=== PATIENT | male | born 1945 | race Caucasian/White ===

== ENCOUNTER 2020-06-04 01:16 | Emergency (ER) | payer MEDICARE, MEDICAID, SELFPAY ==
--- NOTE | ~2020-06-04 | CT_ITS ---
EXAMINATION: CT ABDOMEN AND PELVIS WITHOUT CONTRAST CLINICAL INFORMATION: Left flank pain, lower back pain COMPARISON: None TECHNIQUE: Multidetector volumetric imaging was performed from the superior aspect of the liver through the pubic symphysis. Sagittal and coronal reformatted images were obtained on the technologist's workstation. This CT examination was performed using dose optimization techniques as appropriate, variously including the following: *Automated exposure control *Adjustment of mA and/or kV according to patient size (this includes techniques or standardized protocols for targeted exams where dose is matched to indication/reason for exam; i.e. extremities or head) *Use of iterative reconstruction technique DLP: 514 mGy-cm FINDINGS: LUNG BASES: Mild dependent atelectasis bilaterally. Coronary artery calcifications are present. LIVER, GALLBLADDER, AND BILIARY TREE: The liver is normal in size, shape, and attenuation. No focal hepatic lesion or biliary ductal dilatation is identified. The gallbladder is unremarkable with no evidence of radiopaque gallstones, gallbladder wall thickening, or obvious pericholecystic inflammatory changes. PANCREAS: Unremarkable. SPLEEN: Unremarkable. ADRENAL GLANDS: Unremarkable. KIDNEYS AND URETERS: The kidneys are normal in size, shape, and attenuation. No hydronephrosis, hydroureter, or calculi seen. No perinephric stranding. BLADDER: Partially distended with mildly thick-walled appearance. Right-sided bladder diverticulum is noted. GASTROINTESTINAL TRACT: No evidence of bowel obstruction. No significant bowel wall thickening seen. Large amount of stool is present. No free fluid or free air is seen. ABDOMINAL WALL: No significant hernia is appreciated. LYMPH NODES: Normal. VASCULAR: There is atherosclerotic calcification along the aorta. PELVIC VISCERA: Unremarkable. OSSEOUS STRUCTURES: Degenerative changes are noted in the spine. CT/CT abdomen pelvis wo con IMPRESSION: 1. No hydronephrosis or calculus identified. 2. Mildly thick-walled appearance of the urinary bladder, which could reflect cystitis or sequelae of chronic outlet obstruction. 3. Large volume of stool.
[2020-06-04 01:28] VITALS: BP 160/81; PULSE 89; RESP 18; TEMP 36.9; O2SAT 100; BMI 21.9
--- NOTE | 2020-06-04 02:10 | ED.GENADULT ---
HPI - General Adult General Chief complaint: Back Pain/Injury Stated complaint: Back pain Time Seen by Provider: 06/04/20 02:02 Source: patient Limitations: no limitations History of Present Illness HPI narrative: 75-year-old male who presents emergency department for evaluation of lower back pain. The patient states that the pain came on gradually 3-5 days ago. He points to his lower back and left flank area when asked to localize the pain. He states the pain is a constant, pressure-like pain that does radiate to his left lower abdomen. He states that the pain is a pressure-like pain which is moderate to severe in intensity. States that currently the pain is 10/10. The pain does not radiate to his legs. He denies any numbness or weakness in his lower extremities. He believes that he may have had a fever at home but did not take his temperature. He denied nausea, vomiting, chest pain, shortness of breath or cough. The patient denied frequency, urgency or dysuria and has not noted any hematuria. The patient states that his gave him some medications for the pain that did not help but he does not know of medications he took. Related Data Previous Rx's Medication Instructions Recorded nitrofurantoin monohyd/m-cryst 100 mg PO Q12H 7 Days #14 cap 06/04/20 [Macrobid] Allergies Allergy/AdvReac Type Severity Reaction Status Date / Time ciprofloxacin [Ciprofloxacin] Allergy Severe RASH AND Verified 06/04/20 01:27 ITCHING ALL OVER Review of Systems Review of Systems: Yes all other systems are reviewed and are negative Neurologic: Denies Abnormal speech present [facility] Past Medical History [facility] Narrative: The patient lives at home with his . Denies tobacco, alcohol and drug use. Medical History Asthma Depression Diabetes High cholesterol HTN (hypertension) Social History Social History Household Members: None Housing: Apartment Are you a primary caretaker to a significant other at home: No Do you presently have visiting nurse or other home services: No Alcohol intake: never Smoking Status: Never smoker Smoked in Last 30 Days: No Use of substances other than those prescribed or required for medical reasons: No Have you been hit, kicked, punched, or otherwise hurt by someone within the past year? If so, by whom?: No Do you feel safe in your current relationship?: No Current Relationship Is there a partner from a previous relationship who is making you feel unsafe now?: No Are you made to feel afraid or neglected: No Advance Directives: No Physical Exam Vital Signs: Vital Signs: Last Vital Signs Temp 98.4 F 06/04/20 01:28 Pulse 89 06/04/20 01:28 Resp 18 06/04/20 01:28 BP 160/81 H 06/04/20 01:28 Pulse Ox 100 06/04/20 01:28 Body Mass Index 21.9 Const: General: cooperative and in distress moderate (Secondary to back pain) Orientation/consciousness: oriented to person and oriented to place Limitations: no limitations HENMT: Head: Yes normal to inspection, Yes normocephalic and Yes atraumatic Ears: external ears normal General nose exam: Normal external nose present Face and sinus: Yes normal facial exam Mouth: Normal oral and palatal mucosa present Throat: Yes posterior oropharynx normal Eyes: Periorbital: periorbital findings normal Eyelids: Yes eyelids normal Conjunctivae: conjunctivae normal Sclerae: sclerae normal Corneas: corneas normal Pupils: Equal, round and reactive pupils present Direct Ophthalmoscopy: normal light reflex Neck: Neck: Yes full ROM, Yes no lymphadenopathy, Yes no meningeal signs, Yes trachea midline and Yes supple Chest: Chest palpation & inspection: normal inspection of the chest and normal palpation of entire chest wall Resp: Effort & Inspection: normal respiratory effort and able to speak in complete sentences Auscultation: clear to auscultation bilaterally Cardio: Rate: regular rate Rhythm: regular rhythm Heart sounds: S1 normal heart sound present, S2 normal heart sound present and no murmurs GI: Inspection: Yes normal to inspection Palpation (GI): Soft to palpation, Tenderness to palpation present (GI) in the LLQ (Moderate), no guarding, not rigid and No hepatosplenomegaly present Back/Spine/Pelvis: Back: CVA tenderness (Left sided) Cervical Spine: normal cervical lordosis Thoracic/Lumbar Spine: thoracic and lumbar spine normal to inspection, paraspinal muscle tenderness on the left in the mid lumbar and in the lower lumbar and lumbar spinal tenderness at L3, at L4 and at L5 Skin: Lesions: no lesions Rashes: no rashes Wounds: no wounds Neuro: General: oriented to person, oriented to place and no meningeal signs Cranial nerves: Yes CN's II-XII intact bilaterally and Yes Equal, round and reactive pupils present Cognition (Neuro): normal cognition Speech: No Abnormal speech present Motor exam (neuro): 5/5 motor strength present throughout Extrem: General: Yes normal to inspection and Yes full ROM Psych: Appearance: well kempt Mental Status: mental status grossly normal Speech and movement: Normal speech and movement present Affect: normal affect Attitude: cooperative Thought process: Normal thought process present Thought content: Normal thought content present Course Course Course Narrative: 75-year-old male who presents emergency department for evaluation of left sided back and flank tenderness times 3-4 days which is gotten progressively worse. The patient's examination did reveal tenderness with palpation of the left lumbar paraspinal muscles, lumbar vertebrae, left lower quadrant and left CVA tenderness. The patient's differential includes but is not limited to musculoskeletal injury and possible renal stone. I did order laboratory evaluation and a CT scan of the patient's abdomen pelvis without IV contrast. The patient's pain will be treated with Toradol 30 mg IV. 0350: The patient feels significantly better after receiving the Toradol IV. His laboratory evaluation is consistent with a urinary tract infection. CT scan of the abdomen and pelvis without contrast did reveal bladder wall thickening which could be consistent with acute cystitis, he has arthritic changes of his spine and there were no other significant abnormalities noted to explain his back pain. The patient was given a dose of Macrobid 100 mg orally and will be started on Macrobid 100 mg twice a day for 7 days. He was advised to take ibuprofen Tylenol for his pain. He was given verbal and printed instructions and discharged home. Medical Decision Making Lab Data Result diagrams: 06/04/20 02:54 06/04/20 02:54 Labs: Lab Results 06/04/20 06/04/20 06/04/20 Range/Units 02:54 02:54 02:54 WBC 7.5 (4.8-10.8) X10*3/uL RBC 3.92 L (4.60-5.80) X10*6/uL Hgb 12.7 L (14.0-18.0) g/dl Hct 38.7 L (42-52) % MCV 98.7 H (80-98) fL MCH 32.4 (27.0-33.0) pg MCHC 32.8 (31.0-36.0) g/dl RDW 12.2 (11.0-16.0) % Plt Count 143 L (160-400) X10*3/uL MPV 10.3 (9.4-12.4) fL Immature Gran % (Auto) 0.3 (0.0-0.4) % Neut % (Auto) 54.2 (45-73) % Lymph % (Auto) 34.9 (20-40) % Garrett % (Auto) 9.0 (2-11) % Eos % (Auto) 1.3 (0-4) % Baso % (Auto) 0.3 (0-2) % Lymph # (Auto) 2.6 (1.2-4.9) X10*3/uL Garrett # (Auto) 0.7 (0.1-1.2) X10*3/uL Eos # (Auto) 0.1 (0.0-0.4) X10*3/uL Baso # (Auto) 0.0 (0.0-0.2) X10*3/uL Abs Immat Gran (auto) 0.02 (0.00-0.03) X10*3/uL Absolute Neuts (auto) 4.0 (2.0-8.3) X10*3/uL Absolute Nucleated RBC 0.000 (0.0-0.012) X10*3/uL Nucleated RBC % (auto) 0.0 (0.0-0.2) /100WBC Sodium 141 (135-145) mmol/L Potassium 4.0 (3.3-5.1) mmol/L Chloride 106 (96-108) mmol/L Carbon Dioxide 24 (22-29) mmol/L Anion Gap 15 (12-20) BUN 20 H (9-16) mg/dL Creatinine 1.15 (0.5-1.4) mg/dL Estim Creat Clear Calc 45.4 Estimated GFR > 60 Random Glucose 158 H (60-115) mg/dL Calcium 8.6 (8.4-10.2) mg/dL Total Bilirubin 0.3 (0.0-1.0) mg/dL AST 16 (5-37) U/L ALT 12 (0-40) U/L Alkaline Phosphatase 40 (39-117) U/L Total Protein 6.6 (6.5-8.0) g/dL Albumin 3.8 (3.5-5.0) g/dL Lipase 14 (8-78) U/L Urine Color Urine Appearance Urine pH (5.0-8.0) Ur Specific [place] (1.005-1.025) Urine Protein (NEG-TRACE) MG/DL Urine Glucose (UA) (NEG) MG/DL Urine Ketones (NEG) MG/DL Urine Blood (NEG) Urine Nitrite (NEG) Ur Leukocyte Esterase (NEG) Urine RBC (0) /HPF Urine WBC (0-4) /HPF Ur Squamous Epith Cells /LPF Urine Bacteria /LPF 06/04/20 Range/Units 03:22 WBC (4.8-10.8) X10*3/uL RBC (4.60-5.80) X10*6/uL Hgb (14.0-18.0) g/dl Hct (42-52) % MCV (80-98) fL MCH (27.0-33.0) pg MCHC (31.0-36.0) g/dl RDW (11.0-16.0) % Plt Count (160-400) X10*3/uL MPV (9.4-12.4) fL Immature Gran % (Auto) (0.0-0.4) % Neut % (Auto) (45-73) % Lymph % (Auto) (20-40) % Garrett % (Auto) (2-11) % Eos % (Auto) (0-4) % Baso % (Auto) (0-2) % Lymph # (Auto) (1.2-4.9) X10*3/uL Garrett # (Auto) (0.1-1.2) X10*3/uL Eos # (Auto) (0.0-0.4) X10*3/uL Baso # (Auto) (0.0-0.2) X10*3/uL Abs Immat Gran (auto) (0.00-0.03) X10*3/uL Absolute Neuts (auto) (2.0-8.3) X10*3/uL Absolute Nucleated RBC (0.0-0.012) X10*3/uL Nucleated RBC % (auto) (0.0-0.2) /100WBC Sodium (135-145) mmol/L Potassium (3.3-5.1) mmol/L Chloride (96-108) mmol/L Carbon Dioxide (22-29) mmol/L Anion Gap (12-20) BUN (9-16) mg/dL Creatinine (0.5-1.4) mg/dL Estim Creat Clear Calc Estimated GFR Random Glucose (60-115) mg/dL Calcium (8.4-10.2) mg/dL Total Bilirubin (0.0-1.0) mg/dL AST (5-37) U/L ALT (0-40) U/L Alkaline Phosphatase (39-117) U/L Total Protein (6.5-8.0) g/dL Albumin (3.5-5.0) g/dL Lipase (8-78) U/L Urine Color YELLOW Urine Appearance CLEAR Urine pH 6.5 (5.0-8.0) Ur Specific [place] 1.015 (1.005-1.025) Urine Protein NEG (NEG-TRACE) MG/DL Urine Glucose (UA) NEG (NEG) MG/DL Urine Ketones NEG (NEG) MG/DL Urine Blood TRACE (NEG) Urine Nitrite NEG (NEG) Ur Leukocyte Esterase 1+ H (NEG) Urine RBC 5-9 H (0) /HPF Urine WBC 15-29 H (0-4) /HPF Ur Squamous Epith Cells 1+ /LPF Urine Bacteria 1+ /LPF Discharge Plan Discharge Clinical Impression: Acute UTI Strain of lumbar region Qualifiers: Encounter type: initial encounter Qualified Code(s): S39.012A - Strain of muscle, fascia and tendon of lower back, initial encounter Patient Disposition: Home, Self-Care Instructions: Urinary Tract Infection in Men (ED), Low Back Strain (ED) Additional Instructions: Your blood work was unremarkable. The CT scan of your abdomen and pelvis without IV contrast revealed arthritis of your lower back, bladder infection but no kidney stones. Your urinalysis is consistent with a urinary tract infection. You received Toradol 30 mg IV, this is a strong anti-inflammatory medication and this seemed to help you pain. Take ibuprofen 200 mg pills, 2 pills every 6 hours as needed for pain. Take Tylenol (acetaminophen) 500 mg pills, 2 pills every 4 to 6 hours as needed for pain. For your urine infection take Macrobid 100 mg, 1 pill twice a day for 7 days. Follow-up with your doctor in 2 days. Please return to the emergency department if your symptoms get worse or if you develop any symptoms that are concerning to you. Prescriptions: New nitrofurantoin monohyd/m-cryst [Macrobid] 100 mg capsule 100 mg PO Q12H 7 Days Qty: 14 RF: 0
[2020-06-04] MEDS: Ketorolac Tromethamine 30 MG/ML VIAL IVPUSH (02:27)
[2020-06-04] MEDS: 0.9 % Sodium Chloride 1,000 ML 999 ML IV (02:28)
[2020-06-04 02:58] LABS: MANUAL DIFF FLAG NO
[2020-06-04 03:02] LABS: Basophils Percent Auto 0.3 % (0-2); Eosinophils Absolute Auto 0.1 X10*3/uL (0.0-0.4); Eosinophils Percent Auto 1.3 % (0-4); Hematocrit 38.7 % (42-52); Hemoglobin 12.7 g/dl (14.0-18.0); Imm Gran Abs Auto 0.02 X10*3/uL (0.00-0.03); Imm Gran Pct Auto 0.3 % (0.0-0.4); Lymphocytes Absolute Auto 2.6 X10*3/uL (1.2-4.9); Lymphocytes Percent Auto 34.9 % (20-40); Mean Corpuscular HGB Conc 32.8 g/dl (31.0-36.0); Mean Corpuscular Hemoglobin 32.4 pg (27.0-33.0); Mean Corpuscular Volume 98.7 fL (80-98); Mean Platelet Volume 10.3 fL (9.4-12.4); Monocytes Absolute Auto 0.7 X10*3/uL (0.1-1.2); Neutrophils Percent Auto 54.2 % (45-73); Platelet Count 143 X10*3/uL (160-400); Red Blood Count 3.92 X10*6/uL (4.60-5.80); Red Cell Distribution Width 12.2 % (11.0-16.0); White Blood Count 7.5 X10*3/uL (4.8-10.8)
[2020-06-04 03:29] LABS: Glucose Urine UA NEG (NEG); Leukocyte Esterase Urine 1+ (NEG); Nitrite Urine NEG (NEG); PH 6.5 (5.0-8.0); Specific Gravity - Urine 1.015 (1.005-1.025); UACC Culture Trigger YES; Urine Blood TRACE (NEG); Urine Ketones NEG (NEG); Urine Protein NEG (NEG-TRACE)
[2020-06-04 03:30] LABS: Appearance Urine CLEAR; Color Urine YELLOW
[2020-06-04 03:30] LABS: Lipase 14 U/L (8-78)
[2020-06-04 03:31] LABS: Alanine Aminotransferase 12 U/L (0-40); Albumin Level 3.8 g/dL (3.5-5.0); Alkaline Phosphatase 40 U/L (39-117); Anion Gap 15 (12-20); Aspartate Amino Transferase 16 U/L (5-37); Bilirubin Total 0.3 mg/dL (0.0-1.0); Blood Urea Nitrogen 20 mg/dL (9-16); Calcium 8.6 mg/dL (8.4-10.2); Carbon Dioxide 24 mmol/L (22-29); Chloride 106 mmol/L (96-108); Creatinine Clr Calc Pharmacy 45.4; Estimated Glomerular Filt Rate > 60; Glucose Random 158 mg/dL (60-115); Sodium 141 mmol/L (135-145); Total Protein 6.6 g/dL (6.5-8.0)
[2020-06-04 03:42] LABS: Bacteria Urine 1+ /LPF; Squamous Epithelial Cell Urine 1+ /LPF
[2020-06-04] MEDS: Nitrofurantoin Monohyd/M-Cryst 100 MG CAPSULE PO (03:52)
== END 2020-06-04 04:06 | disposition home or self-care (01) ==
PROVIDERS: Emergency Provider Emergency Medicine Emergency Medical Services
DX: S39.012A Strain of muscle, fascia and tendon of lower back, initial encounter (principal); X58.XXXA Exposure to other specified factors, initial encounter; I10 Essential (primary) hypertension; E11.9 Type 2 diabetes mellitus without complications; E78.5 Hyperlipidemia, unspecified; Y93.9 Activity, unspecified; Y92.9 Unspecified place or not applicable; Y99.9 Unspecified external cause status
CPT/HCPCS: 36415; 74176; 80053; 81001; 81003; 83690; 85025; 87086; 87088; 87186; 96361; 96374; 99284; J1885

== ENCOUNTER 2020-12-20 09:10 | Outpatient (REF) | payer MEDICARE, MEDICAID, SELFPAY ==
[2020-12-20 11:30] LABS: PSA,Total (Free>4and<10) 0.28 ng/mL (0.00-4.00)
== END 2020-12-20 09:11 | disposition home or self-care (01) ==
LOC: HO.LAB 09:10
PROVIDERS: PCP Family Medicine; Visit Provider Urology
DX: N40.0 Benign prostatic hyperplasia without lower urinary tract symptoms (principal)
CPT/HCPCS: 36415; 84153

== ENCOUNTER 2020-12-21 14:00 | Outpatient (REF) | payer MEDICARE, MEDICAID, SELFPAY ==
[2020-12-21 17:14] LABS: Urine Cytology See Pathology rpt
== END 2020-12-21 14:01 | disposition home or self-care (01) ==
LOC: HO.LAB 14:00
PROVIDERS: Visit Provider Urology
DX: N40.0 Benign prostatic hyperplasia without lower urinary tract symptoms (principal); C67.9 Malignant neoplasm of bladder, unspecified; Z85.51 Personal history of malignant neoplasm of bladder
CPT/HCPCS: 52000; 88112; 99212

== ENCOUNTER 2021-07-28 12:31 | Emergency (ER) | payer MEDICARE, MEDICAID, SELFPAY ==
[2021-07-28 13:19] VITALS: BP 152/80; PULSE 82; RESP 16; TEMP 36.9; O2SAT 97; BMI 22.6
[2021-07-28] MEDS: Tetracaine HCl/PF 0.5% Oph Sol 4 ML DROPS 3 DROP EYE-LEFT (14:33)
[2021-07-28] MEDS: Fluorescein Sodium STRIP 1 STRIP EYE-LEFT (14:33)
--- NOTE | 2021-07-28 14:59 | ED.EYEPROB ---
HPI - Eye Problem General Chief complaint: Eye Problems Stated complaint: l eye issue Time Seen by Provider: 07/28/21 14:11 Source: patient Mode of arrival: ambulatory Limitations: no limitations History of Present Illness HPI Narrative: 76-year-old male with bilateral cataracts surgery presents for painted left eye. Patient was cleaning his room, had a broom on the ceiling, and something fell into his left eye this morning. His left eye is painful. He wears glasses but no contacts. States he has no double vision or blurry vision just extreme pain in left eye. Related Data Previous Rx's Medication Instructions Recorded nitrofurantoin 100 mg PO Q12H 7 Days #14 cap 06/04/20 monohydrate/macrocrystals 100 mg capsule (Macrobid) sulfacetamide sodium 10 % eye 1 drp OPHTHALMIC-LEFT Q2H #15 ml 07/28/21 drops (Bleph-10) tobramycin 0.3 % eye drops 1 drp OPHTHALMIC-LEFT Q2H #30 ml 07/28/21 Allergies Allergy/AdvReac Type Severity Reaction Status Date / Time ciprofloxacin [Ciprofloxacin] Allergy Severe RASH AND Verified 06/04/20 01:27 ITCHING ALL OVER Review of Systems Constitutional: Constitutional: Denies body ache(s), Denies chills, Denies fatigue, Denies fever(s), Denies headache(s), Denies malaise and Denies weakness Eyes: Eyes: Reports change in vision, Denies diplopia, Reports irritation, Reports eye pain and Reports requires corrective lenses ENT: Denies vertigo, Denies dizziness, Denies otalgia, Denies headache(s), Denies mouth pain, Denies post nasal drip, Denies sinus pain, Denies sinus pressure, Denies sore throat and Denies throat swelling Cardiovascular: Cardiovascular: Denies chest pain, Denies syncope, Denies leg edema, Denies lightheadedness, Denies Loss of Consciousness, Denies palpitations and Denies dyspnea Respiratory: Respiratory: Denies chest congestion, Denies cough and Denies dyspnea Gastrointestinal: Gastrointestinal: Denies abdominal pain, Denies hematochezia, Denies constipation, Denies diarrhea and Denies vomiting Musculoskeletal: Musculoskeletal: Reports no additional musculoskeletal complaints Neurologic: Denies confusion, Denies vertigo, Denies dizziness, Denies syncope, Denies headache(s) and Denies weakness Psychiatric: Psychiatric: Denies anxiety, Denies confusion and Denies depression Endocrine: Endocrine: Denies fatigue and Denies palpitations Allergic/Immunologic: Allergic/Immunologic: Denies throat swelling PMFSH Past Medical History Medical History Asthma Depression Diabetes H/O primary malignant neoplasm of urinary bladder High cholesterol HTN (hypertension) Social History Social History Household Members: None Housing: Apartment Are you a primary transitional care nurse to a significant other at home: No Do you presently have visiting nurse or other home services: No Alcohol intake: never Advance Directives: No Advance Directives Information Provided: No Physical Exam Vital Signs: Vital Signs: Last Vital Signs Temp 98.4 F 07/28/21 13:19 Pulse 82 07/28/21 13:19 Resp 16 07/28/21 13:19 BP 152/80 H 07/28/21 13:19 Pulse Ox 97 07/28/21 13:19 BMI result Body Mass Index 22.6 Const: General: No confusion Nutritional Appearance: well nourished Orientation/consciousness: No confusion Limitations: no limitations HEENT: Head: Yes normal to inspection, Yes normocephalic and Yes atraumatic Ears: hearing grossly normal bilaterally, external ears normal, TM's normal bilaterally and EAC's normal General nose exam: Normal external nose present Face and sinus: Yes normal facial exam and Yes sinuses nontender Mouth: Normal oral and palatal mucosa present Throat: Yes posterior oropharynx normal Eyes: Alignment and Position: alignment normal Periorbital: periorbital findings normal Eyelids: Yes eyelids normal Conjunctivae: conjunctival abnormal left conjunctival chemosis, conjunctival injection and discharge Corneas: corneas abnormal on the left fluorescein used, diffuse opacification and ulceration within the central cornea and fluorescein used Pupils: Equal, round and reactive pupils present EOM: EOMs intact bilaterally (Pain with eye movement) Direct Ophthalmoscopy: normal light reflex and No no photophobia Neck: Neck: Yes full ROM, Yes no lymphadenopathy and Yes supple Resp: Effort & Inspection: normal respiratory effort and able to speak in complete sentences Auscultation: clear to auscultation bilaterally, no crackles, no rales, no rhonchi and no wheezes Cardio: Rate: regular rate Rhythm: regular rhythm Heart sounds: S1 normal heart sound present and S2 normal heart sound present Skin: General skin exam: no rashes or lesions noted Neuro: General: No confusion Cranial nerves: Yes Equal, round and reactive pupils present Extrem: General: Yes normal to inspection and Yes full ROM Psych: Appearance: grossly normal Affect: normal affect Attitude: cooperative Thought process: Normal thought process present Course Reevaluation(s) Reevaluation #1: On fluorescein stain patient has large corneal ulcer left eye. Ulcer is over more than half of cornea in the superior portion. Lenses steamy. Patient has pain with EOMs. Call Dr. Howard office, he has a family emergency, cannot see patient today, could see patient tomorrow morning at 07:30. Patient has 20/20 vision is in his right eye, has no vision in his left eye. Concern for acute angle glaucoma in Presence of corneal ulcer Called in [facility] in [place], to see if they can get patient in to be seen, after waiting on hold, manufacturing engineer paint states he is unable to see patient today Called [facility], 2 of their providers are out sick, they have no availability to see the patient, and no availability to see him tomorrow. Dr Armenta helped me with tonopen, left eye pressures are 9, 11, 10, 10. Will prescribe ofloxacin drops, patient has an appointment with Dr. Howard tomorrow at 07:30. Explained everything to patient, all questions answered Discharge Plan Discharge Clinical Impression: Corneal ulcer of left eye Patient Disposition: Home, Self-Care Additional Instructions: You have an appointment with Dr. Howard tomorrow at 07:30. This is their address [address] [place] [address] It is imperative for your vision that you keep this appointment. In the meantime, use the drops are prescribed, place 1 drop in your left eye every 2 hours until you see them. Tiene meghan naa con el Dr. Lee yoo?samy a las 07:30. esta es [facility] [employer] [address] [place] [address] Es imperativo para peacock visi?n que asista a esta naa. Mientras tanto, use las gotas que le recetan, coloque 1 gota en peacock sree fernando cada 2 horas hasta que las deana. Prescriptions: New sulfacetamide sodium [Bleph-10] 10 % drops 1 drp ophthalmic-Left Q2H Qty: 15 0RF Rx Instructions: Place 1 drop in left eye for 2 hours until you see the eye doctor tobramycin 0.3 % drops 1 drp ophthalmic-Left Q2H Qty: 30 0RF Rx Instructions: Instill 1 drop in left eye every 2 hours until you see eye doctor No Action nitrofurantoin monohyd/m-cryst [Macrobid] 100 mg capsule 100 mg PO Q12H 7 Days Qty: 14 0RF Rx Instructions: must administer with a meal/food Referrals: Guille Howard [Physician] -
== END 2021-07-28 16:45 | disposition home or self-care (01) ==
PROVIDERS: Emergency Provider Emergency Medicine; PCP Family Medicine
DX: H16.002 Unspecified corneal ulcer, left eye (principal); E11.9 Type 2 diabetes mellitus without complications; I10 Essential (primary) hypertension; J45.909 Unspecified asthma, uncomplicated
CPT/HCPCS: 99283; 99284

== ENCOUNTER 2021-10-16 13:57 | Emergency (ER) | payer MEDICARE, MEDICAID, SELFPAY ==
--- NOTE | ~2021-10-16 | XR_ITS ---
EXAMINATION: XR CHEST CLINICAL INFORMATION: Shortness of breath COMPARISON: None TECHNIQUE: Frontal view of the chest was obtained. FINDINGS: No significant abnormality is noted involving the heart, lungs, mediastinum, bony thorax or soft tissues. There are mild degenerative changes of the spine. XR/XR chest 1V IMPRESSION: Unremarkable examination.
--- NOTE | ~2021-10-16 | CT_ITS ---
EXAMINATION: CT HEAD WITHOUT CONTRAST CLINICAL INFORMATION: Syncope COMPARISON: None TECHNIQUE: Imaging was performed from the skull base to vertex without intravenous administration of contrast. This CT examination was performed using dose optimization techniques as appropriate, variously including the following: *Automated exposure control *Adjustment of mA and/or kV according to patient size (this includes techniques or standardized protocols for targeted exams where dose is matched to indication/reason for exam; i.e. extremities or head) *Use of iterative reconstruction technique Total exam dose length product: 768 mGy-cm FINDINGS: No intra or extra-axial fluid collection, hemorrhage, or mass. No ventriculomegaly. No midline shift or herniation. Basal cisterns are patent. Luna-white matter differentiation is maintained. No territorial encephalomalacia. No significant volume loss. Patchy periventricular and deep white matter hypoattenuation is consistent with mild small vessel ischemic changes. No calvarial fracture or soft tissue abnormality. The mastoid air cells and visualized portions of the paranasal sinuses are well aerated. Status post lateral lens extraction. CT/CT head/brain wo con IMPRESSION: 1. No acute intracranial pathology.
[2021-10-16 14:04] VITALS: BP 161/90; PULSE 99; RESP 33; TEMP 37.3; O2SAT 98; BMI 24.0
--- NOTE | 2021-10-16 14:09 | ECG_ITS ---
Test Reason : overdose? Blood Pressure : / mmHG Vent. Rate : 111 BPM Atrial Rate : 111 BPM P-R Int : 122 ms QRS Dur : 074 ms QT Int : 326 ms P-R-T Axes : 080 060 051 degrees QTc Int : 443 ms Sinus tachycardia Possible Left atrial enlargement Borderline ECG When compared to the previous EKG of No significant changes seen Referred By: Danish Wong Electronically Signed By:Fredi Matt
--- NOTE | 2021-10-16 14:11 | ED.GENADULT ---
HPI - General Adult General Chief complaint: Dyspnea Stated complaint: SOB Time Seen by Provider: 10/16/21 14:08 Source: patient and aircraft electrician Mode of arrival: ambulatory Limitations: no limitations History of Present Illness HPI narrative: 76-year-old male came in to the emergency department for evaluation of shortness of breath and chest pain. Patient was running from home to the ER for evaluation of SOB/chest pain concern if he have heart attack, patient earlier did a long time walking in the street in the hot weather when patient got home he started to have CP/SOB. Patient decided to run to the hospital for further evaluation on arrival while he was triaged patient fell on the ground with no witnessed head injury or seizure activity. In the emergency room patient another brief period unconsciousness with no seizure activity, patient regain his consciousness in less than 10 seconds, patient became emotional and crying. Patient declined using any street drugs, patient feels depressed because his daughter moved to floor the 3 months ago but no SI or HI or hallucination. Patient stated that his breathing and chest pain is better now. Related Data Previous Rx's Medication Instructions Recorded nitrofurantoin 100 mg PO Q12H 7 days #14 caps 06/04/20 monohydrate/macrocrystals 100 mg capsule (Macrobid) sulfacetamide sodium 10 % eye 1 drp ophthalmic-Left Q2H #15 mL 07/28/21 drops (Bleph-10) tobramycin 0.3 % eye drops 1 drp ophthalmic-Left Q2H #30 mL 07/28/21 Allergies Allergy/AdvReac Type Severity Reaction Status Date / Time ciprofloxacin [Ciprofloxacin] Allergy Severe RASH AND Verified 06/04/20 01:27 ITCHING ALL OVER Review of Systems Review of Systems: All other systems are reviewed and are negative Constitutional: Reports as per HPI and Reports no additional constitutional complaints Eyes: Reports as per HPI and Reports no additional eye complaints Reports system reviewed and no additional complaints, except as documented Cardiovascular: Reports as per HPI and Reports no additional cardiovascular complaints Respiratory: Reports as per HPI and Reports no additional respiratory complaints Gastrointestinal: Reports as per HPI and Reports no additional gastrointestinal complaints Genitourinary: Reports no additional female genitourinary complaints Musculoskeletal: Reports no additional musculoskeletal complaints Skin/Breast: Reports system reviewed and no additional complaints, except as docu Psychiatric: Reports no additional psychiatric complaints Endocrine: Reports no additional endocrine complaints Hematologic/Lymphatic: Reports no additional hematologic/lymphatic complaints Allergic/Immunologic: Reports no additional allergic/immunologic complaints Reports system reviewed and no additional complaints, except as documented and Reports Abnormal speech present [facility] Past Medical History Medical History Asthma Depression Diabetes H/O primary malignant neoplasm of urinary bladder High cholesterol HTN (hypertension) Social History Social History Household Members: None Housing: Apartment Are you a primary customer care professional to a significant other at home: No Do you presently have visiting nurse or other home services: No Alcohol intake: never Patient Tobacco Use Status: Current everyday Tobacco user Smoked in Last 30 Days: Yes Use of substances other than those prescribed or required for medical reasons: No Advance Directives: No Advance Directives Information Provided: No Physical Exam ED Vital Signs: Vital Signs - 24 hr 10/16/21 14:04 Temperature 99.2 F Pulse Rate 99 Respiratory Rate 33 H Blood Pressure 161/90 H Pulse Oximetry 98 Oxygen Delivery Method Nasal Cannula BMI result Body Mass Index 24.0 Vital signs have been reviewed as appeared to be correct. Blood pressure normal. Heart rate normal. Respiration rate normal. Temperature normal. Oxygen saturation normal. Appearance: Alert. Oriented X3. No acute distress. Head: Normal external exam. Normocephalic. Atraumatic. No Mayer signs noted. No raccoon eyes noted Eyes: PERRLA. EOMI. Conjunctiva and sclera normal. Eyelids normal. ENT: TM's Normal. Pharynx normal. Uvula midline. Moist mucous membranes. No trismus noted. No drooling noted. No muffled voice noted. Neck: Normal inspection. Neck supple. FROM. No adenopathy. Thyroid Normal. No meningeal signs. No neck mass noted. CVS: Normal heart rate and rhythm. Heart sound normal. No murmurs noted. Pulses normal throughout. Respiratory: No respiratory distress. Painless inspiration. Breath sounds normal. No wheezes/rales/rhonchi noted. Chest nontender. No accessory muscle usage noted or decreased air movement noted. Abdomen: Soft and nontender. Bowel sounds normal in all 4 quadrants. No distention noted. No organomegaly noted. No visible injury noted. Back: No CVA tenderness. Full range of motion noted. Skin: Skin warm and dry. Normal skin color. Normal skin turgor. No rashes/lesions/lacerations noted. Extremities: No lower extremity edema. Extremities exhibit normal range of motion. Extremities nontender. Neuro: Oriented X 3. Cranial nerve exam: II-XII are grossly intact No motor deficit. No sensory deficit. Reflexes normal. Course Reevaluation(s) Reevaluation #1: 76-year-old male came in for evaluation of CP/SOB after after walking and running a long distance in the hot weather, patient remain in the ED monitored for about 3 hours had unremarkable labs and chest x-ray. Will discharge patient after negative 2nd troponin. Elevated lactic acid no suspicion of infection lactic acidosis is likely secondary to chronic asthma/COPD. Time: 15:55 Medical Decision Making Lab Data Lab results reviewed: Yes I reviewed the patient's lab results. Result diagrams: 10/16/21 14:14 10/16/21 14:14 Labs: Lab Results 10/16/21 10/16/21 10/16/21 Range/Units 14:13 14:14 14:14 WBC 6.5 (4.8-10.8) X10*3/uL RBC 4.22 L (4.60-5.80) X10*6/uL Hgb 13.8 L (14.0-18.0) g/dl Hct 40.4 L (42.0-52.0) % MCV 95.7 (80.0-98.0) fL MCH 32.7 (27.0-33.0) pg MCHC 34.2 (31.0-36.0) g/dl RDW 12.3 (11.0-16.0) % Plt Count 158 L (160-400) X10*3/uL MPV 10.8 (9.4-12.4) fL Immature Gran % (Auto) 0.2 (0.0-0.4) % Neut % (Auto) 42.4 L (45-73) % Lymph % (Auto) 48.3 H (20-40) % [place] % (Auto) 7.1 (2-11) % Eos % (Auto) 1.7 (0-4) % Baso % (Auto) 0.3 (0-2) % Lymph # (Auto) 3.1 (1.2-4.9) X10*3/uL [place] # (Auto) 0.5 (0.1-1.2) X10*3/uL Eos # (Auto) 0.1 (0.0-0.4) X10*3/uL Baso # (Auto) 0.0 (0.0-0.2) X10*3/uL Abs Immat Gran (auto) 0.01 (0.00-0.03) X10*3/uL Absolute Neuts (auto) 2.8 (2.0-8.3) x10*3/uL Absolute Nucleated RBC 0.000 (0.0-0.012) X10*3/uL Nucleated RBC % (auto) 0.0 (0.0-0.2) /100WBC Sodium 139 (135-145) mmol/L Potassium 4.2 (3.3-5.1) mmol/L Chloride 109 H (96-108) mmol/L Carbon Dioxide 17 L (22-29) mmol/L Anion Gap 17 (12-20) BUN 22 H (9-16) mg/dL Creatinine 1.28 (0.5-1.4) mg/dL Estim Creat Clear Calc 41.1 Estimated GFR 55 Random Glucose 103 (60-115) mg/dL Lactic Acid (0.5-2.0) mmol/L Calcium 9.2 D (8.4-10.2) mg/dL Total Bilirubin 0.5 (0.0-1.0) mg/dL Direct Bilirubin 0.2 (0.0-0.5) mg/dL AST 27 D (5-37) U/L ALT 19 (0-40) U/L Alkaline Phosphatase 41 (39-117) U/L Troponin I High Sens 4.7 (<3.5-35.0) ng/L B-Natriuretic Peptide 44 (<100) pg/mL Total Protein 7.3 (6.5-8.0) g/dL Albumin 4.3 (3.5-5.0) g/dL Lipase 8 (8-78) U/L Influenza Type A (PCR) (Negative) Influenza Type B (PCR) (Negative) RSV RNA Qual (PCR) (Negative) SARS-CoV-2 RNA (RT-PCR) (Negative) 07/17/22 07/17/22 Range/Units 14:14 14:20 WBC (4.8-10.8) X10*3/uL RBC (4.60-5.80) X10*6/uL Hgb (14.0-18.0) g/dl Hct (42.0-52.0) % MCV (80.0-98.0) fL MCH (27.0-33.0) pg MCHC (31.0-36.0) g/dl RDW (11.0-16.0) % Plt Count (160-400) X10*3/uL MPV (9.4-12.4) fL Immature Gran % (Auto) (0.0-0.4) % Neut % (Auto) (45-73) % Lymph % (Auto) (20-40) % [place] % (Auto) (2-11) % Eos % (Auto) (0-4) % Baso % (Auto) (0-2) % Lymph # (Auto) (1.2-4.9) X10*3/uL [place] # (Auto) (0.1-1.2) X10*3/uL Eos # (Auto) (0.0-0.4) X10*3/uL Baso # (Auto) (0.0-0.2) X10*3/uL Abs Immat Gran (auto) (0.00-0.03) X10*3/uL Absolute Neuts (auto) (2.0-8.3) x10*3/uL Absolute Nucleated RBC (0.0-0.012) X10*3/uL Nucleated RBC % (auto) (0.0-0.2) /100WBC Sodium (135-145) mmol/L Potassium (3.3-5.1) mmol/L Chloride (96-108) mmol/L Carbon Dioxide (22-29) mmol/L Anion Gap (12-20) BUN (9-16) mg/dL Creatinine (0.5-1.4) mg/dL Estim Creat Clear Calc Estimated GFR Random Glucose (60-115) mg/dL Lactic Acid 2.3 H* (0.5-2.0) mmol/L Calcium (8.4-10.2) mg/dL Total Bilirubin (0.0-1.0) mg/dL Direct Bilirubin (0.0-0.5) mg/dL AST (5-37) U/L ALT (0-40) U/L Alkaline Phosphatase (39-117) U/L Troponin I High Sens (<3.5-35.0) ng/L B-Natriuretic Peptide (<100) pg/mL Total Protein (6.5-8.0) g/dL Albumin (3.5-5.0) g/dL Lipase (8-78) U/L Influenza Type A (PCR) NEGATIVE (Negative) Influenza Type B (PCR) NEGATIVE (Negative) RSV RNA Qual (PCR) NEGATIVE (Negative) SARS-CoV-2 RNA (RT-PCR) NEGATIVE (Negative) Imaging Data Chest x-ray: Attestation: I personally reviewed and interpreted this imaging study as follows: Radiologist's impression: Unremarkable examination. Head CT: Attestation: I personally reviewed and interpreted this imaging study as follows: Radiologist's impression: No acute intracranial pathology. Discharge Plan Discharge Clinical Impression: Non-cardiac chest pain, Acute dyspnea Patient Disposition: Home, Self-Care Instructions: Noncardiac Chest Pain (ED) Prescriptions: No Action nitrofurantoin monohyd/m-cryst [Macrobid] 100 mg capsule 100 mg PO Q12H 7 Days Qty: 14 0RF Rx Instructions: must administer with a meal/food sulfacetamide sodium [Bleph-10] 10 % drops 1 drp ophthalmic-Left Q2H Qty: 15 0RF Rx Instructions: Place 1 drop in left eye for 2 hours until you see the eye doctor tobramycin 0.3 % drops 1 drp ophthalmic-Left Q2H Qty: 30 0RF Rx Instructions: Instill 1 drop in left eye every 2 hours until you see eye doctor Referrals: Genia Jarquin MD [Primary Care Provider] -
[2021-10-16 14:20] LABS: MANUAL DIFF FLAG NO
[2021-10-16 14:26] LABS: Basophils Percent Auto 0.3 % (0-2); Eosinophils Absolute Auto 0.1 X10*3/uL (0.0-0.4); Eosinophils Percent Auto 1.7 % (0-4); Hematocrit 40.4 % (42.0-52.0); Hemoglobin 13.8 g/dl (14.0-18.0); Imm Gran Abs Auto 0.01 X10*3/uL (0.00-0.03); Imm Gran Pct Auto 0.2 % (0.0-0.4); Lymphocytes Absolute Auto 3.1 X10*3/uL (1.2-4.9); Lymphocytes Percent Auto 48.3 % (20-40); Mean Corpuscular HGB Conc 34.2 g/dl (31.0-36.0); Mean Corpuscular Hemoglobin 32.7 pg (27.0-33.0); Mean Corpuscular Volume 95.7 fL (80.0-98.0); Mean Platelet Volume 10.8 fL (9.4-12.4); Monocytes Absolute Auto 0.5 X10*3/uL (0.1-1.2); Monocytes Percent Auto 7.1 % (2-11); Neutrophils Absolute Auto 2.8 x10*3/uL (2.0-8.3); Neutrophils Percent Auto 42.4 % (45-73); Platelet Count 158 X10*3/uL (160-400); Red Blood Count 4.22 X10*6/uL (4.60-5.80); Red Cell Distribution Width 12.3 % (11.0-16.0); White Blood Count 6.5 X10*3/uL (4.8-10.8)
[2021-10-16 14:40] LABS: Alanine Aminotransferase 19 U/L (0-40); Albumin Level 4.3 g/dL (3.5-5.0); Alkaline Phosphatase 41 U/L (39-117); Anion Gap 17 (12-20); Aspartate Amino Transferase 27 U/L (5-37); Bilirubin Direct 0.2 mg/dL (0.0-0.5); Bilirubin Total 0.5 mg/dL (0.0-1.0); Blood Urea Nitrogen 22 mg/dL (9-16); Calcium 9.2 mg/dL (8.4-10.2); Carbon Dioxide 17 mmol/L (22-29); Chloride 109 mmol/L (96-108); Creatinine Clr Calc Pharmacy 41.1; Estimated Glomerular Filt Rate 55; Glucose Random 103 mg/dL (60-115); Lipase 8 U/L (8-78); Potassium 4.2 mmol/L (3.3-5.1); Sodium 139 mmol/L (135-145); Total Protein 7.3 g/dL (6.5-8.0)
[2021-10-16 14:43] LABS: B Type Natriuretic Peptide 44 pg/mL (<100); Troponin-I High Sensitivity 4.7 ng/L (<3.5-35.0)
[2021-10-16 14:52] LABS: Lactic Acid 2.3 mmol/L (0.5-2.0)
[2021-10-16 14:58] LABS: Influenza A PCR NEGATIVE (Negative); Influenza B PCR NEGATIVE (Negative); Resp Syncy Virus RNA Qual PCR NEGATIVE (Negative); SARS COV2 PCR INHOUSE NEGATIVE (Negative)
[2021-10-16 16:25] LABS: Reflex Lactate? Lactic Acid Added
[2021-10-16 17:08] VITALS: BP 152/70; PULSE 47; RESP 14; O2SAT 100
[2021-10-16 17:32] LABS: ~Lactic Acid-LAB USE ONLY 0.6 mmol/L (0.5-2.0)
[2021-10-16 17:42] LABS: Troponin-I High Sensitivity 5.4 ng/L (<3.5-35.0)
== END 2021-10-16 18:01 | disposition home or self-care (01) ==
PROVIDERS: Emergency Provider Emergency Medicine; PCP Family Medicine
DX: R55 Syncope and collapse (principal); R06.02 Shortness of breath; R07.89 Other chest pain; F17.200 Nicotine dependence, unspecified, uncomplicated; Z71.6 Tobacco abuse counseling; Z20.822 Contact with and (suspected) exposure to COVID-19; Z79.899 Other long term (current) drug therapy
CPT/HCPCS: 0241U; 36415; 70450; 71045; 80048; 80076; 83605; 83690; 83880; 84484; 85025; 87040; 93005; 99284

== ENCOUNTER 2021-12-22 09:01 | Outpatient (REF) | payer MEDICARE, MEDICAID, SELFPAY ==
[2021-12-22 16:35] LABS: Urine Cytology See Pathology rpt
== END 2021-12-22 09:02 | disposition home or self-care (01) ==
LOC: HO.LAB 09:01
PROVIDERS: Visit Provider Urology
DX: C67.9 Malignant neoplasm of bladder, unspecified (principal)
CPT/HCPCS: 52000; 88112; 99212

== ENCOUNTER 2022-03-30 12:09 | Emergency (ER) | payer MEDICARE, MEDICAID, SELFPAY ==
--- NOTE | 2022-03-30 12:32 | ED.EAR ---
HPI - Ear Problem General Chief complaint: Ear Problems Stated complaint: fb in ear Time Seen by Provider: 03/30/22 12:39 Source: patient and filer and sander Mode of arrival: ambulatory Limitations: language barrier History of Present Illness HPI Narrative: 77 yo male w/ past medical history of HTN, HLD, bladder cancer here with decreased hearing right ear and pain after using a Q tip to the right ear. Patient reports he spent about 10 minutes cleaning his right ear with multiple Q tips. After this he felt pain and decreased hearing right ear. No drainage. No fevers, chills. Related Data Home Medications Medication Instructions Recorded Confirmed lisinopril 20 mg tablet 20 mg PO DAILY 12/21/21 lorazepam 1 mg tablet 1 mg PO DAILY PRN 12/21/21 mirtazapine 45 mg tablet 45 mg PO BEDTIME 12/21/21 rosuvastatin 20 mg tablet 20 mg PO BEDTIME 12/21/21 Previous Rx's Medication Instructions Recorded sulfacetamide sodium 10 % eye 1 drp ophthalmic-Left Q2H #15 mL 07/28/21 drops (Bleph-10) tobramycin 0.3 % eye drops 1 drp ophthalmic-Left Q2H #30 mL 07/28/21 nitrofurantoin 100 mg PO Q12H 1 day #2 caps 12/22/21 monohydrate/macrocrystals 100 mg capsule (Macrobid) amoxicillin 500 mg capsule 500 mg PO BID #20 caps 03/30/22 Allergies Allergy/AdvReac Type Severity Reaction Status Date / Time ciprofloxacin [Ciprofloxacin] Allergy Severe RASH AND Verified 12/21/21 15:09 ITCHING ALL OVER Review of Systems Review of Systems: Yes all other systems are reviewed and are negative Constitutional: Constitutional: Reports no additional constitutional complaints, Denies body ache(s), Denies chills, Denies fever(s), Denies headache(s) and Denies weakness Eyes: Eyes: Reports no additional eye complaints and Denies change in vision ENT: Reports system reviewed and no additional complaints, except as documented, Denies dizziness, Reports otalgia, Denies headache(s), Reports hearing loss, Denies nasal congestion, Denies nasal discharge and Denies neck pain Cardiovascular: Cardiovascular: Reports no additional cardiovascular complaints, Denies chest pain, Denies leg edema and Denies dyspnea Respiratory: Respiratory: Reports no additional respiratory complaints, Denies cough and Denies dyspnea Gastrointestinal: Gastrointestinal: Reports no additional gastrointestinal complaints, Denies abdominal pain, Denies diarrhea, Denies nausea and Denies vomiting Genitourinary: Genitourinary: Denies urinary incontinence Musculoskeletal: Musculoskeletal: Reports no additional musculoskeletal complaints, Denies back pain, Denies arthralgias, Denies joint swelling, Denies neck pain, Denies numbness and Denies tingling Integumentary/Breasts: Skin/Breast: Reports system reviewed and no additional complaints, except as docu and Denies rash Neurologic: Reports system reviewed and no additional complaints, except as documented, Denies Abnormal speech present, Denies dizziness, Denies headache(s), Denies numbness, Denies tingling and Denies weakness [facility] Past Medical History Attestation statement: The following information was validated with the patient. Source: old records reviewed and nursing notes reviewed Medical History Asthma Depression Diabetes H/O primary malignant neoplasm of urinary bladder High cholesterol HTN (hypertension) Social History Social History Household Members: None Housing: Apartment Are you a primary technical healthcare consultant to a significant other at home: No Do you presently have visiting nurse or other home services: No Alcohol intake: never Patient Tobacco Use Status: Current everyday Tobacco user Advance Directives: No Advance Directives Information Provided: Yes Physical Exam Vital Signs: Vital Signs: Last Vital Signs Temp 97.4 F 03/30/22 12:34 Pulse 88 03/30/22 12:34 Resp 18 03/30/22 12:34 BP 177/82 H 03/30/22 12:34 Pulse Ox 96 03/30/22 12:34 O2 Del Method 03/30/22 12:34 BMI result Body Mass Index 25.3 Const: General: cooperative, healthy appearing, comfortable and no acute distress Orientation/consciousness: patient oriented x3 Limitations: no limitations HEENT: Head: Yes normal to inspection Ears: hearing grossly normal bilaterally, TM normal on the left, Abnormal EAC present (R canal with erythema/swelling ) and TM abnormal (R TM with bulging/erythema. No obvious perforation but limited view ) General nose exam: Normal external nose present Face and sinus: Yes normal facial exam Mouth: Normal oral and palatal mucosa present Throat: Yes posterior oropharynx normal Eyes: General: appearance normal, both eyes and all related structures Pupils: Equal, round and reactive pupils present Neck: Neck: Yes normal visual inspection Chest: Chest palpation & inspection: normal inspection of the chest Resp: Effort & Inspection: normal respiratory effort Auscultation: clear to auscultation bilaterally Cardio: Rate: regular rate Rhythm: regular rhythm Peripheral pulses: Peripheral pulses 2+ throughout GI: Inspection: Yes normal to inspection Palpation (GI): Soft to palpation and nontender Auscultation: normal bowel sounds Back/Spine/Pelvis: Thoracic/Lumbar Spine: thoracic and lumbar spine normal to inspection Skin: General skin exam: no rashes or lesions noted Neuro: General: patient oriented x3, no focal motor deficits and normal sensation to monofilament Cranial nerves: Yes Equal, round and reactive pupils present Cognition (Neuro): normal cognition Speech: No Abnormal speech present Gait exam (Neuro): Normal gait present Motor exam (neuro): 5/5 motor strength present throughout Extrem: General: Yes normal to inspection Medical Decision Making Medical Decision Making MDM Narrative: This 77-year-old male who presents with right ear pain and decreased hearing after cleaning his ear quite extensively with several Q-tips this morning. Patient is concern for foreign body. No foreign body on exam. The TM is quite erythematic and bulging and I am unable to completely visualize it. I do not see any obvious perforation. Patient ear canals quite swollen and irritated as well. Patient will be started on oral antibiotics. Recommend the patient follow-up with ENT for repeat evaluation to rule out any perforation. Patient is aware he may need additional testing outpatient. 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 Prescriptions: New amoxicillin 500 mg capsule 500 mg PO BID Qty: 20 0RF No Action sulfacetamide sodium [Bleph-10] 10 % drops 1 drp ophthalmic-Left Q2H Qty: 15 0RF Rx Instructions: Place 1 drop in left eye for 2 hours until you see the eye doctor tobramycin 0.3 % drops 1 drp ophthalmic-Left Q2H Qty: 30 0RF Rx Instructions: Instill 1 drop in left eye every 2 hours until you see eye doctor rosuvastatin 20 mg tablet 20 mg PO BEDTIME mirtazapine 45 mg tablet 45 mg PO BEDTIME lorazepam 1 mg tablet 1 mg PO DAILY PRN lisinopril 20 mg tablet 20 mg PO DAILY nitrofurantoin monohyd/m-cryst [Macrobid] 100 mg capsule 100 mg PO Q12H 1 Days Qty: 2 0RF Rx Instructions: must administer with a meal/food Referrals: Nitin Jin [Physician] - 2 weeks Interventions: ED Discharge Assessment Last Done: 03/30/22 12:56 Discharge Date/Time: 03/30/22 12:57 Print Language: Kittitian
[2022-03-30 12:34] VITALS: BP 177/82; PULSE 88; RESP 18; TEMP 36.3; O2SAT 96; BMI 25.3
== END 2022-03-30 12:57 | disposition home or self-care (01) ==
PROVIDERS: Emergency Provider Student in an Organized Health Care Education/Training Program; PCP Family Medicine
DX: H66.91 Otitis media, unspecified, right ear (principal); H92.01 Otalgia, right ear; S09.8XXA Other specified injuries of head, initial encounter; Z79.02 Long term (current) use of antithrombotics/antiplatelets; Z79.899 Other long term (current) drug therapy; X58.XXXA Exposure to other specified factors, initial encounter; Y93.E8 Activity, other personal hygiene; Y92.031 Bathroom in apartment as the place of occurrence of the external cause; Y99.9 Unspecified external cause status
CPT/HCPCS: 99282; 99283

== ENCOUNTER 2022-09-03 14:01 | Inpatient (IN) | payer MEDICARE, MEDICAID, SELFPAY ==
[2022-09-03 14:10] VITALS: PULSE 91; PULSE 92; RESP 18; TEMP 36.6; O2SAT 97; O2SAT 98; BMI 20.9
--- NOTE | 2022-09-03 14:27 | ECG_ITS ---
Test Reason : AGE/ HIGH BP Blood Pressure : / mmHG Vent. Rate : 068 BPM Atrial Rate : 068 BPM P-R Int : 120 ms QRS Dur : 088 ms QT Int : 382 ms P-R-T Axes : 059 025 038 degrees QTc Int : 406 ms Normal sinus rhythm Normal ECG When compared with ECG of 16-OCT-2021 13:53, Vent. rate has decreased BY 43 BPM Referred By: Gerard Herrera Electronically Signed By:Fredi Matt
[2022-09-03 14:34] VITALS: BP 170/99; PULSE 92; RESP 18; TEMP 36.6
[2022-09-03 14:51] LABS: MANUAL DIFF FLAG NO
[2022-09-03 14:53] LABS: Basophils Percent Auto 0.4 % (0-2); Eosinophils Absolute Auto 0.1 X10*3/uL (0.0-0.4); Eosinophils Percent Auto 1.3 % (0-4); Hematocrit 44.3 % (42.0-52.0); Hemoglobin 14.6 g/dl (14.0-18.0); Imm Gran Abs Auto 0.01 X10*3/uL (0.00-0.03); Imm Gran Pct Auto 0.2 % (0.0-0.4); Lymphocytes Absolute Auto 2.2 X10*3/uL (1.2-4.9); Mean Corpuscular Hemoglobin 32.2 pg (27.0-33.0); Mean Corpuscular Volume 97.8 fL (80.0-98.0); Mean Platelet Volume 10.2 fL (9.4-12.4); Monocytes Absolute Auto 0.4 X10*3/uL (0.1-1.2); Monocytes Percent Auto 7.3 % (2-11); Neutrophils Absolute Auto 2.8 x10*3/uL (2.0-8.3); Neutrophils Percent Auto 50.8 % (45-73); Platelet Count 155 X10*3/uL (160-400); Red Blood Count 4.53 X10*6/uL (4.60-5.80); Red Cell Distribution Width 12.3 % (11.0-16.0); White Blood Count 5.5 X10*3/uL (4.8-10.8)
[2022-09-03 14:56] LABS: Appearance Urine Hazy; Color Urine Yellow; Glucose Urine UA Negative (Negative); Leukocyte Esterase Urine Large (3+) (Negative); Nitrite Urine Negative (Negative); PH 5.5 (5.0-9.0); Specific Gravity - Urine <= 1.005 (1.005-1.025); UMIC TRIGGER UACC YES; Urine Blood Negative (Negative); Urine Ketones Negative (Negative); Urine Protein Negative (Neg-Trace)
[2022-09-03 14:59] LABS: Bacteria Urine None Seen (None Seen); RBC Urine 0-2 /HPF (0-2); Squamous Epithelial Cell Urine 0-2 /HPF (0-2); UACC Culture Trigger YES; WBC Urine 21-50 /HPF (0-5)
[2022-09-03 15:02] LABS: Amphetamine Screen Urine Not Detected (Not Detect); Barbiturates, Urine Not Detected (Not Detect); Benzodiazepines Screen Urine Not Detected (Not Detect); Cannabinoid Screen Urine Not Detected (Not Detect); Cocaine Screen Urine Not Detected (Not Detect); Fentanyl, urine Not Detected (Not Detect); Opiate Screen Urine Not Detected (Not Detect); Phencyclidine Screen Urine Not Detected (Not Detect)
[2022-09-03 15:08] LABS: COVID-19 Test Negative (Negative); IDNOW Serial# BCCEAD1C
--- NOTE | 2022-09-03 15:23 | ED_ITS ---
HPI - General Adult General Chief complaint: Psychiatric Symptoms Stated complaint: CRISIS,SI, RESTRAINED,RESEARCH PROJECT MANAGER PER EMS Time Seen by Provider: 09/03/22 14:28 Source: patient, EMS and RN notes reviewed Mode of arrival: EMS Limitations: no limitations History of Present Illness HPI narrative: Patient is a 77-year-old male with history of bladder cancer presenting to the emergency department via EMS on a Section 12 after writing a note expressing suicidal ideation and attempting to ingest a large quantity of pills. Patient endorses SI, denies any homicidal ideation, auditory or visual hallucinations. He reports increased stress recently. Denies any physical complaints. MD complaint: suicidal ideation Onset (ago): minute(s) Treatments prior to arrival: none Related Data Home Medications Medication Instructions Recorded Confirmed lisinopril 20 mg tablet 20 mg PO DAILY 12/21/21 09/03/22 lorazepam 1 mg tablet 1 mg PO DAILY PRN Anxiety 12/21/21 09/03/22 mirtazapine 45 mg tablet 45 mg PO BEDTIME 12/21/21 09/03/22 amlodipine 5 mg tablet 5 mg PO DAILY 09/03/22 09/03/22 Allergies Allergy/AdvReac Type Severity Reaction Status Date / Time ciprofloxacin [Ciprofloxacin] Allergy Severe RASH AND Verified 09/03/22 15:47 ITCHING ALL OVER Review of Systems Review of Systems: As per HPI. Yes all other systems are reviewed and are negative Constitutional: Constitutional: Reports as per HPI PMF Past Medical History Medical History Asthma Depression Diabetes H/O primary malignant neoplasm of urinary bladder High cholesterol HTN (hypertension) Social History Social History Household Members: None Housing: Apartment Are you a primary child care centre manager to a significant other at home: No Do you presently have visiting nurse or other home services: No Alcohol intake: never Patient Tobacco Use Status: Current everyday Tobacco user Smoked in Last 30 Days: Yes Use of substances other than those prescribed or required for medical reasons: No Substance Use Type: Tranquilizers Substance Use Frequency: Chronic Longstanding Last Used Substance: Unknown Any prior treatment program specific to substance use: No Advance Directives: No Advance Directives Information Provided: No Healthcare Proxy: No Guardian: No Physical Exam ED Vital Signs: Vital Signs - 24 hr 09/03/22 14:10 09/03/22 14:34 09/03/22 15:40 Temperature 97.8 F 97.8 F Pulse Rate 92 92 76 Respiratory Rate 18 18 20 Blood Pressure 170/99 H 183/97 H Pulse Oximetry 97 Oxygen Delivery Method Room Air Room Air 09/03/22 18:29 09/03/22 20:41 Temperature 99.4 F Pulse Rate 77 70 Respiratory Rate 18 Blood Pressure 188/95 H 129/71 Pulse Oximetry 97 97 Oxygen Delivery Method Room Air Room Air BMI result Body Mass Index 20.9 Vital signs have been reviewed and appear to be correct. Blood pressure elevated. Heart rate normal. Respiratory rate normal. Temperature normal. Oxygen saturation normal. Const General: cooperative, healthy appearing and no acute distress Orientation/consciousness: oriented to person, oriented to place, oriented to time and patient oriented x3 Limitations: no limitations HENMT Head: Yes normocephalic and Yes atraumatic Ears: external ears normal General nose exam: Normal external nose present Face and sinus: Yes face symmetric Mouth: oropharynx normal and moist mucous membranes Throat: Yes uvula midline Eyes Pupils: Equal, round and reactive pupils present Neck Neck: Yes normal visual inspection and Yes supple Resp Effort & Inspection: normal respiratory effort and able to speak in complete se ntences Auscultation: clear to auscultation bilaterally Cardio Rate: regular rate Rhythm: regular rhythm Heart sounds: S1 normal heart sound present and S2 normal heart sound present GI Palpation (GI): Soft to palpation and nontender Auscultation: normoactive bowel sounds General: Yes no CVA tenderness Back/Spine/Pelvis Back: no CVA tenderness Skin General skin exam: elasticity normal and turgor normal Neuro General: oriented to person, oriented to place, oriented to time, patient oriented x3, moves all extremities, no focal motor deficits and CN's II-XI intact bilaterally Cranial nerves: Yes Equal, round and reactive pupils present Cognition (Neuro): normal cognition Extrem General: Yes full ROM, Yes no pedal edema and Yes no calf tenderness Psych Mental Status: mental status grossly normal Speech and movement: Normal speech and movement present Affect: normal affect Attitude: cooperative Thought process: Normal thought process present Thought content: Suicidality present, no homicidality, no delusions, No delusions, no hallucinations and Depressive thoughts present Course Course Course Narrative: 15:48 Labs unremarkable, no evidence of STEMI on EKG, patient medically cleared for Care team eval. Will place on physician obs. Reevaluation(s) Reevaluation #1: Patient seen by care team will be a bed search for inpatient psychiatric care Time: 21:22 Medications Administered Discontinued Medications Generic Name Dose Route Start Last Admin Trade Name Adeola PRN Reason Stop Dose Admin Tramadol HCl 50 mg 09/03/22 18:38 09/03/22 19:08 Tramadol Hcl 50 Mg Tablet PO 09/03/22 18:39 50 mg ONCE ONE Administration Medical Decision Making Medical Decision Making MDM Narrative: Patient is a 77-year-old male with history of bladder cancer presenting to the emergency department via EMS on a Section 12 after writing a note expressing suicidal ideation and attempting to ingest a large quantity of pills. On exam patient is pleasant and cooperative, awake, A+Ox3, LS CTA throughout, abd SNT. Labs, EKG, UA, utox, ETOH ordered. Care team eval and safety checks ordered. -18:30, I was informed by the patient's nurse that the patient was ?unresponsive?. When I went to evaluate the patient, patient is awake, alert and oriented, states that he has leg pain. Patient given 50 mg of tramadol. Differential Diagnosis Differential Diagnoses: The differential diagnosis associated with the presentation includes suicidal ideation, depression, acute anxiety Admission/Observation Consideration of admission/observation: Escalation of care including admission/observation considered Lab Data MDM Lab Attestation statement: I reviewed the patient's lab results. 09/03/22 14:44 09/03/22 14:44 Labs: Lab Results 09/03/22 09/03/22 09/03/22 Range/Units 14:44 14:44 14:44 WBC 5.5 (4.8-10.8) X10*3/uL RBC 4.53 L (4.60-5.80) X10*6/uL Hgb 14.6 (14.0-18.0) g/dl Hct 44.3 (42.0-52.0) % MCV 97.8 (80.0-98.0) fL MCH 32.2 (27.0-33.0) pg MCHC 33.0 (31.0-36.0) g/dl RDW 12.3 (11.0-16.0) % Plt Count 155 L (160-400) X10*3/uL MPV 10.2 (9.4-12.4) fL Immature Gran % (Auto) 0.2 (0.0-0.4) % Neut % (Auto) 50.8 (45-73) % Lymph % (Auto) 40.0 (20-40) % [place] % (Auto) 7.3 (2-11) % Eos % (Auto) 1.3 (0-4) % Baso % (Auto) 0.4 (0-2) % Lymph # (Auto) 2.2 (1.2-4.9) X10*3/uL [place] # (Auto) 0.4 (0.1-1.2) X10*3/uL Eos # (Auto) 0.1 (0.0-0.4) X10*3/uL Baso # (Auto) 0.0 (0.0-0.2) X10*3/uL Abs Immat Gran (auto) 0.01 (0.00-0.03) X10*3/uL Absolute Neuts (auto) 2.8 (2.0-8.3) x10*3/uL Absolute Nucleated RBC 0.000 (0.0-0.012) X10*3/uL Nucleated RBC % (auto) 0.0 (0.0-0.2) /100WBC Sodium 142 (135-145) mmol/L Potassium 4.5 (3.3-5.1) mmol/L Chloride 107 (96-108) mmol/L Carbon Dioxide 24 (22-29) mmol/L Anion Gap 16 (12-20) BUN 15 (9-16) mg/dL Creatinine 1.25 (0.5-1.4) mg/dL Estim Creat Clear Calc 31.7 Estimated GFR 56 Random Glucose 175 H (60-115) mg/dL Calcium 9.4 (8.4-10.2) mg/dL Total Bilirubin 0.8 (0.0-1.0) mg/dL AST 39 H (5-37) U/L ALT 21 (0-40) U/L Alkaline Phosphatase 44 (39-117) U/L Total Protein 7.5 (6.5-8.0) g/dL Albumin 4.2 (3.5-5.0) g/dL Urine Color Urine Appearance Urine pH (5.0-9.0) Ur Specific [place] (1.005-1.025) Urine Protein (Neg-Trace) mg/dL Urine Glucose (UA) (Negative) mg/dL Urine Ketones (Negative) mg/dL Urine Blood (Negative) Urine Nitrite (Negative) Ur Leukocyte Esterase (Negative) Urine RBC (0-2) /HPF Urine WBC (0-5) /HPF Ur Squamous Epith Cells (0-2) /HPF Urine Bacteria (None Seen) Hyaline Casts (0-2) /LPF Urine Opiates Screen (Not Detect) Urine Fentanyl Screen (Not Detect) Ur Barbiturates Screen (Not Detect) Ur Phencyclidine Scrn (Not Detect) Ur Amphetamines Screen (Not Detect) U Benzodiazepines Scrn (Not Detect) Urine Cocaine Screen (Not Detect) U Marijuana (THC) Screen (Not Detect) Ethyl Alcohol < 10 mg/dL COVID-19 (ZACHERY) Negative (Negative) COVID-19 Clin Com See Note 09/03/22 09/03/22 Range/Units 14:44 14:44 WBC (4.8-10.8) X10*3/uL RBC (4.60-5.80) X10*6/uL Hgb (14.0-18.0) g/dl Hct (42.0-52.0) % MCV (80.0-98.0) fL MCH (27.0-33.0) pg MCHC (31.0-36.0) g/dl RDW (11.0-16.0) % Plt Count (160-400) X10*3/uL MPV (9.4-12.4) fL Immature Gran % (Auto) (0.0-0.4) % Neut % (Auto) (45-73) % Lymph % (Auto) (20-40) % [place] % (Auto) (2-11) % Eos % (Auto) (0-4) % Baso % (Auto) (0-2) % Lymph # (Auto) (1.2-4.9) X10*3/uL [place] # (Auto) (0.1-1.2) X10*3/uL Eos # (Auto) (0.0-0.4) X10*3/uL Baso # (Auto) (0.0-0.2) X10*3/uL Abs Immat Gran (auto) (0.00-0.03) X10*3/uL Absolute Neuts (auto) (2.0-8.3) x10*3/uL Absolute Nucleated RBC (0.0-0.012) X10*3/uL Nucleated RBC % (auto) (0.0-0.2) /100WBC Sodium (135-145) mmol/L Potassium (3.3-5.1) mmol/L Chloride (96-108) mmol/L Carbon Dioxide (22-29) mmol/L Anion Gap (12-20) BUN (9-16) mg/dL Creatinine (0.5-1.4) mg/dL Estim Creat Clear Calc Estimated GFR Random Glucose (60-115) mg/dL Calcium (8.4-10.2) mg/dL Total Bilirubin (0.0-1.0) mg/dL AST (5-37) U/L ALT (0-40) U/L Alkaline Phosphatase (39-117) U/L Total Protein (6.5-8.0) g/dL Albumin (3.5-5.0) g/dL Urine Color Yellow Urine Appearance Hazy Urine pH 5.5 (5.0-9.0) Ur Specific [place] <= 1.005 (1.005-1.025) Urine Protein Negative (Neg-Trace) mg/dL Urine Glucose (UA) Negative (Negative) mg/dL Urine Ketones Negative (Negative) mg/dL Urine Blood Negative (Negative) Urine Nitrite Negative (Negative) Ur Leukocyte Esterase Large (3+) H (Negative) Urine RBC 0-2 (0-2) /HPF Urine WBC 21-50 H (0-5) /HPF Ur Squamous Epith Cells 0-2 (0-2) /HPF Urine Bacteria None Seen (None Seen) Hyaline Casts 3-5 (0-2) /LPF Urine Opiates Screen Not Detected (Not Detect) Urine Fentanyl Screen Not Detected (Not Detect) Ur Barbiturates Screen Not Detected (Not Detect) Ur Phencyclidine Scrn Not Detected (Not Detect) Ur Amphetamines Screen Not Detected (Not Detect) U Benzodiazepines Scrn Not Detected (Not Detect) Urine Cocaine Screen Not Detected (Not Detect) U Marijuana (THC) Screen Not Detected (Not Detect) Ethyl Alcohol mg/dL COVID-19 (ZACHERY) (Negative) COVID-19 Clin Com External Record Review External record reviewed: Inpatient record, Office record and Outpatient record Discharge Plan Discharge Clinical Impression: Suicidal ideation Patient Disposition: Still a Patient Prescriptions: No Action amlodipine 5 mg Tablet 5 mg PO DAILY Rx Instructions: confirmed with [facility] last filled 08/17/22 mirtazapine 45 mg tablet 45 mg PO BEDTIME lorazepam 1 mg tablet 1 mg PO DAILY PRN (Reason: Anxiety) Rx Instructions: last filled 08/26/22 lisinopril 20 mg tablet 20 mg PO DAILY Rx Instructions: last filled 08/26/22 Interventions: Wolfe-Suicide Risk Severity Scale Last Done: 09/03/22 15:58
[2022-09-03 15:27] LABS: Alanine Aminotransferase 21 U/L (0-40); Albumin Level 4.2 g/dL (3.5-5.0); Alkaline Phosphatase 44 U/L (39-117); Anion Gap 16 (12-20); Aspartate Amino Transferase 39 U/L (5-37); Bilirubin Total 0.8 mg/dL (0.0-1.0); Blood Urea Nitrogen 15 mg/dL (9-16); Calcium 9.4 mg/dL (8.4-10.2); Carbon Dioxide 24 mmol/L (22-29); Chloride 107 mmol/L (96-108); Creatinine Clr Calc Pharmacy 31.7; Estimated Glomerular Filt Rate 56; Ethanol < 10 mg/dL; Glucose Random 175 mg/dL (60-115); Potassium 4.5 mmol/L (3.3-5.1); Sodium 142 mmol/L (135-145); Total Protein 7.5 g/dL (6.5-8.0)
[2022-09-03 15:40] VITALS: BP 183/97; PULSE 76; RESP 20
[2022-09-03 18:29] VITALS: BP 188/95; PULSE 77; O2SAT 97
--- NOTE | 2022-09-03 18:30 | PC.NURSE ---
Pt with increased BP. C/O BLL pain. Seeming to stare blankly for several minutes. Possible catatonia. MD notified. Pt back to bed. Extra pillows for legs an elevated head. Warm blankets donned. MD in to evaluate.
[2022-09-03] MEDS: traMADoL HCL 50 MG TABLET PO (19:08)
--- NOTE | 2022-09-03 19:12 | PC.NURSE ---
Report received from JACQUI Lopez Pt is resting comfortably on bed, no apparent distress. Pt medicated per MAR. Pt offers no complaints at this time. Respirations even and unlabored, skin pwd
[2022-09-03 20:41] VITALS: BP 129/71; PULSE 70; RESP 18; TEMP 37.4; O2SAT 97
--- NOTE | 2022-09-04 03:29 | PC.NURSE ---
pt has been sleeping throughout night thus far, respirations even and unlabored, skin pwd, no apparent distress continue plan of care for inpatient admission bed search
--- NOTE | 2022-09-04 05:27 | PC.NURSE ---
pt woke up, requesting hot pack for hand (reports that heat helps with his trigger finger). Pt walking with Mariya, MHT to bathroom at this time. Pt calm and cooperative
[2022-09-04 05:32] VITALS: BP 135/80; PULSE 68; RESP 16; TEMP 36.4; O2SAT 98
--- NOTE | 2022-09-04 07:16 | PC.NURSE ---
patient appears to remain asleep at present respirations are even and unlabored patient appears in no distress
--- NOTE | 2022-09-04 14:20 | PC.NURSE ---
Nurse to Nurse given to S1 RN
[2022-09-04 16:28] VITALS: BP 136/80; PULSE 68; RESP 18; TEMP 36.4; O2SAT 98
--- NOTE | 2022-09-04 18:08 | PC.ADMIT ---
Hesham arrived on unit at 4:15pm and placed on 5minute checks, pt with diagnosis of major depressive disorder with suicide attempt by intentionally overdosing on medications, pt wrote a suicide note saying goodbye to his family.. Pt has history of 4 prior suicide attempts. Pt pleasant and cooperative during admission process, signed a CV, oriented to unit, presenting baseline in functioning, Pt denies any physical complaints at this time. 5 minute safety checks initiated.
[2022-09-04] MEDS: Mirtazapine 15 MG TABLET 45 MG PO (20:53)
[2022-09-04] MEDS: traZODone HCL 50 MG TABLET PO (20:54)
[2022-09-04 22:27] VITALS: BMI 24.4
[2022-09-04 22:28] VITALS: BP 169/79; PULSE 68; RESP 18; TEMP 36.6; O2SAT 96
[2022-09-05 08:00] VITALS: BP 148/72; PULSE 60; RESP 16; TEMP 36.6; O2SAT 96
[2022-09-05] MEDS: lisinopriL 20 MG TABLET PO (08:03)
[2022-09-05] MEDS: amLODIPine Besylate 5 MG TABLET PO (08:03)
[2022-09-05 08:35] LABS: Alanine Aminotransferase 18 U/L (0-40); Albumin Level 4.3 g/dL (3.5-5.0); Alkaline Phosphatase 45 U/L (39-117); Anion Gap 13 (12-20); Aspartate Amino Transferase 28 U/L (5-37); Bilirubin Total 0.8 mg/dL (0.0-1.0); Blood Urea Nitrogen 18 mg/dL (9-16); Calcium 9.8 mg/dL (8.4-10.2); Carbon Dioxide 26 mmol/L (22-29); Chloride 106 mmol/L (96-108); Cholesterol 208 mg/dL; Creatinine Clr Calc Pharmacy 33.1; Estimated Glomerular Filt Rate 59; Glucose Fasting 145 mg/dL (60-99); HDL Cholesterol 50 mg/dL; LDL Cholesterol Calculated 132 mg/dl; Potassium 4.7 mmol/L (3.3-5.1); Sodium 140 mmol/L (135-145); Total Protein 7.7 g/dL (6.5-8.0); Triglycerides 133 mg/dL
--- NOTE | 2022-09-05 08:37 | P.HPPS_ITS ---
HPI Date of Service: 09/05/22 Chief Complaint: suicide attempt Sources of Information: patient interviewed, chart reviewed and crisis/core team assessment reviewed HPI Subjective Notes: Gordon Warning (given and shows understanding) and Conditional Voluntary Narrative: Mr. Delong is a 77 year-old male with hx of MDD. He was brought via EMS to [facility] ED after son found pt with handful of melatonin, suicide note and photo of his family. Pt has hx of 4 prior suicide attempts and prior inpatient admission. In the ED- utox is negative. On the unit, pt presents as calm. He reports I would never do anything like that again. He denies having thoughts of wanting to hurt himself or others. He does report some conflict with but minimizes events leading to this admission. Pt denies increase in symptoms of depression. He reports sleeping and eating well. He reports taking his medications as prescribed and reports they have been very helpful. He denies hx of visual or auditory hallucinations. He asks for a short stay as he states I have to pay bills, and be with my and grandchildren. Pt does not seem to acknowledge that it was son who found him and not that he asked for help. He adamantly denies any plan or intent to harm himself or others. Per crisis, son reported last suicide attempt was last year when he tried to h ang himself. Son reports at the time they did not seek professional help. Pt has had 3 prior psychiatric admission from 1998 to 2001 for suicidal ideation. Past Psychiatric History: Inpatient: [facility] 01/1999; 11/1999; 01/2001 OP: [facility]. Prescriber Jaye Sauceda Past medication trials: remeron HX of suicide attempts: pt reports 4 prior suicide attempts. He did not elaborate on dates or circumstances, but it appears last one was last year when son found him trying to hang himself. Medical Evaluation Reviewed: Yes 09/03- CBC unremarkable. CMP BUN 18, Cr 1,20, est. creatinine clearance 33.1 [facility] Medical History Asthma Depression Diabetes H/O primary malignant neoplasm of urinary bladder High cholesterol HTN (hypertension) Family History: denies Social History: Pt originally from [place]. He has been in [facility] for more than 30 years. He currently lives with and his son. Substance History: None Trauma History: not disclosed Diagnostics Vital Signs (24Hr): Vital Signs - 24 hr 09/04/22 16:28 09/04/22 22:28 Temperature 97.5 F 98 F Pulse Rate 68 68 Respiratory Rate 18 18 Blood Pressure 136/80 169/79 H Pulse Oximetry 98 96 Oxygen Delivery Method Room Air Room Air BMI result Body Mass Index 24.4 Labs 09/03/22 14:44 09/05/22 07:53 Labs: Laboratory Results - last 48 hr 09/03/22 09/03/22 09/03/22 14:44 14:44 14:44 WBC 5.5 RBC 4.53 L Hgb 14.6 Hct 44.3 MCV 97.8 MCH 32.2 MCHC 33.0 RDW 12.3 Plt Count 155 L MPV 10.2 Immature Gran % (Auto) 0.2 Neut % (Auto) 50.8 Lymph % (Auto) 40.0 [place] % (Auto) 7.3 Eos % (Auto) 1.3 Baso % (Auto) 0.4 Lymph # (Auto) 2.2 [place] # (Auto) 0.4 Eos # (Auto) 0.1 Baso # (Auto) 0.0 Abs Immat Gran (auto) 0.01 Absolute Neuts (auto) 2.8 Absolute Nucleated RBC 0.000 Nucleated RBC % (auto) 0.0 Sodium 142 Potassium 4.5 Chloride 107 Carbon Dioxide 24 Anion Gap 16 BUN 15 Creatinine 1.25 Estim Creat Clear Calc 31.7 Estimated GFR 56 Random Glucose 175 H Fasting Glucose Calcium 9.4 Total Bilirubin 0.8 AST 39 H ALT 21 Alkaline Phosphatase 44 Total Protein 7.5 Albumin 4.2 Triglycerides Cholesterol LDL Cholesterol, Calc HDL Cholesterol Urine Color Urine Appearance Urine pH Ur Specific [place] Urine Protein Urine Glucose (UA) Urine Ketones Urine Blood Urine Nitrite Ur Leukocyte Esterase Urine RBC Urine WBC Ur Squamous Epith Cells Urine Bacteria Hyaline Casts Urine Opiates Screen Urine Fentanyl Screen Ur Barbiturates Screen Ur Phencyclidine Scrn Ur Amphetamines Screen U Benzodiazepines Scrn Urine Cocaine Screen U Marijuana (THC) Screen Ethyl Alcohol < 10 COVID-19 (ZACHERY) Negative COVID-19 Clin Com See Note 09/03/22 09/03/22 09/05/22 14:44 14:44 07:53 WBC RBC Hgb Hct MCV MCH MCHC RDW Plt Count MPV Immature Gran % (Auto) Neut % (Auto) Lymph % (Auto) [place] % (Auto) Eos % (Auto) Baso % (Auto) Lymph # (Auto) [place] # (Auto) Eos # (Auto) Baso # (Auto) Abs Immat Gran (auto) Absolute Neuts (auto) Absolute Nucleated RBC Nucleated RBC % (auto) Sodium 140 Potassium 4.7 Chloride 106 Carbon Dioxide 26 Anion Gap 13 BUN 18 H Creatinine 1.20 Estim Creat Clear Calc 33.1 Estimated GFR 59 Random Glucose Fasting Glucose 145 H Calcium 9.8 Total Bilirubin 0.8 AST 28 ALT 18 Alkaline Phosphatase 45 Total Protein 7.7 Albumin 4.3 Triglycerides 133 Cholesterol 208 LDL Cholesterol, Calc 132 HDL Cholesterol 50 Urine Color Yellow Urine Appearance Hazy Urine pH 5.5 Ur Specific [place] <= 1.005 Urine Protein Negative Urine Glucose (UA) Negative Urine Ketones Negative Urine Blood Negative Urine Nitrite Negative Ur Leukocyte Esterase Large (3+) H Urine RBC 0-2 Urine WBC 21-50 H Ur Squamous Epith Cells 0-2 Urine Bacteria None Seen Hyaline Casts 3-5 Urine Opiates Screen Not Detected Urine Fentanyl Screen Not Detected Ur Barbiturates Screen Not Detected Ur Phencyclidine Scrn Not Detected Ur Amphetamines Screen Not Detected U Benzodiazepines Scrn Not Detected Urine Cocaine Screen Not Detected U Marijuana (THC) Screen Not Detected Ethyl Alcohol COVID-19 (ZACHERY) COVID-19 Clin Com Meds/Allergies Meds Home Medications Medication Instructions Recorded Confirmed Type lisinopril 20 mg tablet 20 mg PO DAILY 12/21/21 09/03/22 History lorazepam 1 mg tablet 1 mg PO DAILY PRN Anxiety 12/21/21 09/03/22 History mirtazapine 45 mg tablet 45 mg PO BEDTIME 12/21/21 09/03/22 History amlodipine 5 mg tablet 5 mg PO DAILY 09/03/22 09/03/22 History aspirin 81 mg tablet,delayed 81 mg PO QAM 09/04/22 09/04/22 History release Allergies Allergies Allergy/AdvReac Type Severity Reaction Status Date / Time ciprofloxacin [Ciprofloxacin] Allergy Severe RASH AND Verified 09/03/22 15:47 ITCHING ALL OVER Mental Status Exam Mental Status Exam Narrative: Appearance: thin, casually clothing, fair hygiene, in NAD Behavior: superficially cooperative Psychomotor: no agitation or retardation noted Speech: clear, normal rate/rhythm/volume, spontaneous TP: goal oriented- looking to return home soon TC: denies suicidal ideation or plan or intent, wanting to go home, no signs of psychosis or delusions Mood: good Affect: congruent SI: denies HI: denies VH/AH: none Delusions: none Insight/judgment: poor x 2. Memory/cog: alert, oriented x 3. not formally tested. Assessment & Plan Assessment & Plan (1) MDD (major depressive disorder), recurrent episode, moderate: Status: Acute Code(s): F33.1 - Major depressive disorder, recurrent, moderate Plan Mr. Delong is a 77 year-old male with hx of MDD, question of cluster B traits, who was brought via EMS after son found with pt with handful of melatonin, peacock icide note and a family picture. Pt has hx of multiple suicide attempts, most that have been interrupted by his family. On the unit, pt minimizes events leading to this admission. He also requested to be discharged soon as he reports he has things to do at home such as paying bills and being with his . He minimizes concern of son given multiple attempts, stating I won't do anything like this again. We discussed risks, benefits and alternative treatment options. Pt agrees to continue remeron. He declines further adjustment to medications stating that he has been doing well. PLAN 1. Admit to S1, CV, 15 minutes checks for safety 2. continue current medications 3. obtain collateral information 4. Aftercare planning. Patient educated on: diagnosis Reason for continued inpatient stay Substantial Risk for: harm to self Statement Statement: I have reviewed the history and physical and performed a pertinent examination on my patient. No changes have occurred unless specified. If the History and Physical was not performed prior to admission, the Hospitalist's service will be consulted for completing the admission physical. Time Spent With Patient Time: Total time managing care of this patient today ____ minutes.
[2022-09-05 09:32] LABS: Folate 14.8 ng/mL (> or = 4.0); Vitamin B12 339 pg/mL (200-900)
[2022-09-05 18:00] VITALS: BP 113/59; PULSE 68; RESP 17; TEMP 36.1; O2SAT 96
[2022-09-05] MEDS: Mirtazapine 15 MG TABLET 45 MG PO (20:42)
[2022-09-06 06:00] VITALS: BP 145/89; PULSE 75; RESP 18; TEMP 36.1; O2SAT 97
[2022-09-06] MEDS: amLODIPine Besylate 5 MG TABLET PO (08:28)
[2022-09-06] MEDS: lisinopriL 20 MG TABLET PO (08:28)
[2022-09-06] MEDS: Aspirin Enteric Coated 81 MG TABLET.DR PO (08:45)
--- NOTE | 2022-09-06 16:59 | HO.PSYCHPN ---
Subjective Subjective Date of Service: 09/06/22 Reason For Visit: suicide attempt Subjective Notes: Conditional Voluntary Interim History: Pt continues to denied suicidal or homicidal ideation. He continues to report that he wants to go home. He reports he misses his and has to pay bills. Per nursing, pt slept through the night. No behavioral concerns. Pt minimizes and minimal insight into events leading to this admission. Medication Compliance: Yes Side effects from medications: No Attending Groups: Intermittent Review of Systems Review of Systems Pt denies chest pain, SOB. No loose stool or constipation. No abdominal pain. Yes all other systems are reviewed and are negative Constitutional: Reports as per HPI Mental Status Exam Mental Status Exam Narrative: Appearance: thin, casually clothing, fair hygiene, in NAD Behavior: superficially cooperative Psychomotor: no agitation or retardation noted Speech: clear, normal rate/rhythm/volume, spontaneous TP: goal oriented- looking to return home soon TC: denies suicidal ideation or plan or intent, wanting to go home, no signs of psychosis or delusions Mood: good Affect: congruent SI: denies HI: denies VH/AH: none Delusions: none Insight/judgment: poor x 2. Memory/cog: alert, oriented x 3. not formally tested. Diagnostics Vital Signs (24Hr): Vital Signs - 24 hr 09/05/22 18:00 09/06/22 06:00 Temperature 97.0 F 96.9 F Pulse Rate 68 75 Respiratory Rate 17 18 Blood Pressure 113/59 L 145/89 H Pulse Oximetry 96 97 Oxygen Delivery Method Room Air Room Air BMI result Body Mass Index 24.4 Labs 09/03/22 14:44 09/05/22 07:53 Labs: Laboratory Results - last 48 hr 09/05/22 07:53 Sodium 140 Potassium 4.7 Chloride 106 Carbon Dioxide 26 Anion Gap 13 BUN 18 H Creatinine 1.20 Estim Creat Clear Calc 33.1 Estimated GFR 59 Fasting Glucose 145 H Calcium 9.8 Total Bilirubin 0.8 AST 28 ALT 18 Alkaline Phosphatase 45 Total Protein 7.7 Albumin 4.3 Triglycerides 133 Cholesterol 208 LDL Cholesterol, Calc 132 HDL Cholesterol 50 Vitamin B12 339 Folate 14.8 Medications Medications Current Medications Acetaminophen (Acetaminophen 325 Mg Tablet) 650 mg PO Q6H PRN PRN Reason: Headache/Pain Mild Scale (1-3) Al Hydroxide/Mg Hydroxide (Magnesium Hydrox/Alum Hydrox 30 Ml Oral.Susp) 30 ml PO Q6H PRN PRN Reason: Heartburn/Nausea Amlodipine Besylate (Amlodipine Besylate 5 Mg Tablet) 5 mg PO DAILY PRISCILLA; Protocol Last Admin: 09/06/22 08:28 Dose: 5 mg Aspirin (Aspirin Enteric Coated 81 Mg Tablet.Dr) 81 mg PO DAILY PRISCILLA Last Admin: 09/06/22 08:45 Dose: 81 mg Hydroxyzine HCl (Hydroxyzine Hcl 25 Mg Tablet) 25 mg PO Q6H PRN PRN Reason: Anxiety Lisinopril (Lisinopril 20 Mg Tablet) 20 mg PO DAILY PRISCILLA; Protocol Last Admin: 09/06/22 08:28 Dose: 20 mg Lorazepam (Lorazepam 1 Mg Tablet) 1 mg PO DAILY PRN PRN Reason: Anxiety Magnesium Hydroxide (Milk Of Magnesia 30 Ml Oral.Susp) 30 ml PO DAILY PRN PRN Reason: Constipation Mirtazapine (Mirtazapine 15 Mg Tablet) 45 mg PO BEDTIME PRISCILLA Last Admin: 09/05/22 20:42 Dose: 45 mg Trazodone HCl (Trazodone Hcl 50 Mg Tablet) 50 mg PO BEDTIME MRX1 PRN PRN Reason: Insomnia Last Admin: 09/04/22 20:54 Dose: 50 mg Allergies Allergies Allergy/AdvReac Type Severity Reaction Status Date / Time ciprofloxacin [Ciprofloxacin] Allergy Severe RASH AND Verified 09/03/22 15:47 ITCHING ALL OVER Assessment & Plan Assessment & Plan (1) MDD (major depressive disorder), recurrent episode, moderate: Status: Acute Code(s): F33.1 - Major depressive disorder, recurrent, moderate Plan Mr. Delong is a 77 year-old male with hx of MDD, question of cluster B traits, who was brought via EMS after son found with pt with handful of melatonin, suicide note and a family picture. Pt has hx of multiple suicide attempts, most that have been interrupted by his family. On the unit, pt minimizes events leading to this admission. He also requested to be discharged soon as he reports he has things to do at home such as paying bills and being with his . He minimizes concern of son given multiple attempts, stating I won't do anything like this again. We discussed risks, benefits and alternative treatment options. Pt agrees to continue remeron. He declines further adjustment to medications stating that he has been doing well. PLAN 09/06 continue tx. Reason for continued inpatient stay Substantial Risk for: harm to self Time Spent With Patient Time: Total time managing care of this patient today ____ minutes.
[2022-09-06 19:40] VITALS: BP 131/61; PULSE 71; RESP 18; TEMP 37.2; O2SAT 98
[2022-09-06] MEDS: Mirtazapine 15 MG TABLET 45 MG PO (20:01)
[2022-09-07 08:00] VITALS: BP 136/66; PULSE 71; RESP 18; TEMP 36.7; O2SAT 98
[2022-09-07] MEDS: lisinopriL 20 MG TABLET PO (08:22)
[2022-09-07] MEDS: amLODIPine Besylate 5 MG TABLET PO (08:24)
[2022-09-07] MEDS: Aspirin Enteric Coated 81 MG TABLET.DR PO (08:24)
--- NOTE | 2022-09-07 11:14 | HO.PSYCHPN ---
Subjective Subjective Date of Service: 09/07/22 Reason For Visit: suicide attempt Subjective Notes: Conditional Voluntary Interim History: Pt continues to denied any plan or intent to harm himself. Pt reports feeling sad about being here on the unit as he misses his family and his great granddaughter birthday is coming up. Pt sleeping and eating well. No behavioral concerns. No psychosis. Collateral from son who denies any safety concerns at this time and agrees with dc tomorrow. Medication Compliance: Yes Side effects from medications: No Review of Systems Review of Systems Pt denies chest pain, SOB. No loose stool or constipation. No abdominal pain. Yes all other systems are reviewed and are negative Constitutional: Reports as per [facility] Mental Status Exam Mental Status Exam Narrative: Appearance: thin, casually clothing, fair hygiene, in NAD Behavior: superficially cooperative Psychomotor: no agitation or retardation noted Speech: clear, normal rate/rhythm/volume, spontaneous TP: goal oriented- looking to return home soon TC: denies suicidal ideation or plan or intent, wanting to go home, no signs of psychosis or delusions Mood: good Affect: congruent SI: denies HI: denies VH/AH: none Delusions: none Insight/judgment: poor x 2. Memory/cog: alert, oriented x 3. not formally tested. Diagnostics Vital Signs (24Hr): Vital Signs - 24 hr 09/06/22 19:40 09/07/22 08:00 Temperature 98.9 F 98.0 F Pulse Rate 71 71 Respiratory Rate 18 18 Blood Pressure 131/61 136/66 Pulse Oximetry 98 98 Oxygen Delivery Method Room Air Room Air BMI result Body Mass Index 24.4 Labs 09/03/22 14:44 09/05/22 07:53 Medications Medications Current Medications Acetaminophen (Acetaminophen 325 Mg Tablet) 650 mg PO Q6H PRN PRN Reason: Headache/Pain Mild Scale (1-3) Al Hydroxide/Mg Hydroxide (Magnesium Hydrox/Alum Hydrox 30 Ml Oral.Susp) 30 ml PO Q6H PRN PRN Reason: Heartburn/Nausea Amlodipine Besylate (Amlodipine Besylate 5 Mg Tablet) 5 mg PO DAILY PRISCILLA; Protocol Last Admin: 09/07/22 08:24 Dose: 5 mg Aspirin (Aspirin Enteric Coated 81 Mg Tablet.) 81 mg PO DAILY [facility] Last Admin: 09/07/22 08:24 Dose: 81 mg Hydroxyzine HCl (Hydroxyzine Hcl 25 Mg Tablet) 25 mg PO Q6H PRN PRN Reason: Anxiety Lisinopril (Lisinopril 20 Mg Tablet) 20 mg PO DAILY PRISCILLA; Protocol Last Admin: 09/07/22 08:22 Dose: 20 mg Lorazepam (Lorazepam 1 Mg Tablet) 1 mg PO DAILY PRN PRN Reason: Anxiety Magnesium Hydroxide (Milk Of Magnesia 30 Ml Oral.Susp) 30 ml PO DAILY PRN PRN Reason: Constipation Mirtazapine (Mirtazapine 15 Mg Tablet) 45 mg PO BEDTIME PRISCILLA Last Admin: 09/06/22 20:01 Dose: 45 mg Trazodone HCl (Trazodone Hcl 50 Mg Tablet) 50 mg PO BEDTIME MRX1 PRN PRN Reason: Insomnia Last Admin: 09/04/22 20:54 Dose: 50 mg Allergies Allergies Allergy/AdvReac Type Severity Reaction Status Date / Time ciprofloxacin [Ciprofloxacin] Allergy Severe RASH AND Verified 09/03/22 15:47 ITCHING ALL OVER Assessment & Plan Assessment & Plan (1) MDD (major depressive disorder), recurrent episode, moderate: Status: Acute Code(s): F33.1 - Major depressive disorder, recurrent, moderate Plan Mr. Delong is a 77 year-old male with hx of MDD, question of cluster B traits, who was brought via EMS after son found with pt with handful of melatonin, suicide note and a family picture. Pt has hx of multiple suicide attempts, most that have been interrupted by his family. On the unit, pt minimizes events leading to this admission. He also requested to be discharged soon as he reports he has things to do at home such as paying bills and being with his . He minimizes concern of son given multiple attempts, stating I won't do anything like this again. We discussed risks, benefits and alternative treatment options. Pt agrees to continue remeron. He declines further adjustment to medications stating that he has been doing well. PLAN 09/06 continue tx. 09/07 continue tx. Patient educated on: diagnosis Reason for continued inpatient stay Substantial Risk for: stable for discharge Time Spent With Patient Time: Total time managing care of this patient today ____ minutes.
[2022-09-07 18:00] VITALS: BP 127/60; PULSE 68; RESP 18; TEMP 36.4; O2SAT 95
[2022-09-07] MEDS: Mirtazapine 15 MG TABLET 45 MG PO (20:34)
[2022-09-08] MEDS: traZODone HCL 50 MG TABLET PO (00:13)
[2022-09-08] MEDS: Acetaminophen 325 MG TABLET 650 MG PO (00:13)
[2022-09-08] MEDS: hydrOXYzine HCL 25 MG TABLET PO (00:15)
[2022-09-08 08:16] VITALS: BP 133/65; PULSE 60; RESP 18; TEMP 36.4; O2SAT 97
[2022-09-08] MEDS: Aspirin Enteric Coated 81 MG TABLET.DR PO (09:19)
[2022-09-08] MEDS: lisinopriL 20 MG TABLET PO (09:19)
[2022-09-08] MEDS: amLODIPine Besylate 5 MG TABLET PO (09:19)
--- NOTE | 2022-09-08 09:33 | PM.PSYDC ---
DS: Providers Provider Date of Service: 09/08/22 Date of admission: 09/04/22 15:30 Primary care physician: Unknown Physician DS: Diagnosis Discharge Diagnosis (1) MDD (major depressive disorder), recurrent episode, moderate: Status: Acute DS: Medications Discharge Medications Home Medications: Home Medications Medication Instructions Recorded Confirmed lorazepam 1 mg tablet 1 mg PO DAILY PRN Anxiety 12/21/21 09/03/22 Previous Rx's Medication Instructions Recorded amlodipine 5 mg tablet 5 mg PO DAILY #30 tabs 09/08/22 aspirin 81 mg tablet,delayed 81 mg PO DAILY #30 tabs 09/08/22 release lisinopril 20 mg tablet 20 mg PO DAILY #30 tabs 09/08/22 mirtazapine 45 mg tablet 45 mg PO BEDTIME #30 tabs 09/08/22 Mental Status Exam Mental Status Exam Narrative: Appearance: thin, casually clothing, fair hygiene, in NAD Behavior: superficially cooperative Psychomotor: no agitation or retardation noted Speech: clear, normal rate/rhythm/volume, spontaneous TP: goal oriented- looking to return home soon TC: denies suicidal ideation or plan or intent, wanting to go home, no signs of psychosis or delusions Mood: good Affect: congruent SI: denies HI: denies VH/AH: none Delusions: none Insight/judgment: poor x 2. Memory/cog: alert, oriented x 3. not formally tested. Data Data Completed and Pending Completed studies during hospitalization [Text1]: 09/03/22 09/03/22 09/03/22 14:44 14:44 14:44 WBC 5.5 RBC 4.53 L Hgb 14.6 Hct 44.3 MCV 97.8 MCH 32.2 MCHC 33.0 RDW 12.3 Plt Count 155 L MPV 10.2 Immature Gran % (Auto) 0.2 Neut % (Auto) 50.8 Lymph % (Auto) 40.0 [place] % (Auto) 7.3 Eos % (Auto) 1.3 Baso % (Auto) 0.4 Lymph # (Auto) 2.2 [place] # (Auto) 0.4 Eos # (Auto) 0.1 Baso # (Auto) 0.0 Abs Immat Gran (auto) 0.01 Absolute Neuts (auto) 2.8 Absolute Nucleated RBC 0.000 Nucleated RBC % (auto) 0.0 Sodium 142 Potassium 4.5 Chloride 107 Carbon Dioxide 24 Anion Gap 16 BUN 15 Creatinine 1.25 Estim Creat Clear Calc 31.7 Estimated GFR 56 Random Glucose 175 H Fasting Glucose Calcium 9.4 Total Bilirubin 0.8 AST 39 H ALT 21 Alkaline Phosphatase 44 Total Protein 7.5 Albumin 4.2 Triglycerides Cholesterol LDL Cholesterol, Calc HDL Cholesterol Vitamin B12 Folate Urine Color Urine Appearance Urine pH Ur Specific [place] Urine Protein Urine Glucose (UA) Urine Ketones Urine Blood Urine Nitrite Ur Leukocyte Esterase Urine RBC Urine WBC Ur Squamous Epith Cells Urine Bacteria Hyaline Casts Urine Opiates Screen Urine Fentanyl Screen Ur Barbiturates Screen Ur Phencyclidine Scrn Ur Amphetamines Screen U Benzodiazepines Scrn Urine Cocaine Screen U Marijuana (THC) Screen Ethyl Alcohol < 10 COVID-19 (ZACHERY) Negative COVID-19 Clin Com See Note 09/03/22 09/03/22 09/05/22 14:44 14:44 07:53 WBC RBC Hgb Hct MCV MCH MCHC RDW Plt Count MPV Immature Gran % (Auto) Neut % (Auto) Lymph % (Auto) [place] % (Auto) Eos % (Auto) Baso % (Auto) Lymph # (Auto) [place] # (Auto) Eos # (Auto) Baso # (Auto) Abs Immat Gran (auto) Absolute Neuts (auto) Absolute Nucleated RBC Nucleated RBC % (auto) Sodium 140 Potassium 4.7 Chloride 106 Carbon Dioxide 26 Anion Gap 13 BUN 18 H Creatinine 1.20 Estim Creat Clear Calc 33.1 Estimated GFR 59 Random Glucose Fasting Glucose 145 H Calcium 9.8 Total Bilirubin 0.8 AST 28 ALT 18 Alkaline Phosphatase 45 Total Protein 7.7 Albumin 4.3 Triglycerides 133 Cholesterol 208 LDL Cholesterol, Calc 132 HDL Cholesterol 50 Vitamin B12 339 Folate 14.8 Urine Color Yellow Urine Appearance Hazy Urine pH 5.5 Ur Specific [place] <= 1.005 Urine Protein Negative Urine Glucose (UA) Negative Urine Ketones Negative Urine Blood Negative Urine Nitrite Negative Ur Leukocyte Esterase Large (3+) H Urine RBC 0-2 Urine WBC 21-50 H Ur Squamous Epith Cells 0-2 Urine Bacteria None Seen Hyaline Casts 3-5 Urine Opiates Screen Not Detected Urine Fentanyl Screen Not Detected Ur Barbiturates Screen Not Detected Ur Phencyclidine Scrn Not Detected Ur Amphetamines Screen Not Detected U Benzodiazepines Scrn Not Detected Urine Cocaine Screen Not Detected U Marijuana (THC) Screen Not Detected Ethyl Alcohol COVID-19 (ZACHERY) COVID-19 Clin Com 09/03/22 Unknown Urine clean catch - Urine suárez top Urine Culture - Final Staphylococcus haemolyticus Viridans streptococcus group DS: Summary Hospital Course Hospital Course: Subjective Notes: Gordon Warning (given and shows understanding) and Conditional Voluntary Narrative: Mr. Delong is a 77 year-old male with hx of MDD. He was brought via EMS to [facility] after son found pt with handful of melatonin, suicide note and photo of his family. Pt has hx of 4 prior suicide attempts and prior inpatient admission. In the ED- utox is negative. On the unit, pt presents as calm. He reports I would never do anything like that again. He denies having thoughts of wanting to hurt himself or others. He does report some conflict with but minimizes events leading to this admission. Pt denies increase in symptoms of depression. He reports sleeping and eating well. He reports taking his medications as prescribed and reports they have been very helpful. He denies hx of visual or auditory hallucinations. He asks for a short stay as he states I have to pay bills, and be with my and grandchildren. Pt does not seem to acknowledge that it was son who found him and not that he asked for help. He adamantly denies any plan or intent to harm himself or others. Per crisis, son reported last suicide attempt was last year when he tried to hang himself. Son reports at the time they did not seek professional help. Pt has had 3 prior psychiatric admission from 1998 to 2001 for suicidal ideation. Past Psychiatric History: Inpatient: 01/1999; 11/1999; 01/2001 OP: [facility]. Prescriber Jaye Sauceda ? Past medication trials: remeron ? HX of suicide attempts: pt reports 4 prior suicide attempts. He did not elaborate on dates or circumstances, but it appears last one was last year when son found him trying to hang himself. Medical Evaluation Reviewed: Yes 09/03- CBC unremarkable. CMP BUN 18, Cr 1,20, est. creatinine clearance 33.1 HOSPITAL COURSE On the unit, pt was admitted on and CV. Pt has denied suicidal ideation any plan or intent to harm himself. Pt reported he had argument with because he lost his concepcion for the 4th time. He asked to be discharged soon as he did not think he needed to be in the hospital. We discussed risks, benefits and alternative treatment, he agreed to continue remeron for depression. He was visible on the unit and social with select peers. He was taking medications as prescribed. No signs of psychosis. Collateral information gathered from his son who reports pt typically when frustrated makes suicidal statement at times with letter. Son denies any actual harm throughout his life. CHERYLE Martino contacted his therapist who was surprised about being suicidality as she reports she has been working with him for past 2 years and recently he has been stable with no signs of depression. However, therapist agree to see patient for next several months weekly to monitor his mood. There were no incidences of disruptive behaviors nor use of restraints. Status at Discharge Cognitive/behavioral status at discharge: pt with brighter, non labile affect. No SI/HI. No psychosis or delusions. Pt sleeping and eating well. Future oriented looking forward to be discharged and see family. Functional status at discharge: independent ambulation Overall status at discharge: patient is progressing back to baseline Time Spent with Patient Time attestation: Total time managing care of this patient today __30__ minutes. Time spent: Greater than 30 minutes Discharge Plan Discharge Anticipated Discharge Date/Time: 09/08/22 09:25 Patient Disposition: Home, Self-Care Discharge Diagnosis: MDD, recurrent, moderate Referrals: Dr. Genia Mello -- PCP [Other] - 09/12/22 10:30 am (Appointment: 09/12/2022 @ 10:30am ) Jaye Sauceda - Prescriber - [facility] [Other] - 09/26/22 2:40 pm (Appointment: 09/26/22 @ 2:40pm ) Tammy Peterson - Mental Health Therapist [Other] - 09/12/22 4:00 pm (Appointment: 09/12/2022 @ 4pm ) Physician,Unknown J [Primary Care Provider] - 1 Week Discharge Medications: New lisinopril 20 mg Tablet 20 mg PO DAILY Qty: 30 0RF Protocol: Hold for SBP< HOLD for SBP < : 90 amlodipine 5 mg Tablet 5 mg PO DAILY Qty: 30 0RF Protocol: Hold for SBP< HOLD for SBP < : 90 aspirin 81 mg Tablet,Delayed Release (Dr/Ec) 81 mg PO DAILY Qty: 30 0RF mirtazapine 45 mg tablet 45 mg PO BEDTIME Qty: 30 0RF Continued lorazepam 1 mg tablet 1 mg PO DAILY PRN (Reason: Anxiety) Rx Instructions: last filled 08/26/22 Discontinued amlodipine 5 mg Tablet 5 mg PO DAILY Rx Instructions: confirmed with [facility] last filled 08/17/22 aspirin 81 mg tablet,delayed release (DR/EC) 81 mg PO QAM mirtazapine 45 mg tablet 45 mg PO BEDTIME lisinopril 20 mg tablet 20 mg PO DAILY Rx Instructions: last filled 08/26/22 Discharge Orders: Discharge Order (Routine); Ordered 09/08/22 Ordered By: Zuleyma Vasquez Diet: Regular diet Activity on Discharge: As tolerated Stand Alone Forms: Patient Portal Discharge page Care Plan Goals: 1. Maintain mood 2. No SI/HI 3. No psychosis Health Concerns: Follow up with PCP Plan of Treatment: Take medications as prescribed Go to nearest ED or call 911 in event of emergency Assessment: Pt with brighter, non labile affect. No SI/HI. No psychosis. No delusions. Pt sleeping and eating well. Pt presents as future oriented in that he is looking forward to see family. Pt sleeping and eating.
--- NOTE | 2022-09-08 11:24 | PC.NURSE ---
Pt. A & O X 4. Denies anxiety/depression/SI/HI, or perceptual disturbances. Reports readiness for discharge and looks forward to family member's birthday republican. Discharge instructions and medications reviewed with pt. and daughter with use of philosophy instructor. Pt. left unit at 10:30 accompanied by this tech writer and daughter.
== END 2022-09-08 10:30 | disposition home or self-care (01) | DRG 885 ==
LOC: HO.ED 21:23 → HO.PGERI 09-04 15:42
PROVIDERS: Social Worker; Admitting Provider Psychiatry & Neurology Psychiatry; Emergency Provider Internal Medicine; Visit Provider Psychiatry & Neurology Psychiatry
DX: F33.1 Major depressive disorder, recurrent, moderate (principal); R45.851 Suicidal ideations; Z20.822 Contact with and (suspected) exposure to COVID-19; Z91.51 Personal history of suicidal behavior; Z87.891 Personal history of nicotine dependence; Z79.82 Long term (current) use of aspirin; Z79.899 Other long term (current) drug therapy
CPT/HCPCS: 36415; 80053; 80061; 80307; 81001; 82607; 82746; 85025; 87086; 87088; 87186; 87635; 93005; 99285

== ENCOUNTER 2022-12-19 13:33 | Outpatient (AMB) | payer MEDICARE, MEDICAID, SELFPAY ==
--- NOTE | 2022-12-19 14:04 | MHC.OFFVIS ---
Intake Intake Visit Reasons: Cysto/PVR Intake Note: Patient is present for Cystoscopy Urology Med: None Antibiotic Allergy: Ciprofloxacin Blood Thinner: Aspirin Pharmacy: [facility] Disposable Cystoscope used during Procedure LOT#:[id number] EXP: 08/13/2024 Allergies ciprofloxacin [Ciprofloxacin] Allergy (Severe, Verified 09/03/22 15:47) RASH AND ITCHING ALL OVER HPI HPI Comments History of Present Illness Details Carley is a pleasant male. He is seen for the following urologic conditions - bladder cancer Here for cystoscopy today Infected bladder Performed culture Reschedule Bladder cancer initial diagnosis 2004 Bladder cancer superficial low-grade No abnormality noted on prior cystoscopies Cystoscopy - 12/21 NAD PSA have remained low 12/21 0.3 Continue surveillance [facility] Medical History H/O primary malignant neoplasm of urinary bladder High cholesterol Depression Asthma Diabetes HTN (hypertension) Social History Household Members: Spouse and Children Housing: Apartment Are you a primary child care associate teacher to a significant other at home: No Do you presently have visiting nurse or other home services: No Alcohol intake: never Patient Tobacco Use Status: Former Tobacco user Tobacco use type: Cigarette Cigarettes Per Day: 20 e-Cigarette/Vaping Use: Never Used Second Hand Smoke Exposure: Yes Substance Use Type: Tranquilizers service: Yes Sexual orientation: Straight/Heterosexual Review of Systems Const Denies chills and Denies fever(s) Card Reports no additional complaints and Denies syncope Resp Denies cough GI Denies abdominal pain and Denies heartburn Reports as per HPI and Denies change in libido Neuro Denies syncope Psych Denies change in libido Endo Denies change in libido Physical Exam Const General: cooperative, healthy appearing, comfortable and no acute distress Orientation/consciousness: patient oriented x3 HEENT Face and sinus: Yes normal facial exam Mouth: moist mucous membranes Neck Neck: Yes normal visual inspection, Yes full ROM and Yes trachea midline Chest Chest palpation & inspection: normal inspection of the chest Resp Effort & Inspection: normal respiratory effort, able to speak in complete sentences and no respiratory distress GI Inspection: Yes normal to inspection Back/Spine/Pelvis Cervical Spine: normal cervical lordosis Thoracic/Lumbar Spine: thoracic and lumbar spine normal to inspection Skin General skin exam: no rashes or lesions noted Neuro General: patient oriented x3, gait normal, tone normal and moves all extremities Extrem General: Yes normal to inspection and Yes capillary refill normal Office Procedures Cystoscopy Consent Discussed risk and benefit or proposed procedure with the patient. Information consent for procedure given to the patient. Discussed technical aspects, risks, benefits and alternatives in full. Addressed all of the patient's questions and concerns regarding the procedure. The patient demonstrated knowledge and understanding. They wish to proceed with this procedure. Preparation The patient was prepped in the usual manner. A airworthiness safety inspector was present and in the room. Genitalia was prepped with betadine solution in a sterile manner. Lidocaine Jelly 2% was placed into the urethra and 16Fr flexible Olympus cystoscope was inserted into the meatus after adequate lubrication. Results AMB Urinalysis, Automated UA Leukoctes 500 Edwin/uL Last Edit by Ade Marcus [facility] on 12/19/22 14:20 UA Nitrite Positive Last Edit by Ade Marcus [facility] on 12/19/22 14:20 UA Urobilinogen 0.2 mg/dL Last Edit by Ade Marcus [facility] on 12/19/22 14:20 UA Protein 0 mg/dL Last Edit by Ade Marcus [facility] on 12/19/22 14:20 UA pH 6.0 Last Edit by Ade Marcus [facility] on 12/19/22 14:20 UA Blood 10 Gage/uL Last Edit by Ade Marcus [facility] on 12/19/22 14:20 UA Specific [place] 1.015 Last Edit by Ade Marcus [facility] on 12/19/22 14:20 UA Ketone Negative Last Edit by Ade Marcus [facility] on 12/19/22 14:20 UA Bilirubin 0 mg/dL Last Edit by Ade Marcus [facility] on 12/19/22 14:20 UA Glucose 0 mg/dL Last Edit by Ade Marcus [facility] on 12/19/22 14:20 Results Reviewed Results Reviewed: Laboratory Last Values Urine pH (Auto) 6.0 12/19/22 14:13 Specific [place] (Auto) 1.015 12/19/22 14:13 Urine Protein (Auto) 0 mg/dL 12/19/22 14:13 Glucose (UA)(Auto) 0 mg/dL 12/19/22 14:13 Urine Ketones (Auto) Negative 12/19/22 14:13 Urine Blood (Auto) 10 Gage/uL 12/19/22 14:13 Urine Nitrite (Auto) Positive 12/19/22 14:13 Urine Bilirubin (Auto) 0 mg/dL 12/19/22 14:13 Urine Urobilinogen (Auto) 0.2 mg/dL 12/19/22 14:13 Leukocyte Esterase (Auto) 500 Edwin/uL 12/19/22 14:13 Assessment & Plan Assessment & Plan (1) Complicated urinary tract infection: Code(s): N39.0 - Urinary tract infection, site not specified Plan Prescription provided Reschedule cystoscopy Orders: Orders AMB Cystoscopy Today C67.9 - Malignant neoplasm of bladder, unspecified AMB Urinalysis Automated Today C67.9 - Malignant neoplasm of bladder, unspecified, Z13.9 - Encounter for screening, unspecified Urine Cytology Today C67.9 - Malignant neoplasm of bladder, unspecified Urine Culture Today N39.0 - Urinary tract infection, site not specified Medications: New lidocaine HCl 2% 10 mL intra-urethral ONCE 10 mL 0RF C67.9 - Malignant neoplasm of bladder, unspecified nitrofurantoin monohyd/m-cryst 100 mg 100 mg PO ONCE 1 cap 0RF C67.9 - Malignant neoplasm of bladder, unspecified naproxen 500 mg PO ONCE 1 tab 0RF C67.9 - Malignant neoplasm of bladder, unspecified sulfamethoxazole-trimethoprim 800-160 mg (Bactrim DS) 1 tab PO bid 10 tabs 0RF 5 days N39.0 - Urinary tract infection, site not specified Patient Instructions: Imaging studies, laboratory and physical exam results were discussed and reviewed in detail. No major barriers to patient understanding were identified. An opportunity to ask questions regarding the treatment plan was provided. All questions were answered. The patient expressed understanding and agreement with the above treatment plan. The patient is aware they should contact our office by phone for worsening of their current condition or the appearance of new urologic symptoms. Compliance is encouraged with any medications and followup testing that is ordered. It is a privilege to participate in the urologic care of your patient. If you have any questions or concerns regarding treatment for the above conditions, or other urologic issues, please do not hesitate to contact me. The office telephone contact is [phone]. This note is constructed using voice recognition software. While every effort has been made to ensure accuracy hospital attendant errors may have been included. Yours sincerely, Dr Hilton Vivar MD, [facility] - Urology Providers of Expert, Compassionate Care for the Genitourinary System Coding Level of Care Code Est Pt Level 4 (77753) Diagnoses Complicated urinary tract infection N39.0
== END 2022-12-19 14:37 | disposition home or self-care (01) ==
PROVIDERS: PCP Family Medicine; Visit Provider Urology
DX: C67.9 Malignant neoplasm of bladder, unspecified (principal); N39.0 Urinary tract infection, site not specified; Z13.9 Encounter for screening, unspecified
CPT/HCPCS: 99214

== ENCOUNTER 2022-12-19 13:33 | Outpatient (REF) | payer MEDICARE, MEDICAID, SELFPAY ==
[2022-12-19 16:41] LABS: Urine Cytology See Pathology rpt
== END 2022-12-19 13:34 | disposition home or self-care (01) ==
LOC: HO.LAB 13:33
PROVIDERS: Visit Provider Urology
DX: C67.9 Malignant neoplasm of bladder, unspecified (principal); N39.0 Urinary tract infection, site not specified; Z87.891 Personal history of nicotine dependence
CPT/HCPCS: 81003; 87086; 87088; 87186; 88112; 99212

== ENCOUNTER 2023-01-02 14:31 | Outpatient (AMB) | payer MEDICARE, MEDICAID, SELFPAY ==
--- NOTE | 2023-01-02 14:47 | A.OFFVIS_ITS ---
Intake Intake Visit Reasons: 2 week cysto(Bladder Cancer) Intake Note: Patient is Present for Cystoscopy Urology Med: None Antibiotic Allergy: Cipro Blood Thinner: Aspirin Pharmacy: [facility] Disposable Cystoscope lot:[id number] exp:08/13/2024 Allergies ciprofloxacin [Ciprofloxacin] Allergy (Severe, Verified 09/03/22 15:47) RASH AND ITCHING ALL OVER HPI HPI Comments History of Present Illness Details Carley is a pleasant male. He is seen for the following urologic conditions - bladder cancer - recurring urinary tract infection No infection today Cystoscopy clear Incomplete bladder emptying Bladder cancer initial diagnosis 2004 Bladder cancer superficial low-grade No abnormality noted on prior cystoscopies Cystoscopy - 12/21 NAD, 01/22 NAD PSA have remained low 12/21 0.3 Continue surveillance Recurring UTI Had UTI a prior cystoscopy 11/22 Staphylococcus auricularis PFSH Medical History H/O primary malignant neoplasm of urinary bladder High cholesterol Depression Asthma Diabetes HTN (hypertension) Social History Household Members: Spouse and Children Housing: Apartment Are you a primary career portals teacher to a significant other at home: No Do you presently have visiting nurse or other home services: No Alcohol intake: never Patient Tobacco Use Status: Former Tobacco user Tobacco use type: Cigarette Cigarettes Per Day: 20 e-Cigarette/Vaping Use: Never Used Second Hand Smoke Exposure: Yes Substance Use Type: Tranquilizers service: Yes Sexual orientation: Straight/Heterosexual Review of Systems Const Denies chills and Denies fever(s) Card Reports no additional complaints and Denies syncope Resp Denies cough GI Denies abdominal pain and Denies heartburn Reports as per HPI and Denies change in libido Neuro Denies syncope Psych Denies change in libido Endo Denies change in libido Physical Exam Const General: cooperative, healthy appearing, comfortable and no acute distress Orientation/consciousness: patient oriented x3 HEENT Face and sinus: Yes normal facial exam Mouth: moist mucous membranes Neck Neck: Yes normal visual inspection, Yes full ROM and Yes trachea midline Chest Chest palpation & inspection: normal inspection of the chest Resp Effort & Inspection: normal respiratory effort, able to speak in complete sentences and no respiratory distress GI Inspection: Yes normal to inspection Back/Spine/Pelvis Cervical Spine: normal cervical lordosis Thoracic/Lumbar Spine: thoracic and lumbar spine normal to inspection Skin General skin exam: no rashes or lesions noted Neuro General: patient oriented x3, gait normal, tone normal and moves all extremities Extrem General: Yes normal to inspection and Yes capillary refill normal Office Procedures Cystoscopy Consent Discussed risk and benefit or proposed procedure with the patient. Information consent for procedure given to the patient. Discussed technical aspects, risks, benefits and alternatives in full. Addressed all of the patient's questions and concerns regarding the procedure. The patient demonstrated knowledge and understanding. They wish to proceed with this procedure. Preparation The patient was prepped in the usual manner. A small wind energy installer was present and in the room. Genitalia was prepped with betadine solution in a sterile manner. Lidocaine Jelly 2% was placed into the urethra and 16Fr flexible Olympus cystoscope was inserted into the meatus after adequate lubrication. Procedure Meatus normal position Urethra posterior urethra normal Prostatic Urethra unremarkable Bladder examination with retroflexion of cystoscope Bladder Orifices normal shape position Bladder Capacity small medium large Trabeculations medium Cellule Formation - Diverticulum Formation - Mucosal Erythema - Bladder Tumor - [id number] DISPOSABLE SCOPE URO-G FLEXIBLE SCOPE Procedure code (CPT) selection complete Office Meds lidocaine HCl 2 % mucosal jelly in applicator Performing Provider: Hilton Vivar MD Performing Location: [facility] Administered by: Milton Irving LPN on 01/02/23 15:01 Dose Route Admin Location Dispensed Lot Number Expiration Date NDC Smooth [employer]r Worker [employer]posites 10 mL intra-urethral 10 mL nitrofurantoin monohydrate/macrocrystals 100 mg capsule Performing Provider: Hilton Vivar MD Performing Location: [facility] Administered by: Milton Irving LPN on 01/02/23 15:01 Dose Route Admin Location Dispensed Lot Number Expiration Date NDC Smooth [employer] Burr Worker [employer] 100 mg PO 1 cap naproxen 500 mg tablet Performing Provider: Hilton Vivar MD Performing Location: [facility] Administered by: Milton Irving LPN on 01/02/23 15:01 Dose Route Admin Location Dispensed Lot Number Expiration Date NDC [employer] 500 mg PO 1 tab Results AMB Urinalysis, Automated UA Leukoctes 0 Edwin/uL Last Edit by SASHA Cuevas on 01/02/23 15:01 UA Nitrite Negative Last Edit by Ade Marcus, A on 01/02/23 15:01 UA Urobilinogen 0.2 mg/dL Last Edit by Ade Marcus, RMA on 01/02/23 15:0 1 UA Protein 0 mg/dL Last Edit by Ade Marcus, A on 01/02/23 15:01 UA pH 6.0 Last Edit by Ade Marcus, RMA on 01/02/23 15:01 UA Blood 0 Gage/uL Last Edit by Ade Marcus, RMA on 01/02/23 15:01 UA Specific [place] 1.010 Last Edit by Aed Marcus, A on 01/02/23 15: 01 UA Ketone Negative Last Edit by Ade Marcus, A on 01/02/23 15:01 UA Bilirubin 0 mg/dL Last Edit by Ade Marcus, A on 01/02/23 15:01 UA Glucose 0 mg/dL Last Edit by Ade Marcus, A on 01/02/23 15:01 Results Reviewed Results Reviewed: Laboratory Last Values Urine pH (Auto) 6.0 01/02/23 15:00 Specific [place] (Auto) 1.010 01/02/23 15:00 Urine Protein (Auto) 0 mg/dL 01/02/23 15:00 Glucose (UA)(Auto) 0 mg/dL 01/02/23 15:00 Urine Ketones (Auto) Negative 01/02/23 15:00 Urine Blood (Auto) 0 Gage/uL 01/02/23 15:00 Urine Nitrite (Auto) Negative 01/02/23 15:00 Urine Bilirubin (Auto) 0 mg/dL 01/02/23 15:00 Urine Urobilinogen (Auto) 0.2 mg/dL 01/02/23 15:00 Leukocyte Esterase (Auto) 0 Edwin/uL 01/02/23 15:00 Assessment & Plan Assessment & Plan (1) Bladder cancer: Code(s): C67.9 - Malignant neoplasm of bladder, unspecified Qualifiers: Bladder location: posterior wall Qualified Code(s): C67.4 - Malignant neoplasm of posterior wall of bladder (2) Complicated urinary tract infection: Code(s): N39.0 - Urinary tract infection, site not specified Plan Twelve month follow-up cystoscopy Orders: Orders AMB Cystoscopy 01/02/23 C67.9 - Malignant neoplasm of bladder, unspecified AMB Urinalysis Automated 01/02/23 Z13.9 - Encounter for screening, unspecified Urine Cytology 01/02/23 C67.9 - Malignant neoplasm of bladder, unspecified Patient Instructions: Imaging studies, laboratory and physical exam results were discussed and reviewed in detail. No major barriers to patient understanding were identified. An opportunity to ask questions regarding the treatment plan was provided. All questions were answered. The patient expressed understanding and agreement with the above treatment plan. The patient is aware they should contact our office by phone for worsening of their current condition or the appearance of new urologic symptoms. Compliance is encouraged with any medications and followup testing that is ordered. It is a privilege to participate in the urologic care of your patient. If you have any questions or concerns regarding treatment for the above conditions, or other urologic issues, please do not hesitate to contact me. The office telephone contact is [phone]. This note is constructed using voice recognition software. While every effort has been made to ensure accuracy head filter press tender errors may have been included. Yours sincerely, Dr Hilton Vivar MD, [facility] - Urology Providers of Expert, Compassionate Care for the Genitourinary System Coding Level of Care Code Est Pt Level 4 (77238) Diagnoses Malignant neoplasm of posterior wall of urinary bladder C67.4 Bladder location: posterior wall Complicated urinary tract infection N39.0 CPT Codes Cystoscopy - CPT: 09053-[id number] ([id number])
== END 2023-01-02 15:32 | disposition home or self-care (01) ==
LOC: HO.HUSH 14:31
PROVIDERS: PCP Family Medicine; Visit Provider Urology
DX: C67.9 Malignant neoplasm of bladder, unspecified (principal); Z13.9 Encounter for screening, unspecified
CPT/HCPCS: 52000

== ENCOUNTER 2023-01-02 14:31 | Outpatient (REF) | payer MEDICARE, MEDICAID, SELFPAY ==
[2023-01-02 16:43] LABS: Urine Cytology See Pathology rpt
== END 2023-01-02 14:32 | disposition home or self-care (01) ==
LOC: HO.LAB 14:31
PROVIDERS: PCP Family Medicine; Visit Provider Urology
DX: C67.4 Malignant neoplasm of posterior wall of bladder (principal); N39.0 Urinary tract infection, site not specified
CPT/HCPCS: 52000; 81003; 88112

== ENCOUNTER 2023-05-31 11:59 | Outpatient (REF) | payer MEDICARE, MEDICAID, SELFPAY ==
[2023-05-31 13:48] LABS: Creatinine Urine 27.28 mg/dL; Microalbumin Urine < 5.0 mg/L
== END 2023-05-31 12:00 | disposition home or self-care (01) ==
LOC: HO.HHCL 11:59
PROVIDERS: Visit Provider Family Medicine
DX: E11.9 Type 2 diabetes mellitus without complications (principal)
CPT/HCPCS: 82570

== ENCOUNTER 2023-10-18 11:27 | Outpatient (REF) | payer MEDICARE, MEDICAID, SELFPAY ==
[2023-10-18 13:07] LABS: MANUAL DIFF FLAG NO
[2023-10-18 13:15] LABS: Basophils Percent Auto 0.5 % (0-2); Eosinophils Absolute Auto 0.1 X10*3/uL (0.0-0.4); Eosinophils Percent Auto 1.4 % (0-4); Hematocrit 39.5 % (42.0-52.0); Hemoglobin 13.4 g/dl (14.0-18.0); Imm Gran Abs Auto 0.01 X10*3/uL (0.00-0.03); Imm Gran Pct Auto 0.2 % (0.0-0.4); Lymphocytes Absolute Auto 2.9 X10*3/uL (1.2-4.9); Lymphocytes Percent Auto 45.1 % (20-40); Mean Corpuscular HGB Conc 33.9 g/dl (31.0-36.0); Mean Corpuscular Hemoglobin 33.6 pg (27.0-33.0); Mean Platelet Volume 10.9 fL (9.4-12.4); Monocytes Absolute Auto 0.4 X10*3/uL (0.1-1.2); Monocytes Percent Auto 6.4 % (2-11); Neutrophils Percent Auto 46.4 % (45-73); Platelet Count 162 X10*3/uL (160-400); Red Blood Count 3.99 X10*6/uL (4.60-5.80); Red Cell Distribution Width 12.4 % (11.0-16.0); White Blood Count 6.5 X10*3/uL (4.8-10.8)
[2023-10-18 13:49] LABS: Alanine Aminotransferase 15 U/L (0-40); Albumin Level 4.4 g/dL (3.5-5.0); Alkaline Phosphatase 42 U/L (39-117); Anion Gap 13 (12-20); Aspartate Amino Transferase 21 U/L (5-37); Bilirubin Total 0.7 mg/dL (0.0-1.0); Blood Urea Nitrogen 15 mg/dL (9-16); C Reactive Protein 0.17 mg/dL (< or = 0.50); Calcium 9.7 mg/dL (8.4-10.2); Carbon Dioxide 25 mmol/L (22-29); Chloride 106 mmol/L (96-108); Cholesterol 163 mg/dL (<200); Estimated Glomerular Filt Rate 57; Glucose Random 128 mg/dL (60-115); HDL Cholesterol 53 mg/dL (>40); LDL Cholesterol Calculated 94 mg/dL (<100); Potassium 4.4 mmol/L (3.3-5.1); Sodium 140 mmol/L (135-145); Total Protein 7.7 g/dL (6.5-8.0); Triglycerides 81 mg/dL (<150)
[2023-10-18 13:51] LABS: Erythrocyte Sedimentation Rate 10 MM/HR (0-15)
[2023-10-18 14:10] LABS: Uric Acid 5.9 mg/dL (3.4-7.0)
[2023-10-18 14:14] LABS: Reflex LDLD? No
== END 2023-10-18 11:28 | disposition home or self-care (01) ==
LOC: HO.HHCL 11:27
PROVIDERS: Visit Provider Family Medicine
DX: M25.472 Effusion, left ankle (principal); E11.9 Type 2 diabetes mellitus without complications; I10 Essential (primary) hypertension; E78.5 Hyperlipidemia, unspecified
CPT/HCPCS: 36415; 80053; 80061; 84550; 85025; 85652; 86140

== ENCOUNTER 2024-01-02 12:59 | Outpatient (AMB) | payer MEDICARE, MEDICAID, SELFPAY ==
--- NOTE | 2024-01-02 13:34 | MHC.OFFVIS ---
Intake Visit Reasons: 1Y Cystoscopy(Bladder Ca) Intake Note: Patient is present for Cystoscopy Urology Medication:BACTRIM Antibiotic Allergy:CIPROFLOXACIN Blood Thinner:ASPIRIN Lot:[id number] Exp:02/03/27 Museum Exhibit Technician Required: No Allergies ciprofloxacin [Ciprofloxacin] Allergy (Severe, Verified 01/02/24 13:36) RASH AND ITCHING ALL OVER HPI Comments Details: Carley is a pleasant male. He is seen for the following urologic conditions - bladder cancer - recurring urinary tract infection Yearly follow-up for bladder cancer Clear cystoscopy Bladder cancer initial diagnosis 2004 Bladder cancer superficial low-grade No abnormality noted on prior cystoscopies Cystoscopy - 12/21 NAD, 01/22 NAD PSA have remained low 12/21 0.3 Continue surveillance Recurring UTI Had UTI a prior cystoscopy 11/22 Staphylococcus auricularis [facility] Medical History H/O primary malignant neoplasm of urinary bladder High cholesterol Depression Asthma Diabetes HTN (hypertension) Social History Household Members: Spouse and Children Housing: Apartment Are you a primary post acute care nurse to a significant other at home: No Do you presently have visiting nurse or other home services: No Alcohol intake: never Patient Tobacco Use Status: Former Tobacco user Tobacco use type: Cigarette Cigarettes Per Day: 20 e-Cigarette/Vaping Use: Never Used Second Hand Smoke Exposure: Yes Substance Use Type: Tranquilizers service: Yes Sexual orientation: Straight/Heterosexual Review of Systems Const Denies chills and Denies fever(s) Card Reports no additional complaints and Denies syncope Resp Denies cough GI Denies abdominal pain and Denies heartburn Reports as per HPI and Denies change in libido Neuro Denies syncope Psych Denies change in libido Endo Denies change in libido Physical Exam Const General: cooperative, healthy appearing, comfortable and no acute distress Orientation/consciousness: patient oriented x3 HEENT Face and sinus: Yes normal facial exam Mouth: moist mucous membranes Neck Neck: Yes normal visual inspection, Yes full ROM and Yes trachea midline Chest Chest palpation & inspection: normal inspection of the chest Resp Effort & Inspection: normal respiratory effort, able to speak in complete sentences and no respiratory distress GI Inspection: Yes normal to inspection Back/Spine/Pelvis Cervical Spine: normal cervical lordosis Thoracic/Lumbar Spine: thoracic and lumbar spine normal to inspection Skin General skin exam: no rashes or lesions noted Neuro General: patient oriented x3, gait normal, tone normal and moves all extremities Extrem General: Yes normal to inspection and Yes capillary refill normal Office Procedures Cystoscopy Consent Discussed risk and benefit or proposed procedure with the patient. Information consent for procedure given to the patient. Discussed technical aspects, risks, benefits and alternatives in full. Addressed all of the patient's questions and concerns regarding the procedure. The patient demonstrated knowledge and understanding. They wish to proceed with this procedure. Preparation The patient was prepped in the usual manner. A bronzer was present and in the room. Genitalia was prepped with betadine solution in a sterile manner. Lidocaine Jelly 2% was placed into the urethra and 16Fr flexible Olympus cystoscope was inserted into the meatus after adequate lubrication. Procedure Cystoscopy performed using a disposable Urovue digital 16 Green[place]ic cystoscope. Meatus circumcised Urethra anterior and posterior urethra normal Prostatic Urethra open TURP defect Bladder examination with retroflexion of cystoscope Bladder Orifices normal shape and position Bladder Capacity large Trabeculations grade 3 Cellule Formation ES Diverticulum Formation - Mucosal Erythema prior scarring Bladder Tumor [id number] DISPOSABLE SCOPE URO-G FLEXIBLE SCOPE Procedure code (CPT) selection complete Office Meds lidocaine HCl 2 % mucosal jelly in applicator Performing Provider: Hilton Vivar MD Performing Location: [facility] [place] [facility] Administered by: Praneeth Lynn RN on 01/02/24 14:38 Dose Route Admin Location Dispensed Lot Number Expiration Date NDC Division Director 10 mL intra-urethral 10 mL nitrofurantoin monohydrate/macrocrystals 100 mg capsule Performing Provider: Hilton Vivar MD Performing Location: [facility] Administered by: Praneeth Lynn RN on 01/02/24 14:38 Dose Route Admin Location Dispensed Lot Number Expiration Date NDC Division Director 100 mg PO 1 cap naproxen 500 mg tablet Performing Provider: Hilton Vivar MD Performing Location: [facility] Administered by: Praneeth Lynn RN on 01/02/24 14:38 Dose Route Admin Location Dispensed Lot Number Expiration Date NDC Division Director 500 mg PO 1 tab Results AMB Urinalysis, Automated UA Leukoctes 0 Edwin/uL Last Edit by JOSE J Gambino on 01/02/24 14:31 UA Nitrite Negative Last Edit by JOSE J Gambino on 01/02/24 14:31 UA Urobilinogen 0.2 mg/dL Last Edit by JOSE J Gambino on 01/02/24 14:31 UA Protein 0 mg/dL Last Edit by Marc Bryant [facility] on 01/02/24 14:31 UA pH 6.5 Last Edit by Marc Bryant [facility] on 01/02/24 14:31 UA Blood 10 Gage/uL Last Edit by Marc Bryant [facility] on 01/02/24 14:31 UA Specific [place] 1.010 Last Edit by JOSE J Gambino on 01/02/24 14:31 UA Ketone Negative Last Edit by JOSE J Gambino on 01/02/24 14:31 UA Bilirubin 0 mg/dL [facility] 01/02/[facility] 14:31 UA Glucose 0 mg/dL Last Edit [facility] 01/02/24 14:31 Results Reviewed Results Reviewed: Laboratory Last Values Urine pH (Auto) 6.5 01/02/24 14:30 Specific [place] (Auto) 1.010 01/02/24 14:30 Urine Protein (Auto) 0 mg/dL 01/02/24 14:30 Glucose (UA)(Auto) 0 mg/dL 01/02/24 14:30 Urine Ketones (Auto) Negative 01/02/24 14:30 Urine Blood (Auto) 10 Gage/uL 01/02/24 14:30 Urine Nitrite (Auto) Negative 01/02/24 14:30 Urine Bilirubin (Auto) 0 mg/dL 01/02/24 14:30 Urine Urobilinogen (Auto) 0.2 mg/dL 01/02/24 14:30 Leukocyte Esterase (Auto) 0 Edwin/uL 01/02/24 14:30 Assessment & Plan Assessment & Plan (1) Complicated urinary tract infection: Code(s): N39.0 - Urinary tract infection, site not specified Category: Medical (2) Bladder cancer: Code(s): C67.9 - Malignant neoplasm of bladder, unspecified Category: Medical Qualifiers: Bladder location: posterior wall Qualified Code(s): C67.4 - Malignant neoplasm of posterior wall of bladder Plan 12 month follow-up check cysto Orders: Orders AMB Urinalysis Automated Today Z13.9 - Encounter for screening, unspecified AMB Cystoscopy Today C67.4 - Malignant neoplasm of posterior wall of bladder Patient Instructions: Imaging studies, laboratory and physical exam results were discussed and reviewed in detail. No major barriers to patient understanding were identified. An opportunity to ask questions regarding the treatment plan was provided. All questions were answered. The patient expressed understanding and agreement with the above treatment plan. The patient is aware they should contact our office by phone for worsening of their current condition or the appearance of new urologic symptoms. Compliance is encouraged with any medications and followup testing that is ordered. It is a privilege to participate in the urologic care of your patient. If you have any questions or concerns regarding treatment for the above conditions, or other urologic issues, please do not hesitate to contact me. The office telephone contact is [phone]. This note is constructed using voice recognition software. While every effort has been made to ensure accuracy spring tacker errors may have been included. Yours sincerely, Dr Hilton Vivar MD, [facility] - Urology Providers of Expert, Compassionate Care for the Genitourinary System Coding Level of Care Code Est Pt Level 4 (62852) Diagnoses Complicated urinary tract infection N39.0 Malignant neoplasm of posterior wall of urinary bladder C67.4 Bladder location: posterior wall CPT Codes Cystoscopy - CPT: 59729-[id number] ([id number])
== END 2024-01-02 15:06 | disposition home or self-care (01) ==
PROVIDERS: PCP Family Medicine; Visit Provider Urology
DX: N39.0 Urinary tract infection, site not specified (principal); C67.4 Malignant neoplasm of posterior wall of bladder
CPT/HCPCS: 52000; 99213

== ENCOUNTER → 2024-01-02 12:59 | Outpatient (BNVA) | payer MEDICARE, MEDICAID, SELFPAY | PROVIDERS: PCP Family Medicine; Visit Provider Urology | DX: N39.0 Urinary tract infection, site not specified (principal); C67.4 Malignant neoplasm of posterior wall of bladder | CPT/HCPCS: 52000; 81003; 99212 ==

== ENCOUNTER 2024-01-28 11:13 | Inpatient (IN) | payer MEDICARE, MEDICAID, SELFPAY ==
--- NOTE | ~2024-01-28 | MR_ITS ---
EXAMINATION: MR BRAIN WITHOUT CONTRAST CLINICAL INFORMATION: Onset seizure COMPARISON: CT scan of brain on 01/28/2024 TECHNIQUE: MRI of the brain was obtained using routine sequences without contrast. FINDINGS: Ventricles, sulci and cisterns are normal. Multiple patchy and focal T2 hyperintense lesions are seen in bilateral frontal and parietal subcortical and deep white matters. Smaller focal T2 hyperintense lesions are seen in left posterior superior temporal deep white matter No focal brainstem or cerebellar lesions with abnormal signal can be seen. Diffusion weighted images show no abnormal regional decrease in diffusion. Normal flow voids of major intracerebral blood vessels are seen in the visualized portion. The pituitary gland is normal. Optic chiasm is not displaced. Cerebellar tonsils position is normal. Bilateral ethmoid sinuses show mild mucosal thickening. MR/MR head/brain wo con IMPRESSION: 1. Extensive bilateral frontal, parietal, left temporal patchy and focal T2 hyperintense white matter lesions are seen, could be compatible with extensive ischemic white matter disease due to microangiopathy or multifocal demyelinating disease or lesions associated with migraine headache. 2. No acute cerebral infarction is seen. 3. No evidence of space occupying mass lesion could be found. 4. No evidence of intracranial hemorrhage. Electronically signed by: Khris Curtis MD 01/29/2024 01:25 PM EDT
--- NOTE | ~2024-01-28 | XR_ITS ---
EXAMINATION: XR CHEST CLINICAL INFORMATION: Chest pain. COMPARISON: 10/16/2021. TECHNIQUE: Frontal view of the chest was obtained. FINDINGS: There is no gross pneumothorax. Heart size is normal. Redemonstration of asymmetric elevation of the left lung base. Multilevel degenerative changes in the thoracic spine. No new focal consolidation to suggest pneumonia. No gross pleural effusion. Multiple leads overlie the thorax and left costophrenic angle. XR/XR chest 1V IMPRESSION: Redemonstration of asymmetric elevation of the left lung base. No new focal consolidation to suggest pneumonia. Electronically signed by: Kiara Stark MD 01/28/2024 12:44 PM EDT
--- NOTE | ~2024-01-28 | CT_ITS ---
EXAMINATION: CT ANGIOGRAM HEAD CT ANGIOGRAM NECK CLINICAL INFORMATION: Cerebrovascular accident. COMPARISON: CT head from 01/28/2024. TECHNIQUE: Initial noncontrast animal trapper imaging of the head and neck was performed. Comparison is made with noncontrast head CT from earlier today. Test bolus sequences followed by intravenous administration 70 mL of Omnipaque 350. Helical imaging was performed in the axial plane from the aortic arch to the skull vertex. Delayed postcontrast imaging of the head was also performed. The data was processed at the mri special procedures technologist's workstation for generation of MIP sequences. Angled MIPs and volume rendered reformatted images were also generated at an offline 3D workstation. Stenoses are assessed in accordance with NASCET criteria unless otherwise indicated. This CT examination was performed using dose optimization techniques as appropriate, variously including the following: *Automated exposure control. *Adjustment of mA and/or kV according to patient size (this includes techniques or standardized protocols for targeted exams where dose is matched to indication/reason for exam; i.e. extremities or head). *Use of iterative reconstruction technique. DLP: 1511 mGy-cm FINDINGS: CT Head: There is no evidence of acute intracranial hemorrhage or edematous territorial infarction. Luna-white matter differentiation is preserved. A few foci of hypoattenuation in the periventricular and deep white matter are consistent with mild microangiopathy. Proportional prominence of the ventricles and sulcal spaces without evidence of obstructive hydrocephalus. No abnormal mass effect or midline shift. No extra-axial fluid collections. No pathologic intra-axial enhancement or regional oligemia. No acute soft tissue or osseous abnormalities. Mild mucosal thickening of the paranasal sinuses. The mastoid air cells and middle ear cavities are clear. The patient is edentulous. Bilateral lens extractions. CT Neck: The thyroid gland and remaining cervical soft tissues are within normal limits. Mild degenerative retrolisthesis of L5 on S1. Otherwise, normal anatomic alignment. Advanced degenerative disc disease from C2-C4 and at C5-C6. Disc-osteophyte complex formation with superimposed disc extrusions from C3-C6. There appears to be at least moderate spinal canal stenoses from C3-C6. Facet and uncovertebral joint arthropathy leads to osseous encroachment on the neural foramina from C3-C6. CT Upper Chest: Moderate centrilobular emphysema. The visualized lung apices and upper mediastinum are within normal limits. Neck CTA: Aortic Arch: Normal contour and caliber with moderate calcific atherosclerotic disease. Classic 3 vessel branching pattern of the aortic arch. Great Vessel Origins: No significant stenosis of the branch origins. Right Common Carotid Artery: No focal stenosis or occlusion. Cervical Right Internal Carotid Artery: Mild calcific atherosclerotic disease of the carotid bulb and proximal internal carotid artery without flow-limiting stenosis. Left Common Carotid Artery: No focal stenosis or occlusion. Cervical Left Internal Carotid Artery: Calcific atherosclerotic disease of the carotid bulb and proximal internal carotid artery causing less than 50% stenosis. Cervical Right Vertebral Artery: Atherosclerotic disease causes mild stenosis of the origin. No additional focal stenosis or occlusion. Cervical Left Vertebral Artery: Mildly dominant. Atherosclerotic disease causes mild stenosis of the origin. No additional focal stenosis or occlusion. Brain CTA: Intracranial Internal Carotid Arteries: Calcific atherosclerotic disease of the intracranial internal carotid arteries without occlusion or flow-limiting stenosis. Right Anterior Cerebral Artery: Normal A1 segment. Normal opacification of the distal SERGEY segments. Left Anterior Cerebral Artery: Normal A1 segment. Normal opacification of the distal SERGEY segments. Anterior Communicating Artery: Normal. Right Middle Cerebral Artery: Normal M1 segment of the MCA without focal stenosis or occlusion. Normal arborization of the distal segments. Left Middle Cerebral Artery: Normal M1 segment of the MCA without focal stenosis or occlusion. Normal arborization of the distal segments. Right Vertebral Artery: Normal V4 segment. Normal opacification of the proximal segments of the posterior inferior cerebellar artery. Left Vertebral Artery: Normal V4 segment. Normal opacification of the proximal segments of the posterior inferior cerebellar artery. Basilar Artery: Normal without focal stenosis or occlusion. Normal appearance of the proximal superior cerebellar arteries. Right Posterior Cerebral Artery: The P1 segment is diminutive. origin of the [employer] with robust opacification of the posterior communicating artery. Normal opacification of the distal [employer] segments. Left Posterior Cerebral Artery: Normal P1 segment. Normal opacification of the distal [employer] segments. Normal opacification of the superior sagittal, straight, transverse, and sigmoid sinuses. CT/CT angio head neck stroke IMPRESSION: 1. No evidence of acute intracranial hemorrhage or edematous territorial infarction. Mild underlying microangiopathy and generalized cerebral volume loss. 2. CTA of the head and neck without proximal occlusion or flow-limiting stenosis. 3. Moderate multilevel degenerative spondyloarthropathy of the cervical spine. Most notably, there appears to be at least moderate spinal canal stenoses from C3-C6. 4. Emphysema. Electronically signed by: Lucas Addison DO 01/28/2024 02:40 PM EDT RP
--- NOTE | ~2024-01-28 | CT_ITS ---
EXAMINATION: CT HEAD WITHOUT CONTRAST CLINICAL INFORMATION: Syncope. COMPARISON: CT head 10/16/2021. TECHNIQUE: Contiguous axial imaging was performed from the skull base to vertex without intravenous administration of contrast. This CT examination was performed using dose optimization techniques as appropriate, variously including the following: *Automated exposure control *Adjustment of mA and/or kV according to patient size (this includes techniques or standardized protocols for targeted exams where dose is matched to indication/reason for exam; i.e. extremities or head) *Use of iterative reconstruction technique DLP: 704.5 mGy-cm FINDINGS: Equivocal asymmetric dense left MCA sign. There is no evidence of acute intracranial hemorrhage or edematous territorial infarction. There is no abnormal attenuation within the brain parenchyma. Luna-white matter differentiation is preserved. Proportional prominence of the ventricles and sulcal spaces. No evidence for obstructive hydrocephalus. No abnormal mass effect or midline shift. No extra-axial fluid collections. No acute soft tissue or osseous abnormalities. The mastoid air cells and paranasal sinuses are clear. Bilateral lens extraction. CT/CT head/brain wo IV con IMPRESSION: Equivocal asymmetric dense left MCA sign which could indicate intraluminal clot. Recommend clinical correlation and if indicated further evaluation with a CTA of the head. This critical result was discussed with Dr. Alexander at 01/28/2024 12:37 PM CDT and it was ascertained that the content and urgency of the report was understood at the time of direct communication. Electronically signed by: Dorene Pike MD 01/28/2024 01:41 PM EDT
--- NOTE | ~2024-01-28 | CT_ITS ---
EXAMINATION: CT ABDOMEN AND PELVIS WITHOUT CONTRAST CLINICAL INFORMATION: Question stone. COMPARISON: CT abdomen/pelvis June 04, 2020 TECHNIQUE: Multidetector volumetric imaging was performed from the superior aspect of the liver through the pubic symphysis. Sagittal and coronal reformatted images were obtained on the technologist's workstation. This CT examination was performed using dose optimization techniques as appropriate, variously including the following: *Automated exposure control *Adjustment of mA and/or kV according to patient size (this includes techniques or standardized protocols for targeted exams where dose is matched to indication/reason for exam; i.e. extremities or head) *Use of iterative reconstruction technique DLP: 472 mGy-cm FINDINGS: LUNG BASES: Trace pericardial effusion. LIVER, GALLBLADDER, AND BILIARY TREE: The noncontrast liver is normal in size and contour. No biliary ductal dilatation is present. The gallbladder is unremarkable with no evidence of radiopaque gallstones, gallbladder wall thickening, or obvious pericholecystic inflammatory changes. PANCREAS: There is questionable fullness of the distal body of the pancreas incompletely evaluated without intravenous contrast and due to the presence of motion artifact. SPLEEN: Unremarkable. ADRENAL GLANDS: Unremarkable. KIDNEYS AND URETERS: The kidneys are symmetric in size. No renal or ureteral calculus. No hydronephrosis or perinephric fluid collection. BLADDER: Trabeculated urinary bladder. Multiple bladder diverticula. Diffuse wall thickening. GASTROINTESTINAL TRACT: Questionable gastric wall thickening. Marked fecal retention in the colon. No small bowel obstruction. Appendix is within normal limits. ABDOMINAL WALL: No significant hernia is appreciated. LYMPH NODES: No bulky lymphadenopathy. VASCULAR: Normal caliber abdominal aorta. PELVIC VISCERA: Enlarged prostate gland. OSSEOUS STRUCTURES: No destructive bone lesions. CT/CT abdomen pelvis wo IV con IMPRESSION: No nephrolithiasis or hydronephrosis. Trabeculated urinary bladder with multiple bladder diverticula and diffuse bladder wall thickening. Enlarged prostate gland. Questionable fullness of the distal body of the pancreas with evaluation limited by motion artifact and lack of intravenous contrast. MRI/MRCP is recommended for further evaluation. Questionable gastric wall thickening. Electronically signed by: Sumeet Guevara MD 01/28/2024 12:43 PM EDT
--- NOTE | 2024-01-28 11:19 | ECG_ITS ---
Test Reason : CHEST PAIN Blood Pressure : / mmHG Vent. Rate : 065 BPM Atrial Rate : 065 BPM P-R Int : 130 ms QRS Dur : 120 ms QT Int : 410 ms P-R-T Axes : 075 024 033 degrees QTc Int : 426 ms Normal sinus rhythm Right bundle branch block Abnormal ECG When compared with ECG of 03-SEP-2022 14:46, Right bundle branch block is now Present Referred By: Al Alexander Electronically Signed By:JEF SARABIA
--- NOTE | 2024-01-28 11:35 | ED.SYNCOPE ---
HPI - Syncope General Chief Complaint: Syncope Stated Complaint: UNWIT FALL @DRS,UNRESP/BREATHING,NARCAN/NO RESP Time Seen by Provider: 01/28/24 11:19 Source: EMS Mode of arrival: EMS Limitations: no limitations History of Present Illness HPI narrative: This is 79 years old male presented to the emergency department after a syncopal episode he was the doctor office standing up and and the syncope, he was given a 4 mg on Narcan by the staff, he was transported to the emergency department patient is more awake and alert now denies any chest pain shortness of breath. While in the emergency room had seizure activity which require IV lorazepam. MD complaint: loss of consciousness Onset (ago): hour(s) (1) Description of event: post-event confusion Prodromal symptoms: none Context: at rest History: other (htn) Related Data Home Medications ?Medication ?Instructions ?Recorded ?Confirmed lorazepam 1 mg tablet 1 mg PO DAILY PRN Anxiety 12/21/21 09/03/22 rosuvastatin 20 mg tablet 20 mg PO BEDTIME 12/19/22 Previous Rx's ?Medication ?Instructions ?Recorded amlodipine 5 mg tablet 5 mg PO DAILY #30 tabs 09/08/22 aspirin 81 mg tablet,delayed 81 mg PO DAILY #30 tabs 09/08/22 release lisinopril 20 mg tablet 20 mg PO DAILY #30 tabs 09/08/22 mirtazapine 45 mg tablet 45 mg PO BEDTIME #30 tabs 09/08/22 sulfamethoxazole 800 1 tab PO bid 5 days #10 tabs 12/19/22 mg-trimethoprim 160 mg tablet (Bactrim DS) Allergies Allergy/AdvReac Type Severity Reaction Status Date / Time ciprofloxacin [Ciprofloxacin] Allergy Severe RASH AND Verified 01/28/24 11:49 ITCHING ALL OVER Review of Systems Eyes: Eyes: Reports no additional eye complaints Cardiovascular: Cardiovascular: Reports no additional cardiovascular complaints Gastrointestinal: Gastrointestinal: Reports no additional gastrointestinal complaints [facility] Past Medical History [facility] Narrative: Hypertension history of depression no history of drug abuse Medical History H/O primary malignant neoplasm of urinary bladder High cholesterol Depression Asthma Diabetes HTN (hypertension) Social History Social History Household Members: Spouse and Children Housing: Apartment Are you a primary campground caretaker to a significant other at home: No Do you presently have visiting nurse or other home services: No Alcohol intake: never Patient Tobacco Use Status: Former Tobacco user Tobacco use type: Cigarette Cigarettes Per Day: 20 e-Cigarette/Vaping Use: Never Used Second Hand Smoke Exposure: Yes Substance Use Type: Tranquilizers Advance Directives: No Advance Directives Information Provided: No service: Yes Sexual orientation: Straight/Heterosexual Physical Exam Vital Signs: Vital Signs: Last Vital Signs Temp 97.7 F 01/28/24 13:43 Pulse 61 01/28/24 13:43 Resp 14 01/28/24 13:43 BP 108/57 L 01/28/24 13:43 Pulse Ox 97 01/28/24 13:43 O2 Del Method Room Air 01/28/24 13:43 Oxygen Flow Rate 4 01/28/24 11:41 BMI result Body Mass Index 21.3 Const: General: cooperative Nutritional Appearance: average body habitus HEENT: Head: Yes normal to inspection General nose exam: Normal external nose present Mouth: Normal oral and palatal mucosa present Throat: Yes posterior oropharynx normal Neck: Neck: Yes normal visual inspection Chest: Chest palpation & inspection: normal inspection of the chest Resp: Effort & Inspection: normal respiratory effort Auscultation: clear to auscultation bilaterally Cardio: Jugular venous distension: no JVD Rate: regular rate Rhythm: regular rhythm Heart sounds: S1 normal heart sound present GI: Inspection: Yes normal to inspection Palpation (GI): Soft to palpation Skin: General skin exam: no rashes or lesions noted Lesions: no lesions Rashes: no rashes Extrem: General: Yes normal to inspection Right lower extremity: normal to inspection Course Reevaluation(s) Reevaluation #1: Patient had the seizure activity witnessed by RN in the emergency department was given IV lorazepam IV Keppra Time: 11:40 Reevaluation #2: Remain stable labs okay anticipate admission Time: 13:24 Reevaluation #3: CTA negative d/w hospitalist Time: 14:43 Medications Administered Discontinued Medications Generic Name Dose Route Start Last Admin Trade Name Freq PRN Reason Stop Dose Admin Sodium Chloride 1,000 mls @ 999 mls/hr 01/28/24 11:30 01/28/24 14:37 Ns IVCONT 01/28/24 12:30 Infused .Q1H1M PRISCILLA Infusion Levetiracetam 1,500 mg in 100 mls @ 400 mls/hr 01/28/24 11:30 01/28/24 12:54 Keppra IV 01/28/24 11:44 Infused ONCE ONE Infusion Iohexol 100 ml 01/28/24 14:09 01/28/24 14:10 Iohexol 350 Mg/Ml 100 Ml Infus..Btl IV 01/28/24 14:10 70 ml ONCE ONE Administration Lorazepam 0.5 mg 01/28/24 11:32 01/28/24 11:47 Lorazepam 2 Mg/Ml Vial IVPUSH 01/28/24 11:33 0.5 mg ONCE ONE Administration Medical Decision Making Medical Decision Making [facility] Narrative: Patient presented after a syncopal episode differential diagnosis cardiac arrhythmia including ventricular tachycardia ventricular fibrillation bradyarrhythmia Differential Diagnosis Differential Diagnoses: The differential diagnosis associated with the presentation includes As above V-tach/VFib/intracranial bleed Admission/Observation Consideration of admission/observation: Escalation of care including admission/observation considered Consult Healthcare Provider Management of the patient was discussed with: Hospitalist Lab Data [facility] Lab Attestation statement: I reviewed the patient's lab results. 01/28/24 11:53 01/28/24 11:53 Labs: Lab Results 01/28/24 01/28/24 Range/Units 11:53 11:56 WBC 6.0 (4.8-10.8) X10*3/uL RBC 4.19 L (4.60-5.80) X10*6/uL Hgb 13.9 L (14.0-18.0) g/dl Hct 40.9 L (42.0-52.0) % MCV 97.6 (80.0-98.0) fL MCH 33.2 H (27.0-33.0) pg MCHC 34.0 (31.0-36.0) g/dl RDW 11.8 (11.0-16.0) % Plt Count 145 L (160-400) X10*3/uL MPV 10.3 (9.4-12.4) fL Immature Gran % (Auto) 0.2 (0.0-0.4) % Neut % (Auto) 44.7 L (45-73) % Lymph % (Auto) 46.4 H (20-40) % Archuleta % (Auto) 6.9 (2-11) % Eos % (Auto) 1.3 (0-4) % Baso % (Auto) 0.5 (0-2) % Lymph # (Auto) 2.8 (1.2-4.9) X10*3/uL Archuleta # (Auto) 0.4 (0.1-1.2) X10*3/uL Eos # (Auto) 0.1 (0.0-0.4) X10*3/uL Baso # (Auto) 0.0 (0.0-0.2) X10*3/uL Abs Immat Gran (auto) 0.01 (0.00-0.03) X10*3/uL Absolute Neuts (auto) 2.7 (2.0-8.3) x10*3/uL Absolute Nucleated RBC 0.000 (0.0-0.012) X10*3/uL Nucleated RBC % (auto) 0.0 (0.0-0.2) /100WBC Sodium 140 (135-145) mmol/L Potassium 4.6 (3.3-5.1) mmol/L Chloride 108 (96-108) mmol/L Carbon Dioxide 26 (22-29) mmol/L Anion Gap 11 L (12-20) BUN 14 (9-16) mg/dL Creatinine 0.97 (0.5-1.4) mg/dL Estim Creat Clear Calc 49.2 Estimated GFR > 60 POC Glucose 135 H (60-115) mg/dL Random Glucose 150 H (60-115) mg/dL Calcium 10.1 (8.4-10.2) mg/dL Magnesium 2.0 (1.6-2.6) mg/dL Total Bilirubin 0.6 (0.0-1.0) mg/dL AST 27 (5-37) U/L ALT 17 (0-40) U/L Alkaline Phosphatase 45 (39-117) U/L Troponin I High Sens < 2.7 (<3.5-35.0) ng/L Total Protein 7.5 (6.5-8.0) g/dL Albumin 4.2 (3.5-5.0) g/dL Urine Opiates Screen Not Detected (Not Detect) Ur Buprenorphine Scrn Not Detected (Not Detect) ng/mL Ur Oxycodone Screen Not Detected (Not Detect) ng/mL Urine Methadone Screen Not Detected (Not Detect) ng/mL Urine Fentanyl Screen Not Detected (Not Detect) Ur Barbiturates Screen Not Detected (Not Detect) Ur Phencyclidine Scrn Not Detected (Not Detect) Ur Amphetamines Screen Not Detected (Not Detect) U Benzodiazepines Scrn Not Detected (Not Detect) Urine Cocaine Screen Not Detected (Not Detect) U Marijuana (THC) Screen Not Detected (Not Detect) Ethyl Alcohol < 10 mg/dL Independent Interpretation I performed an independent interpretation of an: EKG (Sinus rhythm rate [address]-T changes) Radiology Impression Discussion of test interpretation with radiology: I have reviewed the radiologist's reading. Radiologist Impression: CT scan of the abdomen and pelvis reviewed by me not acute disease CT scan of the head reviewed by me no acute disease Independent Historian Clinical information obtained from an independent historian. History obtained from or confirmed by: EMS External Record Review External record reviewed: Inpatient record Chronic Conditions Patient?s care impacted by: Hypertension Critical Care Time Critical Care Time Critical Care Time: Yes Total Critical Care Time: 60 Attestation: Taking care of the patient talking to the EMS, IV lorazepam speaking with the hospitalist/radiologist Discharge Plan Discharge Clinical Impression: Seizure Syncope Qualifiers: Syncope type: unspecified Qualified Code(s): R55 - Syncope and collapse Patient Disposition: Admitted As Inpatient Print Language: Nepalese
[2024-01-28 11:39] VITALS: BP 144/86; PULSE 76; O2SAT 99
[2024-01-28 11:41] VITALS: BP 175/74; PULSE 72; RESP 22; O2SAT 96; BMI 21.3
--- NOTE | 2024-01-28 11:45 | PC.NURSE ---
public works technician called staff into room dt patient having another episode of unresponsivness but +cartoid pulse 72, +RR 16, Patient holding breathe and released after about 2 minutes. MD and staff at bedside. Pt has patent 20g IV LAC, pt placed on capnography and back on 2L NC. Patient negative for tremors or any grand mal seizure like sypmtoms. patient remained contient and no vomiting. Patient given medication per MD orders and brought to CT scan for stat head CT.
[2024-01-28] MEDS: LORazepam 2 MG/ML VIAL 0.5 MG IVPUSH (11:47)
[2024-01-28] MEDS: 0.9 % Sodium Chloride 1,000 ML 999 ML IVCONT (11:53)
[2024-01-28] MEDS: levETIRAcetam in NaCl (iso-os) 1,500 MG/100 ML PIGGYBACK 400 MG IV (11:55)
[2024-01-28 11:59] LABS: Glucose, Whole Blood 135 mg/dL (60-115)
[2024-01-28 12:00] LABS: MANUAL DIFF FLAG NO
[2024-01-28 12:05] LABS: Basophils Percent Auto 0.5 % (0-2); Eosinophils Absolute Auto 0.1 X10*3/uL (0.0-0.4); Eosinophils Percent Auto 1.3 % (0-4); Hematocrit 40.9 % (42.0-52.0); Hemoglobin 13.9 g/dl (14.0-18.0); Imm Gran Abs Auto 0.01 X10*3/uL (0.00-0.03); Imm Gran Pct Auto 0.2 % (0.0-0.4); Lymphocytes Absolute Auto 2.8 X10*3/uL (1.2-4.9); Lymphocytes Percent Auto 46.4 % (20-40); Mean Corpuscular Hemoglobin 33.2 pg (27.0-33.0); Mean Corpuscular Volume 97.6 fL (80.0-98.0); Mean Platelet Volume 10.3 fL (9.4-12.4); Monocytes Absolute Auto 0.4 X10*3/uL (0.1-1.2); Monocytes Percent Auto 6.9 % (2-11); Neutrophils Absolute Auto 2.7 x10*3/uL (2.0-8.3); Neutrophils Percent Auto 44.7 % (45-73); Platelet Count 145 X10*3/uL (160-400); Red Blood Count 4.19 X10*6/uL (4.60-5.80); Red Cell Distribution Width 11.8 % (11.0-16.0)
[2024-01-28 12:24] LABS: Alanine Aminotransferase 17 U/L (0-40); Albumin Level 4.2 g/dL (3.5-5.0); Alkaline Phosphatase 45 U/L (39-117); Anion Gap 11 (12-20); Aspartate Amino Transferase 27 U/L (5-37); Blood Urea Nitrogen 14 mg/dL (9-16); Calcium 10.1 mg/dL (8.4-10.2); Carbon Dioxide 26 mmol/L (22-29); Chloride 108 mmol/L (96-108); Creatinine Clr Calc Pharmacy 49.2; Estimated Glomerular Filt Rate > 60; Ethanol < 10 mg/dL; Glucose Random 150 mg/dL (60-115); Potassium 4.6 mmol/L (3.3-5.1); Sodium 140 mmol/L (135-145); Total Protein 7.5 g/dL (6.5-8.0)
[2024-01-28 12:28] LABS: Amphetamine Screen Urine Not Detected (Not Detect); Barbiturates, Urine Not Detected (Not Detect); Benzodiazepines Screen Urine Not Detected (Not Detect); Buprenorphine Scr Not Detected (Not Detect); Cannabinoid Screen Urine Not Detected (Not Detect); Cocaine Screen Urine Not Detected (Not Detect); Fentanyl, urine Not Detected (Not Detect); Methadone Screen, Urine Not Detected (Not Detect); Opiate Screen Urine Not Detected (Not Detect); Oxycodone Screen Urine Not Detected (Not Detect); Phencyclidine Screen Urine Not Detected (Not Detect)
[2024-01-28 12:34] LABS: Bilirubin Total 0.6 mg/dL (0.0-1.0)
[2024-01-28 12:35] LABS: Troponin-I High Sensitivity < 2.7 ng/L (<3.5-35.0)
[2024-01-28 12:55] VITALS: BP 118/58; PULSE 78; RESP 20; TEMP 36.3; O2SAT 96
--- NOTE | 2024-01-28 13:09 | PC.NURSE ---
patient recovered quickly from earlier episode of unresponsiveness, pt reoriented and alert and calm and cooperative without any complaints.
--- NOTE | 2024-01-28 13:28 | PM.IMHP ---
History of Present Illness Date of Service: 01/28/24 Attending physician on admission: Omar Hawkins Chief Complaint: I feel fine and want to go home This is a 79-year-old male with a past medical history significant for recurrent major depressive disorder, history of complicated urinary tract infection, malignant neoplasm of urinary bladder, hypertension, hyperlipidemia who presents to the emergency room via EMS from his PCP's office after a syncopal episode. On EMS arrival, EMS empirically gave Narcan (it is noted that patient had pinpoint pupils however there is no history of polysubstance use). In the emergency department patient had a witnessed mild seizure and received 1500 mg IV Keppra and 0.5 mg of Ativan. At time of my assessment of patient, he is observed alert and oriented x3, no obvious focal deficits, no slurred speech. Patient is denying headache, dizziness, shortness of breath, fevers or chills. He reports that he went to see his PCP earlier today and ?I put my hands up on the counter and then all of a sudden everything went black?. CT brain without:Equivocal asymmetric dense left MCA sign which could indicate intraluminal clot. Recommend clinical correlation and if indicated further evaluation with a CTA of the head. CTA head/neck angiogram:1. No evidence of acute intracranial hemorrhage or edematous territorial infarction. Mild underlying microangiopathy and generalized cerebral volume loss. 2. CTA of the head and neck without proximal occlusion or flow-limiting stenosis. 3. Moderate multilevel degenerative spondyloarthropathy of the cervical spine. Most notably, there appears to be at least moderate spinal canal stenoses from C3-C6. 4. Emphysema. CT abdomen and pelvis without contrast:No nephrolithiasis or hydronephrosis. Trabeculated urinary bladder with multiple bladder diverticula and diffuse bladder wall thickening. Enlarged prostate gland. Questionable fullness of the distal body of the pancreas with evaluation limited by motion artifact and lack of intravenous contrast. MRI/MRCP is recommended for further evaluation. Questionable gastric wall thickening. Chest x-ray: Redemonstration of asymmetric elevation of the left lung base. No new focal consolidation to suggest pneumonia. Initial laboratory results: WBC 6, H and H 13.9/40.9, platelets 145, anion gap 11, POC 135, random glucose 150, urine toxicology negative, he has alcohol less than 10. In the emergency department the above is profound and patient received 1500 mg IV Keppra, 0.5 mg IV Ativan and 1 L NS. The decision was made to admit patient for medical management. Review of Systems Review of Systems: A complete 12 point review of systems was performed and are negative if not noted in HPI. [facility] Medical History H/O primary malignant neoplasm of urinary bladder High cholesterol Depression Asthma Diabetes HTN (hypertension) Social History Household Members: Spouse and Children Housing: Apartment Are you a primary acute care clinical nurse specialist to a significant other at home: No Do you presently have visiting nurse or other home services: No Alcohol intake: never Patient Tobacco Use Status: Never used Tobacco Tobacco use type: Cigarette Cigarettes Per Day: 20 e-Cigarette/Vaping Use: Never Used Second Hand Smoke Exposure: Yes Substance Use Type: Tranquilizers service: Yes Sexual orientation: Straight/Heterosexual Meds Allergies Allergy/AdvReac Type Severity Reaction Status Date / Time ciprofloxacin [Ciprofloxacin] Allergy Severe RASH AND Verified 01/28/24 11:49 ITCHING ALL OVER Home Medications ?Medication ?Instructions ?Recorded ?Confirmed ?Last Taken ?Type lorazepam 1 mg tablet 1 mg PO DAILY PRN Anxiety 12/21/21 01/28/24 Unknown History rosuvastatin 20 mg tablet 20 mg PO BEDTIME 12/19/22 01/28/24 Unknown History Physical Exam Vital Signs and Narrative: Vital Signs: Last Vital Signs Temp 97.4 F 01/28/24 12:55 Pulse 78 01/28/24 12:55 Resp 20 01/28/24 12:55 BP 118/58 L 01/28/24 12:55 Pulse Ox 96 01/28/24 12:55 O2 Del Method Room Air 01/28/24 12:55 Oxygen Flow Rate 4 01/28/24 11:41 BMI result Body Mass Index 21.3 Const: Other: General: Appears stated age, in no acute distress, answers questions accurately and appropriately, limited history to details. Skin: Warm and well perfused, no obvious lesions, bruises, open wounds or sores Cardiology: Regular rate and rhythm, no murmurs, rubs, gallops or clicks, no JVD or carotid bruits appreciated Respiratory: Lungs CTAB, no inspiratory wheezing, rales or rhonchi, no increased accessory muscle use noted Abdomen: Soft, non distended, nontender, bowel sounds active in all 4 quadrants, no abdominal guarding or Rugby sign Extremity: No pitting edema noted, no redness, tenderness or swelling noted to bilateral lower extremities. Neuro: Alert and oriented x3, no obvious focal deficits no pronator drift upper and lower extremities Psych: Calm, appropriate, follows commands, no agitation restlessness noted Results Labs 01/28/24 11:53 01/28/24 11:53 Labs: Laboratory Results - last 24 hr 01/28/24 01/28/24 11:53 11:56 MCV 97.6 MCH 33.2 H MCHC 34.0 RDW 11.8 Plt Count 145 L MPV 10.3 Immature Gran % (Auto) 0.2 Neut % (Auto) 44.7 L Lymph % (Auto) 46.4 H Wilson % (Auto) 6.9 Eos % (Auto) 1.3 Baso % (Auto) 0.5 Lymph # (Auto) 2.8 Wilson # (Auto) 0.4 Eos # (Auto) 0.1 Baso # (Auto) 0.0 Abs Immat Gran (auto) 0.01 Absolute Neuts (auto) 2.7 Absolute Nucleated RBC 0.000 Nucleated RBC % (auto) 0.0 Anion Gap 11 L Estim Creat Clear Calc 49.2 Estimated GFR > 60 POC Glucose 135 H Random Glucose 150 H Calcium 10.1 Magnesium 2.0 Total Bilirubin 0.6 AST 27 ALT 17 Alkaline Phosphatase 45 Troponin I High Sens < 2.7 Total Protein 7.5 Albumin 4.2 Urine Opiates Screen Not Detected Ur Buprenorphine Scrn Not Detected Ur Oxycodone Screen Not Detected Urine Methadone Screen Not Detected Urine Fentanyl Screen Not Detected Ur Barbiturates Screen Not Detected Ur Phencyclidine Scrn Not Detected Ur Amphetamines Screen Not Detected U Benzodiazepines Scrn Not Detected Urine Cocaine Screen Not Detected U Marijuana (THC) Screen Not Detected Ethyl Alcohol < 10 Imaging Radiologist's Impressions: Impressions Abdomen/Pelvis CT 01/28/24 11:21 IMPRESSION: No nephrolithiasis or hydronephrosis. Trabeculated urinary bladder with multiple bladder diverticula and diffuse bladder wall thickening. Enlarged prostate gland. Questionable fullness of the distal body of the pancreas with evaluation limited by motion artifact and lack of intravenous contrast. MRI/MRCP is recommended for further evaluation. Questionable gastric wall thickening. Electronically signed by: Sumeet Guevara MD 01/28/2024 12:43 PM EDT RP Chest X-Ray 01/28/24 11:42 IMPRESSION: Redemonstration of asymmetric elevation of the left lung base. No new focal consolidation to suggest pneumonia. Electronically signed by: Kiara Stark MD 01/28/2024 12:44 PM EDT RP Assessment and Plan (1) Seizure: Status: Acute (2) Syncope: Qualifiers: Syncope type: unspecified Qualified Code(s): R55 - Syncope and collapse Status: Acute (3) MDD (major depressive disorder), recurrent episode, moderate: Status: Acute (4) Complicated urinary tract infection: Status: Acute (5) Bladder cancer: Qualifiers: Bladder location: posterior wall Qualified Code(s): C67.4 - Malignant neoplasm of posterior wall of bladder Status: Acute Plan ACUTE MEDICAL ISSUES: New onset seizures - CT brain without:Equivocal asymmetric dense left MCA sign which could indicate intraluminal clot. Recommend clinical correlation and if indicated further evaluation with a CTA of the head. - CTA head/neck angiogram:1. No evidence of acute intracranial hemorrhage or edematous territorial infarction. Mild underlying microangiopathy and generalized cerebral volume loss. 2. CTA of the head and neck without proximal occlusion or flow-limiting stenosis. 3. Moderate multilevel degenerative spondyloarthropathy of the cervical spine. Most notably, there appears to be at least moderate spinal canal stenoses from C3-C6. 4. Emphysema. - Patient was noted to have a new onset seizure in the emergency department, he received 1500 mg IV Keppra as well as 0.5 mg IV Ativan - Obtain MRI of brain along with EEG - Chest x-ray: Redemonstration of asymmetric elevation of the left lung base. No new focal consolidation to suggest pneumonia. - Neurology consulted , recommendations appreciated - Continue IV Keppra 1000 mg b.i.d., Ativan ordered p.r.n. seizure activity - Monitor on telemetry - Rule out infectious cause Syncope - Patient was initially sent in for syncopal episode while at his PCP's office. EMS was contacted. - In the ED was known to have seizure episode, plan per above regarding seizures - CT head/neck per above. - Will obtain echocardiogram, monitor on telemetry - Obtain orthostatic signs. History of complicated urinary tract infection History of malignant neoplasm of the bladder - CT abdomen and pelvis without contrast:No nephrolithiasis or hydronephrosis. Trabeculated urinary bladder with multiple bladder diverticula and diffuse bladder wall thickening. Enlarged prostate gland. Questionable fullness of the distal body of the pancreas with evaluation limited by motion artifact and lack of intravenous contrast. MRI/MRCP is recommended for further evaluation. Questionable gastric wall thickening. - Consider MRCP - Obtain UA with culture indicated CHRONIC LONGSTANDING ISSUES Hypertension - Initial blood pressure on arrival 175/74, current BP 108/57 - Patient has not maintained on lisinopril/amlodipine. Hyperlipidemia - Normally maintained on rosuvastatin, we will check lipid profile in a.m.. Asthma - Not appearing in exacerbation. Chest x-ray clear. Albuterol ordered p.r.n.. Major depressive disorder - Maintain on mirtazapine. I do not see that patient is on any maintenance medications at this time. OTHER: DVT prophylaxis - Intermittent sequential boots. Chemical DVT prophylaxis currently contraindicated at this time. Patient is a full code HCP/emergency contact is patient's daughter Mayra Delong, -daughter was updated at time of admission Patient's can also be contacted, Jaye Beebe, Quality Stroke Does the patient have a stroke diagnosis?: No VTE Prior VTE?: No VTE Risk Level:: Medical - moderate - high VTE Device Contraindication: N/A - Device Ordered VTE Drug Contraindication: Treatment Not Indicated
[2024-01-28 13:43] VITALS: BP 108/57; PULSE 61; RESP 14; TEMP 36.5; O2SAT 97
[2024-01-28] MEDS: iohexoL 350 MG/ML 100 ML INFUS..BTL IV (14:10)
[2024-01-28 15:05] LABS: Appearance Urine Clear; Color Urine Yellow; Glucose Urine UA Negative (Negative); Leukocyte Esterase Urine Negative (Negative); Nitrite Urine Negative (Negative); Specific Gravity - Urine <= 1.005 (1.005-1.025); Urine Blood Negative (Negative); Urine Ketones Negative (Negative); Urine Protein Negative (Neg-Trace)
--- NOTE | 2024-01-28 15:05 | PHA.MEDREC ---
Addendum entered by Marshal Lilly RPh 01/28/24 15:31: MED REC CHECKED BY [facility] Original Note: Pharmacy Consult ? Medication Reconciliation Pharmacy has completed the medication reconciliation. Spoke to patient and he was able to confirmed his medications once I tell him what they were and he was able to tell me if he took his medications at bedtime or in the morning.
[2024-01-28 16:06] VITALS: BP 133/74; PULSE 71; RESP 16; TEMP 36.7; O2SAT 96
--- NOTE | 2024-01-28 16:06 | PM.NEUROCN ---
History of Present Illness Data of Consult Service Date: 01/28/24 Primary Care Provider: Genia Jarquin MD [facility] Reason for consult: Seizure 79 years old man with apparently no past medical history of seizure disorder or drug abuse fell down and passed out and was given Narcan. While in emergency room he apparently had an episode of shaking or seizure and was given load of Keppra. He said that he had been having the symptoms recently and had 3-4 times. Review of Systems Review of Systems: No recent head trauma or exposure to drugs or alcohol [facility] Past Medical History Medical History H/O primary malignant neoplasm of urinary bladder High cholesterol Depression Asthma Diabetes HTN (hypertension) Social History Social History Household Members: Spouse and Children Housing: Apartment Are you a primary intensive care medicine specialist to a significant other at home: No Do you presently have visiting nurse or other home services: No Alcohol intake: never Patient Tobacco Use Status: Former Tobacco user Tobacco use type: Cigarette Cigarettes Per Day: 20 e-Cigarette/Vaping Use: Never Used Second Hand Smoke Exposure: Yes Substance Use Type: Tranquilizers Advance Directives: No Advance Directives Information Provided: No service: Yes Sexual orientation: Straight/Heterosexual Meds Allergies Allergy/AdvReac Type Severity Reaction Status Date / Time ciprofloxacin [Ciprofloxacin] Allergy Severe RASH AND Verified 01/28/24 11:49 ITCHING ALL OVER Active Medications: Current Medications Acetaminophen (Acetaminophen 325 Mg Tablet) 650 mg PO Q6H PRN PRN Reason: Pain, Mild (Pain Scale 1-3), fever or headache Acetaminophen (Acetaminophen 325 Mg Tablet) 650 mg PO Q6H PRN PRN Reason: fever Levetiracetam (Keppra) 1,000 mg in 100 mls @ 400 mls/hr IV Q12H PRISCILLA Lorazepam (Lorazepam 2 Mg/Ml Vial) 1 mg IVPUSH Q2H PRN PRN Reason: Seizures Ondansetron HCl (Ondansetron Hcl 4 Mg/2 Ml Vial) 4 mg IVPUSH Q8H PRN PRN Reason: Nausea and Vomiting Senna (Sennosides 8.6 Mg Tablet) 17.2 mg PO BEDTIME PRN PRN Reason: constipation Sodium Chloride (0.9 % Sodium Chloride Flush 3 Ml Syringe) 3 ml IVFLUSH QSHIFT [facility] Home Medications ?Medication ?Instructions ?Recorded ?Confirmed ?Last Taken ?Type lorazepam 1 mg tablet 1 mg PO DAILY PRN Anxiety 12/21/21 01/28/24 Unknown History rosuvastatin 20 mg tablet 20 mg PO BEDTIME 12/19/22 01/28/24 Unknown History Physical Exam Vital Signs: Vital Signs: Last Vital Signs Temp 97.7 F 01/28/24 13:43 Pulse 61 01/28/24 13:43 Resp 14 01/28/24 13:43 BP 108/57 L 01/28/24 13:43 Pulse Ox 97 01/28/24 13:43 O2 Del Method Room Air 01/28/24 13:43 Oxygen Flow Rate 4 01/28/24 11:41 BMI result Body Mass Index 21.3 Neuro: Other: He is alert and awake with normal spontaneity of speech fluency comprehension and affect. There is no focal weakness. Face is symmetrical. Visual maddox are full. Plantars are flexor. Aabvky-al-qjsd testing is normal. Results Labs 01/28/24 11:53 01/28/24 11:53 Labs: Short CBC 01/28/24 Range/Units 11:53 WBC 6.0 (4.8-10.8) X10*3/uL Hgb 13.9 L (14.0-18.0) g/dl Hct 40.9 L (42.0-52.0) % Plt Count 145 L (160-400) X10*3/uL BMP 01/28/24 11:53 Sodium 140 Potassium 4.6 Chloride 108 Carbon Dioxide 26 BUN 14 Creatinine 0.97 Calcium 10.1 Liver Function 01/28/24 Range/Units 11:53 Total Bilirubin 0.6 (0.0-1.0) mg/dL AST 27 (5-37) U/L ALT 17 (0-40) U/L Alkaline Phosphatase 45 (39-117) U/L Albumin 4.2 (3.5-5.0) g/dL Urine 01/28/24 Range/Units 14:55 Urine Color Yellow Urine Appearance Clear Urine pH 7.0 (5.0-9.0) Ur Specific [place] <= 1.005 (1.005-1.025) Urine Protein Negative (Neg-Trace) mg/dL Urine Glucose (UA) Negative (Negative) mg/dL head CT and CTA of brain did not reveal any acute abnormality. Mild diffuse atrophy was noted. Assessment and Plan (1) Seizure: Status: Acute Possible new onset seizure disorder. My recommendation is to obtain an electroencephalogram and for now continue levetiracetam 500 mg twice a day. Procedures Date of Service Date of Service: 01/28/24
[2024-01-28 16:32] VITALS: O2SAT 98
--- NOTE | 2024-01-28 16:35 | PC.NURSE ---
pt transported to MRI
--- NOTE | 2024-01-28 17:40 | PC.NURSE ---
patient alert and oriented and remains calm and cooperative with no futher syncope/seizure like events. patient denies any pain. daughter called and given update on pt status.
--- NOTE | 2024-01-28 19:36 | HE.NUR.EV ---
Status Change: ELOPEMENT Immediate Actions Taken: Family visitor (pt son so) asked to call pt and he states he doesn't have a phone. surveillance agent notified, security notified. Pt unable to be found intially. Daughter rhoda called and notified and she states he just walked in the door Patient walked home from hospital. inpatient hospitalist Alba DEGROOT notified of incident as well. Notifications: gabrielle CORREA notified of pt elopement and 2 IV's in arms if they could go check on pt and take out the IV's. PD agreed to check and discontinue IVs. Further Monitoring and Treatment: n/a
--- NOTE | 2024-01-28 20:49 | PM.EVENT ---
Event Note Date of Service: 01/28/24 Event Note: Patient unfortunately eloped later on in the evening without informing RN, ED provider or this provider. Patient's daughter was called who informed the RN that patient was home. She was advised that patient come back to the hospital to continue care however patient refused. HPD was sent to patient's home to remove IV lines. Time Spent With Patient Time: Total time managing care of this patient today ____ minutes.
[2024-01-29 05:13] VITALS: BP 133/74; PULSE 71; RESP 16; TEMP 36.6; O2SAT 98
[2024-02-02 06:04] LABS: Levetiracetam Keppra 31.8 mcg/mL (6.0-46.0)
== END 2024-01-29 05:19 | disposition left against medical advice (07) | DRG 101 ==
LOC: HO.ED 13:31 → HO.EDOVER 14:50 → HO.IMC 17:55 → HO.EDOVER 19:43
PROVIDERS: Admitting Provider Registered Nurse; Emergency Provider Emergency Medicine; PCP Family Medicine; Visit Provider Internal Medicine
DX: R56.9 Unspecified convulsions (principal); I10 Essential (primary) hypertension; E78.5 Hyperlipidemia, unspecified; J45.909 Unspecified asthma, uncomplicated; Z87.440 Personal history of urinary (tract) infections; Z79.82 Long term (current) use of aspirin; Z79.899 Other long term (current) drug therapy
CPT/HCPCS: 36415; 70450; 70496; 70498; 70551; 71045; 74176; 80053; 80177; 80307; 81003; 82947; 83735; 84484; 85025; 93005; 99285; J1953; J2060; Q9967

== ENCOUNTER → 2024-01-28 11:19 | Outpatient (BNV) | payer MEDICARE, MEDICAID, SELFPAY | PROVIDERS: Admitting Provider Registered Nurse; Emergency Provider Emergency Medicine; PCP Family Medicine; Visit Provider Internal Medicine | DX: R07.9 Chest pain, unspecified (principal); I45.10 Unspecified right bundle-branch block; R94.31 Abnormal electrocardiogram [ECG] [EKG] | CPT/HCPCS: 93010 ==

== ENCOUNTER → 2024-01-28 14:47 | Outpatient (BNV) | payer MEDICARE, MEDICAID, SELFPAY | PROVIDERS: Admitting Provider Registered Nurse; Emergency Provider Emergency Medicine; PCP Family Medicine; Visit Provider Registered Nurse | DX: R56.9 Unspecified convulsions (principal); R55 Syncope and collapse; F33.1 Major depressive disorder, recurrent, moderate; N39.0 Urinary tract infection, site not specified; C67.4 Malignant neoplasm of posterior wall of bladder | CPT/HCPCS: 99222; 99499 ==

== ENCOUNTER → 2024-01-28 14:47 | Outpatient (BNV) | payer MEDICARE, MEDICAID, SELFPAY | PROVIDERS: Admitting Provider Registered Nurse; Emergency Provider Emergency Medicine; PCP Family Medicine; Visit Provider Psychiatry & Neurology Neurology | DX: R56.9 Unspecified convulsions (principal) | CPT/HCPCS: 99222 ==

== ENCOUNTER 2024-03-17 09:36 | Outpatient (REF) | payer MEDICARE, MEDICAID, SELFPAY ==
[2024-03-17 12:18] LABS: MANUAL DIFF FLAG NO
[2024-03-17 12:32] LABS: Basophils Percent Auto 0.3 % (0-2); Eosinophils Absolute Auto 0.1 X10*3/uL (0.0-0.4); Eosinophils Percent Auto 1.6 % (0-4); Hematocrit 40.8 % (42.0-52.0); Hemoglobin 13.5 g/dl (14.0-18.0); Imm Gran Abs Auto 0.02 X10*3/uL (0.00-0.03); Imm Gran Pct Auto 0.3 % (0.0-0.4); Immature Retic Fraction 6.9 % (2.3-13.4); Lymphocytes Absolute Auto 2.5 X10*3/uL (1.2-4.9); Lymphocytes Percent Auto 38.3 % (20-40); Mean Corpuscular HGB Conc 33.1 g/dl (31.0-36.0); Mean Corpuscular Hemoglobin 33.2 pg (27.0-33.0); Mean Corpuscular Volume 100.2 fL (80.0-98.0); Mean Platelet Volume 11.7 fL (9.4-12.4); Monocytes Absolute Auto 0.5 X10*3/uL (0.1-1.2); Monocytes Percent Auto 7.3 % (2-11); Neutrophils Absolute Auto 3.3 x10*3/uL (2.0-8.3); Neutrophils Percent Auto 52.2 % (45-73); Platelet Count 146 X10*3/uL (160-400); Red Blood Count 4.07 X10*6/uL (4.60-5.80); Red Cell Distribution Width 12.3 % (11.0-16.0); Retic HGB Equivalent 36.7 pg (30.0-35.0); Reticulocyte Percent 1.6 % (0.5-1.8); Reticulocytes Absolute 0.064 X10*6/uL (0.026-0.095); White Blood Count 6.4 X10*3/uL (4.8-10.8)
[2024-03-17 12:45] LABS: Alanine Aminotransferase 29 U/L (0-40); Albumin Level 4.4 g/dL (3.5-5.0); Alkaline Phosphatase 41 U/L (39-117); Anion Gap 11 (12-20); Aspartate Amino Transferase 33 U/L (5-37); Bilirubin Total 0.5 mg/dL (0.0-1.0); Blood Urea Nitrogen 12 mg/dL (9-16); Calcium 8.9 mg/dL (8.4-10.2); Carbon Dioxide 28 mmol/L (22-29); Chloride 106 mmol/L (96-108); Cholesterol 136 mg/dL (<200); Estimated Glomerular Filt Rate > 60; Glucose Random 140 mg/dL (60-115); HDL Cholesterol 54 mg/dL (>40); Iron 98 mcg/dL (45-160); LDL Cholesterol Calculated 67 mg/dL (<100); Percent Iron Saturation 42 % (15-50); Potassium 4.1 mmol/L (3.3-5.1); Sodium 141 mmol/L (135-145); Total Iron Binding Capacity 235 mcg/dL (228-428); Total Protein 7.6 g/dL (6.5-8.0); Triglycerides 76 mg/dL (<150); Unsaturated Iron Binding 137 ug/dL
[2024-03-17 12:59] LABS: Reflex LDLD? No
[2024-03-17 13:04] LABS: Ferritin 133 ng/mL (20-250)
[2024-03-17 13:11] LABS: Folate 13.5 ng/mL (> or = 4.0); Vitamin B12 334 pg/mL (200-900)
== END 2024-03-17 09:37 | disposition home or self-care (01) ==
LOC: HO.HHCL 09:36
PROVIDERS: Visit Provider Family Medicine
DX: D64.9 Anemia, unspecified (principal); E78.5 Hyperlipidemia, unspecified; E11.9 Type 2 diabetes mellitus without complications
CPT/HCPCS: 36415; 80053; 80061; 82607; 82728; 82746; 83540; 85025; 85045

== ENCOUNTER 2024-05-01 13:39 | Outpatient (REF) | payer MEDICARE, MEDICAID, SELFPAY ==
--- OUTSIDE RECORDS SUMMARY | 2024-05-01 17:33 | XMS_ITS | Encounter Summary ---
Author Organization [employer] Address [address] [place] [address] [address] Care [address] Driver Name Role Phone Genia Jarquin MD Primary Care Provider [phone] Scooby Dwyer PharmD Unavailable [phone] Encounter Details Date Type Department Care Team ([facility] st Contact Info) Description 10/19/2023 Orders Only [facility] MEDICINE [address], [place] [phone] Genia Jarquin MD [address] [place], [place] [phone] Anemia, unspecified type (Primary Dx); Stage 3a chronic kidney disease (CMS/HCC) Social History Tobacco Use Types Packs/Day Years Used Date Smoking Tobacco: Never Passive Smoke Exposure: Never Smokeless Tobacco: Never Alcohol Use Standard Drinks/Week Comments Never 0 (1 standard drink = 0.6 oz pur e alcohol) Depression Answer Date Recorded Patient Health Questionnaire-9 Score 2 10/18/2023 Patient Health Questionnaire-9 Score 2 10/18/2023 Last PHQ-9: Questionnaire Data Not on file 0 10/18/2023 Housing Stability Answer Date Recorded What is your housing situation today? I have mery llamas 10/18/[address] you li ve. Do you have problems with any of the following? None of the above 10/18/2023 Food Insecurity Answer Date Recorded Within the past 12 months, y ou worried that your food would run out before you got money to buy more: Never True 10/18/2023 Within the past 12 months,th e food you bought just didn't last and you didn't have enough money to get more: Never True Transportation Answer Date Recorded In the past 12 months, has l ack of transportation kept you from medical appts, meetings, work or from getting things needed for daily living? Yes, it has kept me from medical appointments or getting medications. 10/18/2023 Utilities Answer Date Recorded In the past 12 months, has t he electric, gas, oil or water company threatened to shut off services in your home? No 10/18/2023 Depression Answer Date Recorded Patient Health Questionnaire-2 Score 2 10/18/2023 Sex and Gender Information Value Date Recorded Sex Assigned at Male 01/30/2022 10:15 AM EDT Legal Sex Male 10:15 AM EDT Gender Identity Male 10/18/2023 10:00 AM EDT Sexual Orientation Straight 10/18/2023 10 :00 AM EDT documented as of this encounter Plan of Treatment Scheduled Orders Name Type Priority Associated Diagnoses Orde r Schedule Basic Metabolic Panel Lab Routine Stage 3a chronic kidney disease (CMS/HCC) Expected: 10/19/2023 (Approximate), Expires: 10/18/2024 documented as of this encounter Goals Goal Patient Goal Type Associated Problems Recent Progress Patient-Stated? Author Blood Pressure < 140/90 Blood Pressure 140/68(2023 9:12 AM EST) No Scooby Dwyer, Lissette Hemoglobin A1c < 7 Result Component 5.9( 9:05 AM EST) No Scooby Dwyer PharmD documented as of this encounter Procedures Procedure Name Priority Date/Time Associated Diagnosis Comments PATHOLOGIST REVIEW - CBC Routine 03/17/2024 9:48 AM EST Anemia, unspecified type VITAMIN B12/FOLATE, SERUM PANEL Routine 03/17/2024 9:48 AM EST Anemia, unspecified type CBC WITH AUTO DIFFERENTIAL Routine 03/17/2024 9:48 AM EST Anemia, unspecified type IRON AND TOTAL IRON BINDING CAPACITY Routine 03/17/2024 9:48 AM EST Anemia, unspecified type RETICULOCYTE COUNT Routine 03/17/2024 9: 48 AM EST Anemia, unspecified type FERRITIN Routine 03/17/2024 9:48 AM EST Anemia, unspecified type documented in this encounter Results * (ABNORMAL) Reticulocyte Count (03/17/2024 9:48 AM EST) Reticulocytes Absolute 0.064 0.026 - 0.095 X10*6/uL [facility] Immature Retic Fraction 6.9 2.3 - 13.4 % [facility] Retic HGB Equivalent 36.7(H) 30.0 - 35.0 pg [facility] Reticulocyte Percent 1.6 0.5 - 1.8 % [facility] Blood Venous blood specimen / Unknown 03/17/2024 9:48 AM EST 03/17/2024 12:16 PM EST Genia Jarquin MD LAB BLOOD ORDERABLES Final Resul t Performing Organization Address City/[facility] Co de Phone Number [facility] [address] [place] [phone] * Vitamin B12 (Cobalamin) and Folate Panel, Serum (03/17/2024 9:48 AM EST) Vitamin B12 334 200 - 900 pg/mL [facility] Comment:NORMAL 200-900 PG/ML INDETERMINATE 160-199 PG/ML DEFICIENT < 160 PG/ML Folate 13.5 > or = 4.0 ng/mL [facility] Comment:Reference Values:> o r = 4.0 ng/mL< 4.0 ng/mL suggests folate deficiency Methotrexate, aminopterin and folinic acid(leucovorin) are chemotherapeutic agents whose molecularstructures are similar to folate; therefore, the Architectfolate assay cannot be used for patients using these drugs. Blood 03/17/2024 9:48 AM EST 03/17/2024 12:16 PM EST Genia Jarquin MD LAB BLOOD ORDERABLES Final Resul t Performing Organization Address City/[facility]/ZIP Co de Phone Number [facility] [address] [place] [phone] * Pathologist Review - CBC (03/17/2024 9:48 AM EST) Pathologist Review - CBC SEE NOTE [facility] Comment:Normochromic macrocy tic anemia; occasional echinocytes arepresent. The differential includes liver or thyroiddisease, alcohol, monoclonal proteins and myelodysplasticsyndrome, among other etiologies.- Ron Neely M.D. Pathology Blood Venous blood specimen / Unknown 03/17/2024 9:48 AM EST 03/17/2024 12:16 PM EST Genia Jarquin MD LAB BLOOD ORDERABLES Final Resul t Performing Organization Address [facility] Co de Phone Number [facility] [address] [place] [phone] * Iron And Total Iron Binding Capacity (03/17/2024 9:48 AM EST) Iron 98 45 - 160 mcg/dL [facility] Total Iron Binding Capacity 235 228 - 428 mcg/dL [facility] Percent Iron Saturation 42 15 - 50 % [facility] Unsaturated Iron Binding 137 ug/dL [facility] Blood Venous blood specimen / Unknown 03/17/2024 9:48 AM EST 03/17/2024 12:16 PM EST Genia Jarquin MD LAB BLOOD ORDERABLES Final Resul t Performing Organization Address [facility] Co de Phone Number [facility] [address] [place] [phone] * Ferritin (03/17/2024 9:48 AM EST) Ferritin 133 20 - 250 ng/mL [facility] Blood Venous blood specimen / Unknown 03/17/2024 9:48 AM EST 03/17/2024 12:16 PM EST us Genia Jarquin MD LAB BLOOD ORDERABLES Final Resul t [facility] [address] [place] [phone] * (ABNORMAL) CBC auto differential (03/17/2024 9:48 AM EST) White Blood Count 6.4 4.8 - 10.8 X10*3/uL [facility] Red Blood Count 4.07(L) 4.60 - 5.80 X10*6/uL [facility] Hemoglobin 13.5(L) 14.0 - 18.0 g/dl [facility] Hematocrit 40.8(L) 42.0 - 52.0 % [facility] Mean Corpuscular Volume 100.2(H) 80.0 - 98.0 fL [facility] Mean Corpuscular Hemoglobin 33.2(H) 27.0 - 33.0 pg [facility] Mean Corpuscular HGB Conc 33.1 31.0 - 36.0 g/dl [facility] Red Cell Distribution Width 12.3 11.0 - 16.0 % [facility] Platelet Count 146(L) 160 - 400 X10*3/uL [facility] Mean Platelet Volume 11.7 9.4 - 12.4 fL [facility] Neutrophils Percent Auto 52.2 45 - 73 % [facility] Imm Gran Pct Auto 0.3 0.0 - 0.4 % [facility] Lymphocytes Percent Auto 38.3 20 - 40 % [facility] Monocytes Percent Auto 7.3 2 - 11 % [facility] Eosinophils Percent Auto 1.6 0 - 4 % [facility] Basophils Percent Auto 0.3 0 - 2 % [facility] NRBC Pct Auto 0.0 0.0 - 0.2 /100WBC [facility] Neutrophils Absolute Auto 3.3 2.0 - 8.3 x10*3/uL [facility] Imm Gran Abs Auto 0.02 0.00 - 0.03 X10*3/uL [facility] Lymphocytes Absolute Auto 2.5 1.2 - 4.9 X10*3/uL [facility] Monocytes Absolute Auto 0.5 0.1 - 1.2 X10*3/uL [facility] Eosinophils Absolute Auto 0.1 0.0 - 0.4 X10*3/uL [facility] Basophils Absolute Auto 0.0 0.0 - 0.2 X10*3/uL [facility] NRBC Abs Auto 0.000 0.0 - 0.012 X10*3/uL [facility] Blood Venous blood specimen / Unknown 03/17/2024 9:48 AM EST 03/17/2024 12:16 PM EST us Genia Jarquin MD LAB BLOOD ORDERABLES Final Resul t [facility] [address] [place] [phone] documented in this encounter Visit Diagnoses Diagnosis Anemia, unspecified type- Primary Stage 3a chronic kidney disease (CMS/HCC) documented in this encounter Additional Health Concerns Assessment Noted Time PHQ-9 Depression Total Score: 2 10/18/19 24 10:09 AM EDT documented as of this encounter Care Teams Road Driver Relationship Specialty Start Date End Date Genia Jarquin MD [address] [place] [phone] PCP - General Family Medicine 02/15/12 Scooby Dwyer, TereseD [address] [place] [address] Pharmacist Internal Medicine 04/23/23 Bev Rojas 09/10/22 documented as of this encounter
--- OUTSIDE RECORDS SUMMARY | 2024-05-01 17:33 | XMS_ITS | Clinical Summary ---
Author Organization [employer] Address [address] [facility] [address] [facility] [address] [place] [address] Care Team Providers Care Veneer Layer Name Role Phone Genia Jarquin MD Primary Care Provider Scooby Dwyer PharmD Unavailable [phone] Allergies Active Allergy Reactions Criticality Noted Date Comments Ciprofloxacin 09/28/2011 Medications * This document contains information received from the source organization and may not represent a complete record from that organization. mirtazapine (Remeron) 45 MG tablet TOME DAPHNE TABLETA POR V A ORAL AT BEDTIME 2 Active LORazepam (Ativan) 1 MG tablet TOME DAPHNE TABLETA TODOS LOS D CUANDO SEA NECESARIO 3 Active Blood Pressure Monitor kit Check blood pressure once daily and as needed 1 kit 3 Active glucose blood (FREESTYLE LITE) test strip Use 1 Strip by to skin route every day 9 Active rosuvastatin (Crestor) 20 MG tablet TOME DAPHNE TABLETA TODOS LOS NAILS 90 tablet 3 4 Active acetaminophen (Tylenol Extra Strength) 500 MG tablet Take 2 tablets by mouth every 8 hours as needed for pain or fever 90 tablet 1 4 Active lisinopril 20 MG tablet TAKE 1 TABLET BY MOUTH EVERY DAY 90 tablet 3 4 Active amLODIPine (Norvasc) 5 MG tabletIndications: Essential hypertension Take 1 tablet by mouth daily 90 tablet 3 4 Active aspirin (Aspirin Low Dose) 81 MG EC tabletIndications: At high risk for cardiovascular disease TAKE 1 TABLET BY MOUTH EVERY MORNING 90 tablet 3 4 Active Active Problems Problem Noted Date Diagnosed Date Syncopal episodes 03/17/2024 Assessment & Plan (03/17/2024 5:18 PM EST): - 01/28/24 Taken to [facility] ED by EMS. Developed seizure-like episode in ED. Given Levetiracetam IV and lorazepam. - Hospitalized for further evaluation, but left AMA - Referring to neurology for EEG and further evaluation - Evaluate with RUBI. Seizure-like activity 03/15/2024 Assessment & Plan (03/17/2024 5:18 PM EST): - 01/28/24, witnessed in ED. Received levetiracetam 1500 mg IV and lorazepam - admitted to [facility], but left AMA - CTA showed no mass, acute hemorrhage / infarct, or flow-limiting stenosis. - Dr. Escalante, neurology applications development consultant, recommended to evaluate for a new-onset seizure with EEG and continue levetiracetam 500 mg bid - referred to Neurology 03/17/24 for EEG, pt agreed with plan. Acute pain of left knee 10/18/2023 Assessment & Plan (10/18/2023 10:28 AM EDT): - evaluate with XR - use acetaminophen 1 gram every 8 hours prn - will refer him to orthopedist because he is interested in steroid injection Varicose veins of both lower extremities with pa in 10/18/2023 Assessment & Plan (10/18/2023 10:29 AM EDT): - recommended appropriate rest and leg elevation - will prescribe compression stockings - if no improvement, will refer him to vascular specialist Allergic rhinitis 01/25/2016 History of smoking 01/25/2016 Assessment & Plan (03/17/2024 5:21 PM EST): - CT showed emphysema; patient does not qualify for lung cancer screening as he quit > 15 years ago Vitamin D deficiency 01/25/2016 Chronic obstructive lung disease 04/29/2015 Gastroesophageal reflux disease 04/29/2015 Malignant tumor of urinary bladder 04/29/2015 Assessment & Plan (03/15/2024 5:43 PM EST): -Followed by urologist. Last cystoscopy and appointment in Jan 2024; given reassurance and advised to follow up in one year Assessment & Plan (07/19/2023 10:38 AM EDT): -Followed by urologist. Last cystoscopy and appointment in Dec 2022; given reassurance and advised to follow up in one year Assessment & Plan (04/08/2023 11:28 AM EST): -Followed by urologist. Last cystoscopy and appointment in Dec 2022; given reassurance and advised to follow up in one year Assessment & Plan (12/13/2022 10:18 AM EDT): -Followed by urologist. Last appt in Dec 2021; given reassurance and advised to follow up in one year Assessment & Plan (09/12/2022 11:12 AM EDT): -Followed by urologist. Last appt in Dec 2021; given reassurance and advised to follow up in one year Assessment & Plan (05/15/2022 10:20 AM EST): -Followed by urologist. Last appt in Dec 2021; given reassurance and advised to follow up in one year Essential hypertension 12/31/2014 Assessment & Plan (03/17/2024 5:19 PM EST): -Goal BP < 130/80 per ACC/AHA guideline (Treatment threshold >= 130 ) -BP at within acceptable range, slightly elevated 2nd measurement -Continue working on lifestyle modifications -Continue monitoring home BP. -Continue current medications: Lisinopril 20 mg daily; amlodipine 5 mg daily -Treatment Hx: hydrochlorothiazide was discontinued due to EMILY / CKD. Assessment & Plan (07/19/2023 10:37 AM EDT): -Goal BP < 140/90 per JNC-8 and < 130/80 per ACC/AHA guideline (Treatment threshold >= 130 ) -BP at within acceptable range -Continue working on lifestyle modifications -Continue current medications: Lisinopril 20 mg daily; amlodipine 5 mg daily -Treatment Hx: hydrochlorothiazide was discontinued due to EMILY / CKD. -Follow up in 3-6 mo, sooner if any problem arises Assessment & Plan (04/08/2023 11:27 AM EST): -Goal BP < 140/90 per JNC-8 and < 130/80 per ACC/AHA guideline (Treatment threshold >= 130 ) -BP at within acceptable range -Continue working on lifestyle modifications -Continue current medications: Lisinopril 20 mg daily; amlodipine 5 mg daily -Treatment Hx: hydrochlorothiazide was discontinued due to EMILY / CKD. -Follow up in 3-6 mo, sooner if any problem arises Assessment & Plan (12/13/2022 10:16 AM EDT): -Goal BP < 140/90 per JNC-8 and < 130/80 per ACC/AHA guideline (Treatment threshold >= ) - BP not at goal -Treatment Hx: hydrochlorothiazide was discontinued due to EMILY / CKD. -Continue working on lifestyle modifications -Continue current medications: Lisinopril 20 mg daily; amlodipine 5 mg daily -Follow up in 3-6 mo, sooner if any problem arises Assessment & Plan (09/12/2022 11:12 AM EDT): -Goal BP < 140/90 per JNC-8 and < 130/80 per ACC/AHA guideline (Treatment threshold >= ) - BP not at goal -Treatment Hx: hydrochlorothiazide was discontinued due to EMILY / CKD. -Continue working on lifestyle modifications -Continue current medications: Lisinopril 20 mg daily; amlodipine 5 mg daily -Follow up in 3-6 mo, sooner if any problem arises Assessment & Plan (05/15/2022 3:51 AM EST): -Goal BP < 140/90 per JNC-8 and < 130/80 per ACC/AHA guideline (Treatment threshold >= ) -Treatment Hx: hydrochlorothiazide was discontinued due to EMILY / CKD. -Continue working on lifestyle modifications -Continue current medications: Lisinopril 20 mg daily; amlodipine 5 mg daily -Follow up in 3-6 mo, sooner if any problem arises Generalized anxiety disorder 12/31/2014 Assessment & Plan (03/17/2024 5:22 PM EST): - GAD7 score 2 on 03/17/24 - Continue current treatment plan per behavioral health service provider Major depression 10/14/2012 Assessment & Plan (03/17/2024 5:21 PM EST): - Hx psychiatric hospitalization in 1998 and 1999 for MDD with SI/SA. - Hx Suicide attempt x 4 - Last hospitalization in [facility] in August 2022 - Current [facility] provider: Moses Lr - Current medications: Mirtazapine 45 mg at bedtime and lorazepam 1 mg prn - PHQ9 score 0 and GAD7 score 2 on 03/17/24 - Continue current treatment plan per behavioral health service provider Assessment & Plan (07/19/2023 10:38 AM EDT): - Hx psychiatric hospitalization in 1998 and 1999 for MDD with SI/SA. - Hx Suicide attempt x 4 - Recent hospitalization at [facility] in August 2022 - Current [facility] provider: Moses Lr - Current medications: Mirtazapine 45 mg at bedtime and lorazepam 1 mg prn Assessment & Plan (12/13/2022 10:16 AM EDT): - Hx psychiatric hospitalization in 1998 and 1999 for MDD with SI/SA. - Hx Suicide attempt x 4 - Recent hospitalization at [facility] in August 2022 - Current [facility] provider: Moses Lr - Current medications: Mirtazapine 45 mg at bedtime and lorazepam 1 mg prn Assessment & Plan (09/22/2022 11:17 AM EDT): Assessment: Patient with history of depression (Depressed mood every day and irritability) and 4 suicide attempts (most recent attempt August 2022). Symptoms in the context of biopsychosocial stressor of family and relationship stress. Patient will benefit from continued OP therapy with [facility]. At this time Hesham Ochoa meets criteria for Visit Diagnoses: Problem List Items Addressed This Visit None Patient ready to address current needs Yes Strengths include access to treatment and motivation for change PLAN: 1. Follow up with [facility]: Not recommended for follow-up 2. Patient goal is to continue OP therapy and explore additional coping mechanisms 3. Behavioral Recommendations a. OP therapy b. Medication management c. Explore additional coping mechanisms Assessment & Plan (09/12/2022 5:54 AM EDT): - Hx psychiatric hospitalization in 1998 and 1999 for MDD with SI/SA. - Hx Suicide attempt x 4 - Recent hospitalization at [facility] in August 2022 - Current [facility] provider: Moses Lr - Current medications: Mirtazapine 45 mg at bedtime and lorazepam 1 mg prn Diabetes mellitus type 2, controlled 10/14/2012 Assessment & Plan (03/17/2024 9:06 AM EST): Dx 2011 -Hgb A1c 6.3% on 10/18/23 -Hgb A1c 5.9% on 03/17/24 -Discontinued metformin in Dec 2018 since A1C has been < 6% without medication. -Continue working on lifestyle modifications. -Check FBG few times a week and as needed when feeling sick. Reviewed and updated diabetes care guidelines. Last eye exam: 07/02/23 Last comprehensive foot exam: 07/19/23 Last microalbumin test: 05/31/23 no microalbuminuria Last lipid profile: 10/18/23 Last dental exam: Immunizations: Up to date Assessment & Plan (10/18/2023 10:26 AM EDT): Dx 2011 --Hgb A1c 6.3% on 10/18/23 -Discontinued metformin in Dec 2018 since A1C has been < 6% without medication. -Continue working on lifestyle modifications. -Check FBG few times a week and as needed when feeling sick. Reviewed and updated diabetes care guidelines. Last eye exam: 07/02/23 Last comprehensive foot exam: 07/19/23 Last microalbumin test: 05/31/23 no microalbuminuria Last lipid profile: 09/12/22 TC 188; TG 79; HDL 54; LDL 116 Last dental exam: Immunizations: Up to date Assessment & Plan (07/19/2023 10:37 AM EDT): Dx 2011 --Hgb A1c 5.9% on 04/04/23 -Discontinued metformin in Dec 2018 since A1C has been < 6% without medication. -Continue working on lifestyle modifications. -Check FBG few times a week and as needed when feeling sick. Reviewed and updated diabetes care guidelines. Last eye exam: June 28, [address] Caldwell for bilateral cataract sx Last comprehensive foot exam: 07/19/23 Last microalbumin test: 05/31/23 no microalbuminuria Last lipid profile: 09/12/22 TC 188; TG 79; HDL 54; LDL 116 Last dental exam: Immunizations: Up to date Assessment & Plan (04/08/2023 11:29 AM EST): Dx 2011 --Hgb A1c 5.7% on 09/12/22, improving from 6.2% on 05/15/22 -Discontinued metformin in Dec 2018 since A1C has been < 6% without medication. -Continue working on lifestyle modifications. -Check FBG few times a week and as needed when feeling sick. Reviewed and updated diabetes care guidelines. Last eye exam: June 28, [address] Caldwell for bilateral cataract sx Last comprehensive foot exam: 12/13/22 Last microalbumin test: 04/18/19 no microalbuminuria Last lipid profile: 09/12/22 TC 188; TG 79; HDL 54; LDL 116 Last dental exam: Immunizations: Up to date Assessment & Plan (12/13/2022 10:15 AM EDT): Dx 2011 --Hgb A1c 5.7% on 09/12/22, improving from 6.2% on 05/15/22 -Discontinued metformin in Dec 2018 since A1C has been < 6% without medication. -Continue working on lifestyle modifications. -Check FBG few times a week and as needed when feeling sick. Reviewed and updated diabetes care guidelines. Last eye exam: June 28, [address] Caldwell for bilateral cataract sx Last comprehensive foot exam: 12/13/22 Last microalbumin test: 04/18/19 no microalbuminuria Last lipid profile: 09/12/22 TC 188; TG 79; HDL 54; LDL 116 Last dental exam: Immunizations: Up to date Assessment & Plan (09/12/2022 11:11 AM EDT): Dx 2011 --Hgb A1c 6.2% on 05/15/22, slight increase from 5.9% 12/06/21 -Discontinued metformin in Dec 2018 since A1C has been < 6% without medication. -Continue working on lifestyle modifications. -Check FBG few times a week and as needed when feeling sick. Reviewed and updated diabetes care guidelines. Last eye exam: June 28, [address] Caldwell for bilateral cataract sx Last comprehensive foot exam: 12/06/21 Last microalbumin test: 04/18/19 no microalbuminuria Last lipid profile: 11/29/20 TC 149; TG 112; HDL 49; LDL 79 Last dental exam: Immunizations: Up to date Assessment & Plan (05/15/2022 10:21 AM EST): Dx 2011 --Hgb A1c 6.2% on 05/15/22, slight increase from 5.9% 12/06/21 -Discontinued metformin in Dec 2018 since A1C has been < 6% without medication. -Continue working on lifestyle modifications. -Check FBG few times a week and as needed when feeling sick. Reviewed and updated diabetes care guidelines. Last eye exam: June 28, [address] Caldwell for bilateral cataract sx Last comprehensive foot exam: 12/06/21 Last microalbumin test: 04/18/19 no microalbuminuria Last lipid profile: 11/29/20 TC 149; TG 112; HDL 49; LDL 79 Last dental exam: Immunizations: Up to date Dyslipidemia 10/14/2012 Assessment & Plan (03/15/2024 5:51 PM EST): Current medication: Rosuvastatin 20 mg daily (high-intensity) Most recent lipid profile: Last lipid profile: 10/18/23 Continue working on lifestyle modification. Repeat fasting lipid profile annually. Assessment & Plan (07/19/2023 10:39 AM EDT): Current medication: Rosuvastatin 20 mg daily Most recent lipid profile: Last lipid profile: 09/12/22 TC 188; TG 79; HDL 54; LDL 116 According to 2013 ACC/AHA guideline, 10-year ASCVD risk is 31.1 % and high- intensity statin therapy is recommended. We will continue current medication at this time. Continue working on lifestyle modification. Repeat fasting lipid profile annually. Assessment & Plan (04/08/2023 11:29 AM EST): Current medication: Rosuvastatin 20 mg daily Most recent lipid profile: Last lipid profile: 09/12/22 TC 188; TG 79; HDL 54; LDL 116 According to 2013 ACC/AHA guideline, 10-year ASCVD risk is 31.1 % and high- intensity statin therapy is recommended. We will continue current medication at this time. Continue working on lifestyle modification. Repeat fasting lipid profile annually. Assessment & Plan (12/13/2022 10:15 AM EDT): Current medication: Crestor 20 mg daily Most recent lipid profile: Last lipid profile: 09/12/22 TC 188; TG 79; HDL 54; LDL 116 According to 2013 ACC/AHA guideline, 10-year ASCVD risk is 31.1 % and high- intensity statin therapy is recommended. We will continue current medication at this time. Continue working on lifestyle modification. Repeat fasting lipid profile annually. Assessment & Plan (09/12/2022 11:11 AM EDT): Current medication: Crestor 20 mg daily Most recent lipid profile: 11/29/20 TC 149; TG 112; HDL 49; LDL 79 According to 2013 ACC/AHA guideline, 10-year ASCVD risk is 31.1 % and high- intensity statin therapy is recommended. We will continue current medication at this time. Continue working on lifestyle modification. Repeat fasting lipid profile annually. Assessment & Plan (05/20/2022 6:09 PM EST): Current medication: Crestor 20 mg daily Most recent lipid profile: 11/29/20 TC 149; TG 112; HDL 49; LDL 79 According to 2013 ACC/AHA guideline, 10-year ASCVD risk is 31.1 % and high- intensity statin therapy is recommended. We will continue current medication at this time. Continue working on lifestyle modification. Repeat fasting lipid profile annually. Resolved Problems Problem Noted Date Diagnosed Date Resolved Date Stage 3a chronic kidney disease 03/20/2017 03/17/2024 Encounters Date Type Department Care Team Description 04/25/2024 Telephone [facility] [address] [place] [id number] Aleshia Barajas MA may recall 03/17/2024 9:00 AM EST Office Visit [facility] [address] [place], [place] [address] [address] Genia Jarquin MD Seizure-like activity ([facility]) (Primary Dx); Essential hypertension; Malignant neoplasm of urinary bladder, unspecified site ([facility]); Controlled type 2 diabetes mellitus without complication, without long-term current use of insulin ([facility]); Episode of recurrent major depressive disorder, unspecified depression episode severity ([facility]); Generalized anxiety disorder; Dyslipidemia; Encounter for immunization; Syncope, unspecified syncope type; Thrombocytopenia ([facility]); History of smoking 03/17/2024 Telephone [facility] [address] [place], [place] [address] [address] Genia Jarquin MD 03/17/2024 Orders Only [facility] [address] [place] [address] [place] [address] Genia Jarquin MD 03/17/2024 Travel 03/05/2024 Refill [facility] [address] [place] [address] Genia Jarquin MD At high risk for cardiovascular disease 02/26/[address] [address] Aleshia Barajas MA chart prep 02/05/[address] [address] Argelia Cintron RN 02/05/2024 Travel 01/30/[address] [address] Genia Jarquin MD No Show from Last 3 Months Immunizations Name Administration Dates Next Due Hep B, adult 09/16/2018,08/08/2016,07/10/2016 Influenza Quadrivalent Adjuvanted 12/11/2022 Influenza injectable quadriv alent IIV4 with preservative 01/25/2016 Influenza injectable quadriv alent preservative free 03/07/2021,01/12/2020,04/28/2019,12/31 Influenza, High Dose Seasona l, Preservative Free 03/17/2024,12/24/2017,12/25/2016 Influenza, IIV3, injectable 03/03/2014, 0,03/10/2009 Influenza, Split (incl. zachariah fied surface antigen) 01/30/2013,04/10/2012 Pfizer Covid-19 Vaccine 12+ 03/17/2024, 4,06/24/2021 Pneumococcal Conjugate PCV 13 09/07/2014 Pneumococcal Polysaccharide PPSV23 11/11/2010 RSV Bivalent 05/31/2023 TD (adult), 2 Lf tetanus tox oid, preservative free, adsorbed 09/25/2020,04/28/2019 Tdap 03/10/2009 Zoster, Recombinant 08/30/2023,05/31/2023 Zoster, live 09/07/2014 Family History Medical History Relation Name Comments Coronary artery disease Mother Diabetes type II Mother Hypertension Mother Relation Name Status Comments Mother Social History Tobacco Use Types Packs/Day Years Used Date Smoking Tobacco: Never Passive Smoke Exposure: Never Smokeless Tobacco: Never Tobacco Cessation:Counseling Given: Not Answered Alcohol Use Standard Drinks/Week Comments Never 0 (1 standard drink = 0.6 oz pur e alcohol) Depression Answer Date Recorded Patient Health Questionnaire-9 Score 0 03/17/2024 Patient Health Questionnaire-9 Score 0 03/17/2024 Last PHQ-9: Questionnaire Data Not on file 1 05/18/2023 Housing Stability Answer Date Recorded What is your housing situation today? I have meryteo llamas 10/18/[address] you [...] Answer Date Recorded Patient Health Questionnaire-2 Score 0 03/17/2024 Internet Access Answer Date Recorded Internet Access Q1 Yes 12/03/2023 Internet Access Q2 Not on file 12/03/2023 Sex and Gender Information Value Date Recorded Sex Assigned at Male 01/30/2022 10:15 AM EDT Legal Sex Male 10:15 AM EDT Gender Identity Male 10/18/2023 10:00 AM EDT Sexual Orientation Straight 10/18/2023 10 :00 AM EDT Last Filed Vital Signs Vital Sign Reading Time Taken Comments Blood Pressure 140/68 03/17/2024 9:12 AM EST Pulse 80 03/17/2024 9:03 AM EST Temperature 36.1 ??C (96.9 ??F) 03/17/2024 9:03 AM ES T Respiratory Rate 16 03/17/2024 9:03 AM EST Oxygen Saturation 97% 10/18/2023 10:08 AM EDT Inhaled Oxygen Concentration - - Weight 52.9 kg (116 lb 9.6 oz) 03/17/2024 9:03 A M EST Height 154.7 cm (5' 0.89 ) 03/17/2024 9:03 AM ES T Body Mass Index 22.11 03/17/2024 9:03 AM EST Plan of Treatment Health Maintenance Due Date Last Done Comments Diabetes: Urine Protein Screening 05/30/2024 05/31/2023, 08/25/2021, 04/18/2019 Diabetes: Foot Exam 07/18/2024 07/19/2023, 07/19/2023, 07/19/2023, Additional history exists Diabetes: Hemoglobin A1C 09/15/2024 024, 10/18/2023, 04/04/2023, Additional history exists SDOH Screening 10/17/2024 10/18/2023 Alcohol/Substance Use Screening 03/17/2025 03/17/2024 Depression Screening 03/17/2025 03/17/2024, 03/17/20 24 Lipid Panel 03/17/2025 03/17/2024, 0711/2023, 09/12/2022, Additional history exists Tobacco Screening 03/17/2025 03/17/2024 Eye Exam 07/01/2025 07/02/2023 DTaP/Tdap/Td Vaccines (4 - Td or Tdap) 09/25/2030 09/25/2020, 04/28/2019, 03/10/2009 Pneumococcal Vaccine: 50+ Years Completed 09/07/2014, 08/24/2014, 11/11/2010 Hepatitis B Vaccines Completed 09/16/2018, 08/08/2016, 07/10/2016 RSV Patients and Patients Aged 60 years or older Completed 05/31/2023 Zoster Vaccines Completed 08/30/2023, 05/04, 09/07/2014 COVID-19 Vaccine Completed 03/17/2024, 06/2023, 06/24/2021, Additional history exists Influenza Vaccine Completed 03/17/2024, , 03/07/2021, Additional history exists HIB Vaccines Aged Out No longer eligi ble based on patient's age to complete this topic HPV Vaccines Aged Out No longer eligi ble based on patient's age to complete this topic Hepatitis A Vaccines Aged Out No long er eligible based on patient's age to complete this topic Hepatitis C Screening Discontinued IPV Vaccines Aged Out No longer eligi ble based on patient's age to complete this topic Meningococcal Vaccine Aged Out No noemy natasha eligible based on patient's age to complete this topic RSV under 20 months Aged Out No longe r eligible based on patient's age to complete this topic Rotavirus Vaccines Aged Out No longer eligible based on patient's age to complete this topic Goals Goal Patient Goal Type Associated Problems Recent Progress Patient-Stated? Author Blood Pressure < 140/90 Blood Pressure 140/68(2023 9:12 AM EST) No Scooby Dwyer, Lissette Hemoglobin A1c < 7 Result Component 5.9( 9:05 AM EST) No Scooby Dwyer PharmD Procedures Procedure Name Priority Date/Time Associated Diagnosis Comments HOLD LAVENDER - POSSIBLE HEMATOLOGY Routine 03/17/2024 9:48 AM EST RETICULOCYTE COUNT Routine 03/17/2024 9: 48 AM EST Anemia, unspecified type VITAMIN B12/FOLATE, SERUM PANEL Routine 03/17/2024 9:48 AM EST Anemia, unspecified type PATHOLOGIST REVIEW - CBC Routine 03/17/2024 9:48 AM EST Anemia, unspecified type IRON AND TOTAL IRON BINDING CAPACITY Routine 03/17/2024 9:48 AM EST Anemia, unspecified type FERRITIN Routine 03/17/2024 9:48 AM EST Anemia, unspecified type CBC WITH AUTO DIFFERENTIAL Routine 03/17/2024 9:48 AM EST Anemia, unspecified type COMPREHENSIVE METABOLIC PANEL Routine 03/17/2024 9:48 AM EST Dyslipidemia LIPID PANEL WITH REFLEX TO DIRECT LDL Routine 03/17/2024 9:48 AM EST Controlled type 2 diabetes mellitus without complication, without long-term current use of insulin ([facility]) Dyslipidemia POCT GLYCOSYLATED HEMOGLOBIN (HGB A1C) Routine 03/17/2024 9:05 AM EST Controlled type 2 diabetes mellitus without complication, without long-term current use of insulin ([facility]) POCT GLUCOSE Routine 03/17/2024 9:04 AM EST Controlled type 2 diabetes mellitus without complication, without long-term current use of insulin ([facility]) DIABETES EYE EXAM Routine 07/02/2023 ALBUMIN, RANDOM URINE W/CREATININE Routine 05/31/2023 12:01 PM EST from Last 3 Months or Most Recently Relevant to Health Maintenance Results * Hold Lavender - Possible Hematology (03/17/2024 9:48 AM EST) Hold Lavender - Possible Hematololgy SEE NOTE [facility] Comment:Specimen will be hel d untested for 8 hours. Call Hematologyif testing is desired. 03/17/2024 9:48 AM EST 03/17/2024 12:28 PM EST Genia Jarquin MD HISTORICAL/NON ORDERABLE LABS Fi nal Result Performing Organization Address [facility] Co de Phone Number [facility] [address] [place] [phone] * Pathologist Review - CBC (03/17/2024 9:48 AM EST) Pathologist Review - CBC SEE NOTE [facility] Comment:Normochromic macrocy tic anemia; occasional echinocytes arepresent. The differential includes liver or thyroiddisease, alcohol, monoclonal proteins and myelodysplasticsyndrome, among other etiologies.- Ron Neely M.D. Pathology Blood Venous blood specimen / Unknown 03/17/2024 9:48 AM EST 03/17/2024 12:16 PM EST Genia Jarquin MD LAB BLOOD ORDERABLES Final Resul t Performing Organization Address [facility] Co de Phone Number [facility] [address] [place] [phone] * Vitamin B12 (Cobalamin) and Folate Panel, Serum (03/17/2024 9:48 AM EST) Vitamin B12 334 200 - 900 pg/mL [facility] Comment:NORMAL 200-900 PG/ML INDETERMINATE 160-199 PG/ML DEFICIENT < 160 PG/ML Folate 13.5 > or = 4.0 ng/mL [facility] Comment:Reference Values:> o r = 4.0 ng/mL< 4.0 ng/mL suggests folate deficiency Methotrexate, aminopterin and folinic acid(leucovorin) are chemotherapeutic agents whose molecularstructures are similar to folate; therefore, the Architectfolate assay cannot be used for patients using these drugs. Blood 03/17/2024 9:48 AM EST 03/17/2024 12:16 PM EST Genia Jarquin MD LAB BLOOD ORDERABLES Final Resul t Performing Organization Address [facility] de Phone Number [facility] [address] [place] [phone] * Lipid Panel with Reflex to Direct LDL (03/17/2024 9:48 AM EST) Triglycerides 76 <150 mg/dL [facility] Comment:Desirable Triglyceri de: less than 150 mg/dLBorderline High Triglyceride 150-199 mg/dLHigh Triglyceride: 200-499 mg/dLVery High Triglyceride: greater than or equal to 5OO mg/dL Cholesterol 136 <200 mg/dL [facility] Comment:Desirable Cholestero l: less than 200 mg/dLBorderline High Cholesterol: 200-239 mg/dLHigh Cholesterol: greater than 239 mg/dL LDL Cholesterol Calculated 67 <100 mg/dL [facility] Comment:Desirable LDL: less than 100 mg/dLNear Optimal/Above Optimal LDL: 110- 129 mg/dLBorderline High LDL: 130-159 mg/dLHigh LDL: 160-189 mg/dLVery High LDL: greater than or equal to 190 mg/dL HDL Cholesterol 54 >40 mg/dL [facility] Comment:Desirable HDL: great er than 40 mg/dL Note: This HDL assay may give artificially low results in patients with liver disease. Blood 03/17/2024 9:48 AM EST 03/17/2024 12:16 PM EST Genia Jarquin MD LAB BLOOD ORDERABLES Final Resul t Performing Organization Address [facility] Co de Phone Number [facility] [address] [place] [phone] * (ABNORMAL) CBC auto differential (03/17/2024 9:48 AM EST) White Blood Count 6.4 4.8 - 10.8 X10*3/uL [facility] Red Blood Count 4.07(L) 4.60 - 5.80 X10*6/uL [facility] Hemoglobin 13.5(L) 14.0 - 18.0 g/dl [facility] Hematocrit 40.8(L) 42.0 - 52.0 % [facility] Mean Corpuscular Volume 100.2(H) 80.0 - 98.0 fL [facility] Mean Corpuscular Hemoglobin 33.2(H) 27.0 - 33.0 pg [facility] Mean Corpuscular HGB Conc 33.1 31.0 - 36.0 g/dl [facility] Red Cell Distribution Width 12.3 11.0 - 16.0 % [facility] Platelet Count 146(L) 160 - 400 X10*3/uL [facility] Mean Platelet Volume 11.7 9.4 - 12.4 fL [facility] Neutrophils Percent Auto 52.2 45 - 73 % [facility] Imm Gran Pct Auto 0.3 0.0 - 0.4 % [facility] Lymphocytes Percent Auto 38.3 20 - 40 % [facility] Monocytes Percent Auto 7.3 2 - 11 % [facility] Eosinophils Percent Auto 1.6 0 - 4 % [facility] Basophils Percent Auto 0.3 0 - 2 % [facility] NRBC Pct Auto 0.0 0.0 - 0.2 /100WBC [facility] Neutrophils Absolute Auto 3.3 2.0 - 8.3 x10*3/uL [facility] Imm Gran Abs Auto 0.02 0.00 - 0.03 X10*3/uL [facility] Lymphocytes Absolute Auto 2.5 1.2 - 4.9 X10*3/uL [facility] Monocytes Absolute Auto 0.5 0.1 - 1.2 X10*3/uL [facility] Eosinophils Absolute Auto 0.1 0.0 - 0.4 X10*3/uL [facility] Basophils Absolute Auto 0.0 0.0 - 0.2 X10*3/uL [facility] NRBC Abs Auto 0.000 0.0 - 0.012 X10*3/uL [facility] Blood Venous blood specimen / Unknown 03/17/2024 9:48 AM EST 03/17/2024 12:16 PM EST Genia Jarquin MD LAB BLOOD ORDERABLES Final Resul t Performing Organization Address [facility] Co de Phone Number [facility] [address] [place] [phone] * Iron And Total Iron Binding Capacity (03/17/2024 9:48 AM EST) Iron 98 45 - 160 mcg/dL [facility] Total Iron Binding Capacity 235 228 - 428 mcg/dL [facility] Percent Iron Saturation 42 15 - 50 % [facility] Unsaturated Iron Binding 137 ug/dL [facility] Blood Venous blood specimen / Unknown 03/17/2024 9:48 AM EST 03/17/2024 12:16 PM EST Genia Jarquin MD LAB BLOOD ORDERABLES Final Resul t Performing Organization Address [facility] Co de Phone Number [facility] [address] [place] [phone] * (ABNORMAL) Reticulocyte Count (03/17/2024 9:48 AM EST) Pathologist [facility] [place] Reticulocytes Absolute 0.064 0.026 - 0.095 X10*6/uL [facility] Immature Retic Fraction 6.9 2.3 - 13.4 % [facility] Retic HGB Equivalent 36.7(H) 30.0 - 35.0 pg [facility] Reticulocyte Percent 1.6 0.5 - 1.8 % [facility] Blood Venous blood specimen / Unknown 03/17/2024 9:48 AM EST 03/17/2024 12:16 PM EST Genia Jarquin MD LAB BLOOD ORDERABLES Final Resul t Performing Organization Address [facility] Co de Phone Number [facility] [address] [place] [phone] * Ferritin (03/17/2024 9:48 AM EST) Ferritin 133 20 - 250 ng/mL [facility] Blood Venous blood specimen / Unknown 03/17/2024 9:48 AM EST 03/17/2024 12:16 PM EST us Genia Jarquin MD LAB BLOOD ORDERABLES Final Resul t [facility] [address] [place] [phone] * (ABNORMAL) Comprehensive Metabolic Panel (03/17/2024 9:48 AM EST) Sodium 141 135 - 145 mmol/L [facility] Potassium 4.1 3.3 - 5.1 mmol/L [facility] Chloride 106 96 - 108 mmol/L [facility] Carbon Dioxide 28 22 - 29 mmol/L [facility] Anion Gap 11(L) 12 - 20 [facility] Urea Nitrogen (BUN) 12 9 - 16 mg/dL [facility] Creatinine, Serum 1.09 0.5 - 1.4 mg/dL [facility] Estimated Glomerular Filt Rate >60 [facility] Comment:Chronic Kidney Disea se: Estimated GFR < 60 mL/min/[id number] Kidney Disease: Estimated GFR < 15 mL/min/1.73m2 Glucose 140(H) 60 - 115 mg/dL [facility] Calcium 8.9 8.4 - 10.2 mg/dL [facility] Bilirubin, Total 0.5 0.0 - 1.0 mg/dL [facility] Aspartate Amino Transferase 33 5 - 37 U/L [facility] Alanine Aminotransferase 29 0 - 40 U/L [facility] Total Protein 7.6 6.5 - 8.0 g/dL [facility] Albumin Level 4.4 3.5 - 5.0 g/dL [facility] Alkaline Phosphatase 41 39 - 117 U/L [facility] Blood Venous blood specimen / Unknown 03/17/2024 9:48 AM EST 03/17/2024 12:16 PM EST Genia Jarquin MD LAB BLOOD ORDERABLES Final Resul t [facility] [address] [place] [phone] * POCT glycosylated hemoglobin (Hgb A1c) (03/17/2024 9:05 AM EST) Hemoglobin A1C 5.9 4.0 - 6.0 % QC Media Lot # [id number] Lot# Expiration Date Blood Capillary blood specimen / Unknown 03/17/2024 9:05 AM EST Genia Jarquin MD POINT OF CARE TEST ENTER/EDIT OR DERABLES Final Result * POCT glucose manually resulted (03/17/2024 9:04 AM EST) Glucose Blood, POC 150 60 - 200 mg/dL [employer] Lot # [id number] Lot# Expiration Date 419 Blood Capillary blood specimen / Unknown 03/17/2024 9:04 AM EST Genia Jarquin MD POINT OF CARE TEST ENTER/EDIT OR DERABLES Final Result * Hm Diabetes Eye Exam (07/02/2023) Eye Exam Normal Normal 07/02/2023 Onur Núñez MD HEALTH MAINTENANCE Final Result * Albumin, Random Urine W/Creatinine (05/31/2023 12:01 PM EST) Creatinine, Urine 27.28 mg/dL [facility] Microalbumin Urine <5.0 mg/L [facility] Microalbum Creatinine Ratio Ur TNP <30 ug/mg cr [facility] Comment:Unable to calculate albumin/creatinine ratio due to lowmicroalbumin or creatinine result. 05/31/2023 12:0 1 PM EST 05/31/2023 1:00 PM EST us Genia Jarquin MD LAB URINE ORDERABLES Final Resul t [facility] [address] [place] [phone] from Last 3 Months or Most Recently Relevant to Health Maintenance Insurance [facility] [employer]AND[employer] MEDICARE [address] [place] [id number] Care Teams Veneer Layer Relationship Specialty Start Date End Date Genia Jarquin MD [address] [place] [phone] PCP - General Family Medicine 02/15/12 Scooby Dwyer, PharmD [address] [place] [phone] Pharmacist Internal Medicine 04/23/23 Bev Rojas 09/10/22
--- OUTSIDE RECORDS SUMMARY | 2024-05-01 17:33 | XMS_ITS | Clinical Summary ---
Author Organization Unknown Care Team Providers Care Collection Analyst Name Role Phone EUFEMIA ULLOA, TIFFANY Unavailable Unavailable NANCI OSMAN, DANIELA Unavailable Unavailable Payers Payer Name Policy Type Policy Number Effective Date Expira tion Date [place] [id number] ON DEMAND MEDICARE - [facility] BILLING - ABN [id number] Problems Condition Name Condition Details Condition Category Status Onset Date Resolution Date Last Treatment Date Treating Clinician Comments MAJOR DEPRESSIVE DISORDER, RECURRENT, MODERATE Active 09-03 00:00: 00 ESSENTIAL (PRIMARY) HYPERTENSION Active 09-09 00:00: 00 Allergies, Adverse Reactions, Alerts Allergy Name Allergy Type Status Severity Reaction(s) Onset Date Inactive Date Treating Clinician Comments CIPROFLOXACI N PILL Propensity to adverse reactions Active 09-10 21:59: 52 Medications Ordered Medication Name Filled Medication Name Start Date Stop Date Current Medication? Ordering Clinician Indication Dosage Frequency Signature (SIG) Comments Components lorazepam 1 mg tablet 08-26 00:00: 00 Yes [id number] 1 mg ONCE A DAY NEEDED 1 mg ONCE A DAY NEEDED (route: oral) Med Classific ation: Central Nervous System Agents mirtazapine 45 mg tablet 08-26 00:00: 00 Yes [id number] 45 mg AT BEDTIME 45 mg AT BEDTIME (route: oral) Med Classific ation: Central Nervous System Agents amlodipine 5 mg tablet 08-17 00:00: 00 Yes [id number] 5 mg DAILY 5 mg DEBORAH Y (route: oral) Med Classific ation: Cardiovas cular Therapy Agents aspirin 81 mg tablet,yenny yed release 09-09 00:00: 00 Yes [id number] 81 mg DAILY 81 mg DAILY (route: oral) Med Classific ation: Hematolog ical Agents lisinopril 20 mg tablet 09-10 00:00: 00 Yes [id number] 20 mg DAILY 20 mg DAILY (route: oral) Med Classific ation: Cardiovas cular Therapy Agents Vital Signs Vital Name Observation Time Observation Value Commen ts Temperature 2024-04-30 14:37:00.000 97.9 [degF] Temperature 2024-04-29 10:14:00.000 98 [degF] Temperature 2024-04-25 11:33:00.000 98 [degF] Temperature 2024-04-24 10:21:00.000 98 [degF] Temperature 2024-04-23 10:05:00.000 98 [degF] Temperature 2024-04-22 11:21:00.000 97.5 [degF] Temperature 2024-04-21 10:43:00.000 98 [degF] Temperature 2024-04-18 12:30:00.000 97.9 [degF] Temperature 2024-04-17 11:40:00.000 97.5 [degF] Temperature 2024-04-16 11:02:00.000 98.1 [degF] Temperature 2024-04-15 10:45:00.000 98.1 [degF] Temperature 2024-04-14 13:19:00.000 97.5 [degF] Temperature 2024-04-11 10:13:00.000 98 [degF] Temperature 2024-04-10 10:45:00.000 97.8 [degF] Temperature 2024-04-09 13:23:00.000 97.5 [degF] Temperature 2024-04-08 10:59:00.000 98 [degF] Temperature 2024-04-07 14:34:00.000 98.1 [degF] Temperature 2024-04-05 09:03:00.000 97.5 [degF] Temperature 2024-04-04 23:47:00.000 97.5 [degF] Temperature 2024-04-04 05:46:00.000 97.9 [degF] Temperature 2024-04-02 11:21:00.000 97 [degF] Temperature 2024-04-01 16:21:00.000 97.5 [degF] Temperature 2024-03-31 11:01:00.000 98 [degF] Temperature 2024-03-29 09:51:00.000 97.5 [degF] Temperature 2024-03-28 10:51:00.000 97.6 [degF] Temperature 2024-03-27 10:11:00.000 98 [degF] Temperature 2024-03-26 10:10:00.000 97.5 [degF] Temperature 2024-03-25 10:39:00.000 98 [degF] Temperature 2024-03-24 13:43:00.000 97.5 [degF] Temperature 2024-03-22 09:37:00.000 97.5 [degF] Temperature 2024-03-21 10:55:00.000 98.1 [degF] Temperature 2024-03-20 10:03:00.000 97.9 [degF] Temperature 2024-03-18 03:03:00.000 98.1 [degF] Temperature 2024-03-15 10:03:00.000 97.9 [degF] Temperature 2024-03-14 10:32:00.000 98 [degF] Temperature 2024-03-13 13:05:00.000 97.5 [degF] Temperature 2024-03-12 08:58:00.000 97.5 [degF] Temperature 2024-03-11 10:36:00.000 97.5 [degF] Temperature 2024-03-10 12:57:00.000 97.9 [degF] Temperature 2024-03-08 10:20:00.000 97.9 [degF] Temperature 2024-03-07 15:45:00.000 97.8 [degF] Temperature 2024-03-06 11:30:00.000 98 [degF] Temperature 2024-03-05 12:17:00.000 97.5 [degF] Temperature 2024-03-04 12:00:00.000 97.5 [degF] Temperature 2024-03-03 17:02:00.000 97.6 [degF] Systolic Blood Pressure 2024-03-03 17:02:00.000 120 mm [Hg] Diastolic Blood Pressure 2024-03-03 17:02:00.000 66 mm [Hg] Plan of Treatment Planned Activity Planned Date Details Comments Future Scheduled Test SKILLED NU RSE TO EVALUATE PATIENT, IDENTIFY PRIMARY AND CO-MORBID CONDITIONS CODED PER CODING GUIDELINES, AND DEVELOP PATIENT SPECIFIC PLAN OF CARE THAT INCLUDES PATIENT GOAL FOR HOME HEALTH. [code = SKILLED NURSE TO EVALUATE PATIENT, IDENTIFY PRIMARY AND CO-MORBID CONDITIONS CODED PER CODING GUIDELINES, AND DEVELOP PATIENT SPECIFIC PLAN OF CARE THAT INCLUDES PATIENT GOAL FOR HOME HEALTH.] Future Scheduled Test SKILLED NU RSE FOR MEDICATION ADMINISTRATION PER MEDICATION LIST TO BE PERFORMED DAILY [code = SKILLED NURSE FOR MEDICATION ADMINISTRATION PER MEDICATION LIST TO BE PERFORMED DAILY ] Future Scheduled Test SKILLED NU RSE TO PRE-POUR MEDICATION PER MEDICATION LIST TILL NEXT CARE HOME VISIT [code = SKILLED NURSE TO PRE-POUR MEDICATION PER MEDICATION LIST TILL NEXT CARE HOME VISIT ] Future Scheduled Test SKILLED NU RSE FOR O/A OF PATIENT'S RISK FOR VIOLENCE (TOWARD SELF OR OTHERS) AND TO PROVIDE INTERVENTION TECHNIQUES TO PROMOTE SAFETY TO PATIENT AND OTHERS [code = SKILLED NURSE FOR O/A OF PATIENT'S RISK FOR VIOLENCE (TOWARD SELF OR OTHERS) AND TO PROVIDE INTERVENTION TECHNIQUES TO PROMOTE SAFETY TO PATIENT AND OTHERS] Future Scheduled Test SKILLED NU RSE FOR O/A OF ALTERED MOOD [code = SKILLED NURSE FOR O/A OF ALTERED MOOD] Future Scheduled Test SKILLED NU RSE TO ADMINISTER MEDICATIONS DAILY AND PRE-POUR MEDICATIONS TILL NEXT CARE HOME PER MEDICATION LIST. [code = SKILLED NURSE TO ADMINISTER MEDICATIONS DAILY AND PRE-POUR MEDICATIONS TILL NEXT CARE HOME PER MEDICATION LIST.] Future Scheduled Test SKILLED NU RSE FOR O/A AND SKILLED TEACHING OF COPING SKILLS TO MANAGE ANXIETY AND MAINTAIN SAFETY. [code = SKILLED NURSE FOR O/A AND SKILLED TEACHING OF COPING SKILLS TO MANAGE ANXIETY AND MAINTAIN SAFETY.] Future Scheduled Test SKILLED NU RSE FOR O/A AND SKILLED TEACHING RELATED TO MANAGEMENT OF DEPRESSIVE SYMPTOMS AND/OR DEPRESSION. SN TO REPORT SIGNIFICANT CHANGE IN DEPRESSIVE SYMPTOMS TO CLINICAL PROVIDER FOR EARLY INTERVENTION. [code = SKILLED NURSE FOR O/A AND SKILLED TEACHING RELATED TO MANAGEMENT OF DEPRESSIVE SYMPTOMS AND/OR DEPRESSION. SN TO REPORT SIGNIFICANT CHANGE IN DEPRESSIVE SYMPTOMS TO CLINICAL PROVIDER FOR EARLY INTERVENTION.] Future Scheduled Test SKILLED NU RSE TO PROVIDE TEACHING ON SIGNS AND SYMPTOMS AND MANAGEMENT OF HYPERTENSION. [code = SKILLED NURSE TO PROVIDE TEACHING ON SIGNS AND SYMPTOMS AND MANAGEMENT OF HYPERTENSION.] Future Scheduled Test SKILLED NU RSE TO PERFORM HOME SAFETY AND FALL ASSESSMENT AND PROVIDE INSTRUCTION TO IMPLEMENT HOME SAFETY AND FALL PREVENTION STRATEGIES. [code = SKILLED NURSE TO PERFORM HOME SAFETY AND FALL ASSESSMENT AND PROVIDE INSTRUCTION TO IMPLEMENT HOME SAFETY AND FALL PREVENTION STRATEGIES.] Future Scheduled Test PATIENT SCHILLING S A RISK OF HOSPITALIZATION AND ED USE. SKILLED NURSE TO ESTABLISH SUPPORT MEASURES TO MINIMIZE RISK OF HOSPITALIZATION AND ED USE, AND INSTRUCT PATIENT/CAREGIVER ON METHODS TO REDUCE AVOIDABLE HOSPITALIZATION AND ED USE. [code = PATIENT HAS A RISK OF HOSPITALIZATION AND ED USE. SKILLED NURSE TO ESTABLISH SUPPORT MEASURES TO MINIMIZE RISK OF HOSPITALIZATION AND ED USE, AND INSTRUCT PATIENT/CAREGIVER ON METHODS TO REDUCE AVOIDABLE HOSPITALIZATION AND ED USE.] Future Scheduled Test SKILLED NU RSE TO REVIEW PATIENT MEDICATIONS. INSTRUCT PATIENT/CAREGIVER ON MONITORING OF EFFECTIVENESS, ADVERSE DRUG REACTIONS, SIDE EFFECTS OF ALL MEDICATIONS (PRESCRIPTION/-OTC), AND HOW AND WHEN TO REPORT PROBLEMS. [code = SKILLED NURSE TO REVIEW PATIENT MEDICATIONS. INSTRUCT PATIENT/CAREGIVER ON MONITORING OF EFFECTIVENESS, ADVERSE DRUG REACTIONS, SIDE EFFECTS OF ALL MEDICATIONS (PRESCRIPTION/-OTC), AND HOW AND WHEN TO REPORT PROBLEMS.] Future Scheduled Test SKILLED NU RSE FOR O/A OF CLIENT'S SOCIAL ISOLATION AND PROVIDE ASSISTANCE TO CLIENT IN DEVELOPMENT OF PLANNED ACTIVITIES [code = SKILLED NURSE FOR O/A OF CLIENT'S SOCIAL ISOLATION AND PROVIDE ASSISTANCE TO CLIENT IN DEVELOPMENT OF PLANNED ACTIVITIES] Future Scheduled Test SKILLED NU RSE TO ASSESS PATIENTS PSYCHOSOCIAL STATUS TO IDENTIFY POTENTIAL ISSUES THAT MAY COMPLICATE THE PROVISION OF THE PLAN OF CARE INCLUDING THE PATIENTS ABILITY TO ACCESS COMMUNITY RESOURCES AND PSYCHOSOCIAL SUPPORT SERVICES. [code = SKILLED NURSE TO ASSESS PATIENTS PSYCHOSOCIAL STATUS TO IDENTIFY POTENTIAL ISSUES THAT MAY COMPLICATE THE PROVISION OF THE PLAN OF CARE INCLUDING THE PATIENTS ABILITY TO ACCESS COMMUNITY RESOURCES AND PSYCHOSOCIAL SUPPORT SERVICES.] Future Scheduled Test SKILLED NU RSE WILL MAINTAIN SITUATIONAL AWARENESS FOR SAFETY AND WILL NOTIFY CLINICAL GRAPHICS PROGRAMMER AND PHYSICIAN/PROVIDER WITH ANY CHANGE IN CONDITION. [code = SKILLED NURSE WILL MAINTAIN SITUATIONAL AWARENESS FOR SAFETY AND WILL NOTIFY CLINICAL GRAPHICS PROGRAMMER AND PHYSICIAN/PROVIDER WITH ANY CHANGE IN CONDITION.] Future Scheduled Test SKILLED NU RSE TO PROVIDE INSTRUCTION TO PATIENT/CAREGIVER RELATED TO DISCHARGE PLANNING. [code = SKILLED NURSE TO PROVIDE INSTRUCTION TO PATIENT/CAREGIVER RELATED TO DISCHARGE PLANNING.] Goal 2022-11-04 Patient Goal - TAKING MY MED S Goal 2023-01-03 Patient Goal - TAKING MY MED S Goal 2023-03-05 Patient Goal - TAKING MY MED S Goal 2023-05-03 Patient Goal - TAKING MY MED S Goal 2023-07-02 Patient Goal - TAKING MY MED S Goal 2023-08-31 Patient Goal - TAKING MY MED S Goal 2023-10-30 Patient Goal - TAKING MY MED S Goal 2023-12-30 Patient Goal - TAKING MY MED S Goal 2024-02-27 Patient Goal - TAKING MY MED S Goal Patient Goal - TAKING MY MED S Goal Provider Goal - A PLAN OF CARE WILL BE ESTABLISHED THAT MEETS PATIENT'S CARE HOME NEEDS AND INCLUDES PATIENT GOAL FOR HOME HEALTH. Goal Provider Goal - PATIENT/CAREGIVER WILL VERBALIZE/DEMONSTRATE EFFECTIVE HOME SAFETY AND FALL PREVENTION STRATEGIES THROUGHOUT CERTIFICATION PERIOD. Goal Provider Goal - PATIENT WILL HAVE SUPPORT MEASURES ESTABLISHED TO PREVENT HOSPITALIZATION AND ED USE AND PATIENT/CAREGIVER WILL VERBALIZE/DEMONSTRATE METHODS TO REDUCE AVOIDABLE HOSPITALIZATION AND ED USE BY END OF EPISODE. Goal Provider Goal - PATIENT/CAREGIVER WILL VERBALIZE UNDERSTANDING OF DISCHARGE PLANNING INSTRUCTIONS BY DATE OF DISCHARGE. Goal Provider Goal - PATIENT WILL REMAIN SAFE IN THE COMMUNITY AND WILL BE FREE OF DANGER TO SELF AND OTHERS THROUGHOUT THE CERTIFICATION PERIOD. Goal Provider Goal - PATIENT/CAREGIVER WILL VERBALIZE UNDERSTANDING OF EDUCATION PROVIDED ON MEDICATIONS BY THE END OF THE CERTIFICATION PERIOD. Goal Provider Goal - PATIENT WILL COMPLY WITH MEDICATION WHEN SKILLED NURSE ADMINISTERS AND PRE-POURS MEDICATION THROUGHOUT CERTIFICATION PERIOD. Goal Provider Goal - PATIENT WILL COMPLY WITH MEDICATION WHEN NURSE ADMINISTERS THROUGHOUT CERTIFICATION PERIOD. Goal Provider Goal - PATIENT WILL COMPLY WITH MEDICATION WHEN SKILLED NURSE PRE-POURS MEDICATION THROUGHOUT CERTIFICATION PERIOD. Goal Provider Goal - PATIENT WILL REMAIN SAFE WITHOUT DECOMPENSATION IN DEPRESSIVE CONDITION, WHILE MAINTAINING OPTIMAL LEVEL OF MENTAL HEALTH AND WELL BEING THROUGHOUT CERTIFICATION PERIOD. Goal Provider Goal - PATIENT WILL REMAIN SAFE IN COMMUNITY WITHOUT EVIDENCE OF INJURY/HARM TO SELF OR OTHERS THROUGHOUT CERTIFICATION PERIOD. Goal Provider Goal - PATIENT WILL BE ABLE TO PERFORM DAILY FUNCTIONS AND HAVE OPTIMAL IMPROVEMENT IN LEVEL OF ANXIETY THROUGHOUT CERTIFICATION PERIOD. Goal Provider Goal - PATIENT WILL BE ABLE TO PERFORM DAILY FUNCTIONS AND HAVE OPTIMAL IMPROVEMENT IN MOOD STABILITY THROUGHOUT CERTIFICATION PERIOD. Goal Provider Goal - PSYCHOSOCIAL NEEDS WILL BE IDENTIFIED AND PLAN IMPLEMENTED TO MINIMIZE RISK THROUGHOUT CERTIFICATION PERIOD. Goal Provider Goal - PATIENT WILL DEMONSTRATE AN INCREASED INTEREST IN SOCIALIZATION AND ACTIVITIES BY THE END OF THE CERTIFICATION PERIOD. Progress Notes Progress Notes <paragraph>[Visit Date: 2024 by DANIELA CHRISTINE RN]:</paragraph><paragraph>PROVIDED CARE: MEDICATION MANAGEMENT, VITAL SIGN ASSESSMENT, MENTAL STATUS ASSESSMENT AND DIAGNOSIS MANAGEMENT AND MEDICAL</paragraph> <paragraph>[Visit Date: 2024 by DANIELA CHRISTINE RN]:</paragraph><paragraph>PROVIDED CARE: MEDICATION MANAGEMENT, VITAL SIGN ASSESSMENT, MENTAL STATUS ASSESSMENT AND DIAGNOSIS MANAGEMENT</paragraph> Encounters Start Date/Time End Date/Time Encounter Type Admission Type Attending [facility] Care Department Encounter ID Discharge Date Discharge Status Discharge Condition Discharge Reason Percent Goals Met 2022-09-10 00:00:00 2024-05-01 00:00:00 [facility] DANIELA [facility]RISTINE [facility] [id number] 17.24
--- OUTSIDE RECORDS SUMMARY | 2024-05-01 17:33 | XMS_ITS | Clinical Summary ---
Author Organization Unknown Care Team Providers Care Curator Of Manuscripts Name Role Phone EUFEMIA ULLOA, TIFFANY Unavailable Unavailable NANCI OSMAN, DANIELA Unavailable Unavailable Payers Payer Name Policy Type Policy Number Effective Date Expira tion Date [place] [id number] ON DEMAND MEDICARE - [facility] BILLING - ABN [id number] Problems Condition Name Condition Details Condition Category [...] 1 mg tablet 08-26 00:00: 00 Yes [id number] 1 mg ONCE A DAY NEEDED 1 mg ONCE A DAY NEEDED (route: oral) Med Classific ation: Central Nervous System Agents mirtazapine 45 mg tablet 08-26 00:00: 00 Yes [id number] 45 mg AT BEDTIME 45 mg AT BEDTIME (route: oral) Med Classific ation: Central Nervous System Agents amlodipine 5 mg tablet 08-17 00:00: 00 Yes [id number] 5 mg DAILY 5 mg DEBORAH Y (route: oral) Med Classific ation: Cardiovas cular Therapy Agents aspirin 81 mg tablet,yenny yed release 09-09 00:00: 00 Yes [id number] 81 mg DAILY 81 mg DAILY (route: oral) Med Classific ation: Hematolog ical Agents lisinopril 20 mg tablet 09-10 00:00: 00 Yes [id number] 20 mg DAILY 20 mg DAILY (route: [...] PRE-POUR MEDICATION PER MEDICATION LIST TILL NEXT CORRECTION VISIT [code = SKILLED NURSE TO PRE-POUR MEDICATION PER MEDICATION LIST TILL NEXT CORRECTION VISIT ] Future Scheduled Test SKILLED NU [...] MEDICATIONS DAILY AND PRE-POUR MEDICATIONS TILL NEXT CORRECTION PER MEDICATION LIST. [code = SKILLED NURSE TO ADMINISTER MEDICATIONS DAILY AND PRE-POUR MEDICATIONS TILL NEXT CORRECTION PER MEDICATION LIST.] Future Scheduled Test SKILLED [...] AWARENESS FOR SAFETY AND WILL NOTIFY CLINICAL RIVET MACHINE OPERATOR AND PHYSICIAN/PROVIDER WITH ANY CHANGE IN CONDITION. [code = SKILLED NURSE WILL MAINTAIN SITUATIONAL AWARENESS FOR SAFETY AND WILL NOTIFY CLINICAL RIVET MACHINE OPERATOR AND PHYSICIAN/PROVIDER WITH ANY CHANGE IN CONDITION.] [...] CARE WILL BE ESTABLISHED THAT MEETS PATIENT'S CORRECTION NEEDS AND INCLUDES PATIENT GOAL FOR HOME [...] End Date/Time Encounter Type Admission Type Attending [facility] Care Department Encounter ID Discharge Date Discharge Status Discharge Condition Discharge Reason Percent Goals Met 2022-09-10 00:00:00 2024-05-01 00:00:00 [facility] DANIELA CHRISTINE [facility] [id number] 17.24
--- OUTSIDE RECORDS SUMMARY | 2024-05-01 17:33 | XMS_ITS | Encounter Summary ---
Author Organization [employer] Address [address] [place] [address] Care Team Providers Care Industrial Custodian Name Role Phone Genia Jarquin MD Primary Care Provider [phone] Scooby Dwyer PharmD Unavailable [phone] Reason for Visit * Reason Onset Date Comments may recall 04/25/2024 Encounter Details Date Type Department Care Team (Late st Contact Info) Description 04/25/2024 Telephone [facility] MEDICINE [address] [place], [place] [phone] Aleshia Barajas MA may recall Social History Tobacco Use Types Packs/Day Years [...] AM EDT documented as of this encounter Miscellaneous Notes * Telephone Encounter - Aleshia Barajas MA - 04/25/2024 9:42 AM EST .[facility] called the patient to schedule a visit and no answer. Message left to call back and schedule. (May recall seizure-like activity. ) documented in this encounter Plan of Treatment Not on file documented as of this encounter Goals Goal Patient Goal Type Associated Problems Recent Progress Patient-Stated? Author Blood Pressure < 140/90 Blood Pressure 140/68(2023 9:12 AM EST) No Scooby Dwyer, Lissette Hemoglobin A1c < 7 Result Component 5.9( 9:05 AM EST) No Scooby Dwyer PharmD documented as of this encounter Visit Diagnoses Not on filedocumented in this encounter Additional Health Concerns Assessment Noted Time PHQ-9 Depression Total Score: 0 03/17/20 9:06 AM EST documented as of this encounter Care Teams Industrial Custodian Relationship Specialty Start Date End Date Genia Jarquin MD [address] [place] [address] PCP - General Family Medicine 02/15/12 Scooby Dwyer PharmD [address] [place] [address] Pharmacist Internal Medicine 04/23/23 Bev Rojas 09/10/22 documented as of this encounter
--- OUTSIDE RECORDS SUMMARY | 2024-05-01 17:33 | XMS_ITS | Encounter Summary ---
Author Organization [facility] Address [address] [facility] [address] [address] [facility] [address] [place] [address] Care Team Providers Care Corporate Accountant Name Role Phone Genia Jarquin MD Primary Care Provider [phone] Scooby Dwyer PharmD Unavailable [phone] Reason for Visit * Reason Comments Med Refill Encounter Details Date Type Department Care Team (Late st Contact Info) Description 09/08/2022 Refill [facility] MED[facility] [address] [place], [place] [phone] Genia Jarquin MD [address] [place] [address] Social History Tobacco Use Types Packs/Day Years Used Date Smoking Tobacco: Never Smokeless Tobacco: Never Alcohol Use Standard Drinks/Week Comments Never 0 (1 standard drink = 0.6 oz pur e alcohol) Depression Answer Date Recorded Patient Health Questionnaire-9 Score 0 09/12/2022 Depression Answer Date Recorded Patient Health Questionnaire-2 Score 0 09/12/2022 Sex and Gender Information Value Date Recorded Sex Assigned at Male 01/30/2022 10:15 AM EDT Legal Sex Male 10:15 AM EDT Gender Identity Male 10/18/2023 10:00 AM EDT Sexual Orientation Straight 10/18/2023 10 :00 AM EDT documented as of this encounter Plan of Treatment Not on file documented as of this encounter Visit Diagnoses Not on filedocumented in this encounter Additional Health Concerns Assessment Noted Time PHQ-9 Depression Total Score: 0 05/15/19 23 9:41 AM EST documented as of this encounter Care Teams Corporate Accountant Relationship Specialty Start Date End Date Genia Jarquin MD [address] [place] [address] PCP - General Family Medicine 02/15/12 Scooby Dwyer, TereseD [address] [place] [address] Pharmacist Internal Medicine 04/23/23 Bev Rojas 09/10/22 documented as of this encounter
--- OUTSIDE RECORDS SUMMARY | 2024-05-01 17:33 | XMS_ITS | Encounter Summary ---
Author Organization [employer] Address [address] [facility] [address] [place] [address] Care Team Providers Care Tube Splicer Name Role Phone Genia Jarquin MD Primary Care Provider Scooby Dwyer PharmD Unavailable [phone] Encounter Details Date Type Department Care Team (Late st Contact Info) Description 08/02/2023 Abstract [facility] MEDICINE [address] [place], [place] [phone] Genia Jarquin MD [address] [place], [place] [phone] Social History Tobacco Use Types Packs/Day Years Used Date Smoking Tobacco: Never Passive Smoke Exposure: Never Smokeless Tobacco: Never Alcohol Use Standard Drinks/Week Comments Never 0 (1 standard drink = 0.6 oz pur e alcohol) Depression Answer Date Recorded Patient Health Questionnaire-9 Score 0 09/12/2022 Housing Stability Answer Date Recorded What is your housing situation today? I have mery llamas 01/16/[address] you li ve. Do you have problems with any of the following? None of the above 01/16/2023 Food Insecurity Answer Date Recorded Within the past 12 months, y ou worried that your food would run out before you got money to buy more: Never True 01/16/2023 Within the past 12 months,th e food you bought just didn't last and you didn't have enough money to get more: Never True Transportation Answer Date Recorded In the past 12 months, has l ack of transportation kept you from medical appts, meetings, work or from getting things needed for daily living? No 01/16/2023 Utilities Answer Date Recorded In the past 12 months, has t he electric, gas, oil or water company threatened to shut off services in your home? No 01/16/2023 Depression Answer Date Recorded Patient Health Questionnaire-2 [...] Pressure 140/68(2023 9:12 AM EST) No Scooby Dwyer PharmD Hemoglobin A1c < 7 Result Component 5.9( 9:05 AM EST) No Scooby Dwyer PharmD documented as of this encounter Procedures Procedure Name Priority Date/Time Associated Diagnosis Comments DIABETES EYE EXAM Routine 07/02/2023 documented in this encounter Results * Diabetes Eye Exam (07/02/2023) Eye Exam Normal Normal 07/02/2023 us Historical Provider HEALTH MAINTENANCE Final Result documented in this encounter Visit Diagnoses Not on filedocumented in this encounter Additional Health Concerns Assessment Noted Time PHQ-9 Depression Total Score: 0 09/13/19 23 10:39 AM EDT documented as of this encounter Care Teams Tube Splicer Relationship Specialty Start Date End Date Genia Jarquin MD [address] [place] [address] PCP - General Family Medicine 02/15/12 Scooby Dwyer PharmD [address] [place] [address] Pharmacist Internal Medicine 04/23/23 Bev Rojas 09/10/22 documented as of this encounter
--- OUTSIDE RECORDS SUMMARY | 2024-05-01 17:33 | XMS_ITS | Encounter Summary ---
Author Organization [employer] Address [address] [place] [address] Care Team Providers Care Compound Filler Name Role Phone Genia Jarquin MD Primary Care Provider [phone] Scooby Dwyer PharmD Unavailable [phone] Encounter Details Date Type Department Care Team ([facility] st Contact Info) Description 12/18/2023 Orders Only [facility] MEDICINE [address] [place], [place] [phone] Genia Jarquin MD [address] [place], [place] [phone] Essential hypertension Social History Tobacco Use Types Packs/Day Years [...] Recorded Patient Health Questionnaire-2 Score 2 10/18/2023 Internet Access Answer Date Recorded Internet Access [...] documented as of this encounter Visit Diagnoses Diagnosis Essential hypertension Unspecified essential hypertension documented in this encounter Additional Health Concerns Assessment Noted Time PHQ-9 Depression Total Score: 2 10/18/19 24 10:09 AM EDT documented as of this encounter Care Teams Compound Filler Relationship Specialty Start Date End Date Genia Jarquin MD [address] [place] [address] PCP - General Family Medicine 02/15/12 Scoboy Dwyer PharmD [address] [place] [address] Pharmacist Internal Medicine 04/23/23 Bev Rojas 09/10/22 documented as of this encounter
[2024-05-02 17:28] LABS: Lyme Abs Screen <0.90 index
== END 2024-05-01 13:40 | disposition home or self-care (01) ==
LOC: HO.LAB 13:39
PROVIDERS: PCP Family Medicine; Visit Provider Psychiatry & Neurology Neurology
DX: G40.909 Epilepsy, unspecified, not intractable, without status epilepticus (principal)
CPT/HCPCS: 36415; 86617; 86618

== ENCOUNTER → 2024-10-15 10:46 | Outpatient (REF) | payer MEDICARE, MEDICAID, SELFPAY ==
--- NOTE | 2024-10-15 10:50 | CA_ITS ---
Transthoracic Echocardiogram Patient (Last, First, Middle): Hesham Godwin, Gender: Male Date of : 1945 Age: 79 Procedure Date: 10/15/2024 Procedure Type: Transthoracic Echocardiogram Location: OP Height: 162.56 cm Weight: 68.04 kg BSA: 1.73 m2 Heart Rate: bpm BP: 138 / 70 mmHg Electric Serviceman: ORION Referring MD: Genia Jarquin MD Symptoms: RO1.1 HEART MURMUR Study Quality: Adequate ECG Rhythm: Sinus Conclusions: - The left ventricular systolic function is normal. The calculated ejection fraction is 58% by biplane method. - There is moderate aortic valve stenosis. Findings Left Ventricle Normal left ventricular cavity size. There is normal left ventricular wall thickness. The left ventricular systolic function is normal. The calculated ejection fraction is 58% by biplane method. There is no evidence of regional wall motion abnormalities. Right Ventricle Normal right ventricular cavity size and systolic function. Atria Both atria are normal in size. Aortic Valve There is severe calcification of the aortic valve. There is moderate aortic valve stenosis. There is trace (trivial) aortic valve regurgitation. Dimensionless index 0.28. Stroke volume index 42 mL/m2. Mitral Valve There is mild mitral annular calcification. There is trace mitral valve regurgitation. There is no mitral valve stenosis. Pulmonic Valve The pulmonic valve is likely normal. Tricuspid Valve Normal tricuspid valve structure. There is trace tricuspid valve regurgitation. There is no evidence of pulmonary hypertension. Great Vessels The asc aorta is normal in size. Venous The inferior vena cava is normal in size and collapses greater than 50% with inspiration. Pericardium/Pleural There is no evidence of pericardial effusion. Prior Study Comparison No prior study available for comparison. Measurements 2D Linear Measurements IVSd: 0.95 0.6-0.9/0.6-1.0 cm LVIDd: 4.48 3.9-5.3/4.2-5.9 cm LVIDd Index: 2.59 2.4-3.2/2.2-3.1 cm/m2 LVIDs: 3.32 2.0-3.6 cm LVPWd: 0.93 0.7-1.1 cm LA Diam: 2.80 2.7-3.8/3.0-4.0 cm LAIDs Index: 1.62 1.5-2.3 cm/m2 LV Mass: 174.29 67-162/88-224 g LV Mass Index: 100.75 43-95/49-115 g/m2 LVOT Diam: 2.10 3.0+(-)1.3 cm 2D Systolic Function EF 4C: 59.60 >55% EF 2C: 56.50 >55% EF BiP: 57.70 >55% Mitral Valve MV Pk E: 0.88 MV PK A: 1.18 MV Decel Time: 178.00 E/A: 0.70 E'Lateral: 7.29 E'Medial: 5.33 E/E' Med: 16.40 E/E' Lat: 12.00 PHT: 52.00 MVA PHT: 4.23 Decel [place]: 4.91 Aortic Valve AoV Pk Trevor: 2.62 AoV Mn Trevor: 2.00 AoV VTI: 0.65 AoV Pk Grad: 27.00 Aov Mn Grad: 17.00 [place] Cont.VTI: 1.12 LVOT LVOT Pk Trevor: 0.73 LVOT Mn Trevor: 0.53 LVOT VTI: 0.21 LVOT Pk Grad: 2.00 LVOT Mn Grad: 1.00 LVOT Diam: 2.10 LVOT Area: 3.46 Diastolic Function MV Pk E: 0.88 MV Pk A: 1.18 E/A: 0.70 E'Medial: 5.33 E/E' Med: 16.40 E' Laterial: 7.29 E/E' Lat: 12.00 Right Ventricle TAPSE (mm): 18.40 TVS' Trevor: 8.70 Tricuspid Valve TR Pk Trevor: 1.70 TR Pk Grad: 12.00 Great Vessels Aorta Sinus of Valsalva: 3.15 2.0-3.5 cm Ao Asc: 3.20 2.1-3.4 cm Updated in Other Vendor System with Status of Final Chidi Cruz MD electronically signed on 10/16/2024 3:30:20 PM with status of Final
--- NOTE | 2024-10-15 10:52 | HM_ITS ---
Cardiac event monitor Indication: Syncope Technique: Patient was hooked up to cardiac event monitor from 10/15/2024 to 11/14/2024 for total period of 30 days. Total wear time was 27.3 days. Conclusion: Baseline rhythm is normal sinus rhythm 99.99% of the time. Minimum heart rate of 50 beats per minute sinus bradycardia and maximum heart rate 150 beats per minute short run of SVT. Average heart rate is 81 beats per minute. No significant pauses or av conduction abnormalities noted. Very rare PACs noted with 1 5 beat run of SVT noted. Patient triggered the event monitor 79 times, most of this correlating with sinus rhythm. Conclusion: 1. Baseline was normal sinus rhythm with no pauses 2. Very rare PACs noted with 1 5 beat run of SVT 3. Most of the patient reported events correlated with sinus rhythm MTDD
--- OUTSIDE RECORDS SUMMARY | 2024-10-15 11:30 | XMS_ITS | Encounter Summary ---
Author Organization [employer] Address [address] [place] [address] Care Team Providers Care Track Inspector Name Role Phone Genia Jarquin MD Primary Care Provider [phone] Scooby Dwyer PharmD Unavailable [phone] Encounter Details Date Type Department Care Team ([facility] st Contact Info) Description 12/18/2023 Orders Only [facility] [address] [place], [place] [phone] Genia Jarquin MD [address] [place], [place] [phone] Essential hypertension Social History Tobacco Use Types [...] as of this encounter Plan of Treatment Upcoming Encounters Date Type Department Care Team (Late st Contact Info) Description 11/03/2024 10:30 AM EDT Office Visit [facility] [address] [place] [id number] Genia Jarquin MD [address] [place] [phone] documented as of this encounter Goals Goal Patient Goal Type Associated Problems Recent Progress Patient-Stated? Author Blood Pressure < 140/90 Blood Pressure 142/70(2024 11:50 AM EDT) No Scooby Dwyer PharmD Hemoglobin A1c < 7 Result Component 6(08/11/2024 11:33 AM EDT) No Scooby Dwyer PharmD documented as of this encounter Visit Diagnoses Diagnosis Essential hypertension Unspecified essential hypertension documented in this encounter Additional Health Concerns Assessment Noted Time PHQ-9 Depression Total Score: 2 10/18/19 24 10:09 AM EDT documented as of this encounter Care Teams Track Inspector Relationship Specialty Start Date End Date Genia Jarquin MD [address] [place] [id number] PCP - General Family Medicine 02/15/12 Scooby Dwyer PharmD [address] [place] [address] Pharmacist Internal Medicine 04/23/23 Bev Rojas 09/10/22 documented as of this encounter
--- OUTSIDE RECORDS SUMMARY | 2024-10-27 20:00 | XMS_ITS | Clinical Summary ---
Author Organization Unknown Care Team Providers Care Cut Off Saw Grader Name Role Phone EUFEMIA ULLOA, TIFFANY Unavailable Unavailable NANCI OSMAN, DANIELA Unavailable Unavailable Payers Payer Name Policy Type Policy Number Effective Date Expira tion Date [place] [id number] ON DEMAND MEDICARE - [facility] BILLING - ABN [id number] Problems Condition Name Condition Details Condition Category [...] 1 mg tablet 08-26 00:00: 00 Yes [id number] 1 mg ONCE A DAY NEEDED 1 mg ONCE A DAY NEEDED (route: oral) Med Classific ation: Central Nervous System Agents mirtazapine 45 mg tablet 08-26 00:00: 00 Yes [id number] 45 mg AT BEDTIME 45 mg AT BEDTIME (route: oral) Med Classific ation: Central Nervous System Agents amlodipine 5 mg tablet 08-17 00:00: 00 Yes [id number] 5 mg DAILY 5 mg DEBORAH Y (route: oral) Med Classific ation: Cardiovas cular Therapy Agents aspirin 81 mg tablet,yenny yed release 09-09 00:00: 00 Yes [id number] 81 mg DAILY 81 mg DAILY (route: oral) Med Classific ation: Hematolog ical Agents lisinopril 20 mg tablet 09-10 00:00: 00 Yes [id number] 20 mg DAILY 20 mg DAILY (route: oral) Med Classific ation: Cardiovas cular Therapy Agents Vital Signs Vital Name Observation Time Observation Value Commen ts Temperature 2024-10-14 12:34:00.000 97.6 [degF] Temperature 2024-10-13 12:23:00.000 97.5 [degF] Temperature 2024-10-10 12:40:00.000 97.5 [degF] Temperature 2024-10-09 12:05:00.000 97.5 [degF] Temperature 2024-10-08 12:25:00.000 97.5 [degF] Temperature 2024-10-07 12:10:00.000 97.5 [degF] Temperature 2024-10-06 12:44:00.000 97.5 [degF] Temperature 2024-10-03 11:25:00.000 97.6 [degF] Temperature 2024-10-02 11:58:00.000 97.5 [degF] Temperature 2024-10-01 12:12:00.000 97.5 [degF] Temperature 2024-09-30 12:16:00.000 97.5 [degF] Temperature 2024-09-29 12:04:00.000 97.6 [degF] Temperature 2024-09-26 12:07:00.000 97.7 [degF] Temperature 2024-09-25 12:06:00.000 97.4 [degF] Temperature 2024-09-24 12:21:00.000 97.5 [degF] Temperature 2024-09-23 12:32:00.000 97.5 [degF] Temperature 2024-09-22 12:20:00.000 97.8 [degF] Temperature 2024-09-19 12:11:00.000 97.4 [degF] Temperature 2024-09-18 12:09:00.000 97.4 [degF] Temperature 2024-09-17 12:44:00.000 97.2 [degF] Temperature 2024-09-16 12:29:00.000 97.8 [degF] Temperature 2024-09-15 12:06:00.000 97.5 [degF] Temperature 2024-09-12 12:03:00.000 97.5 [degF] Temperature 2024-09-11 11:38:00.000 97.8 [degF] Temperature 2024-09-11 03:08:00.000 97.5 [degF] Temperature 2024-09-09 12:26:00.000 97.8 [degF] Temperature 2024-09-08 12:24:00.000 97.8 [degF] Temperature 2024-09-05 12:37:00.000 97.3 [degF] Temperature 2024-09-04 11:38:00.000 97.4 [degF] Temperature 2024-09-03 12:49:00.000 97.5 [degF] Temperature 2024-09-02 12:22:00.000 97.5 [degF] Temperature 2024-09-01 12:58:00.000 97.8 [degF] Plan of Treatment Planned Activity Planned Date [...] ADMINISTRATION PER MEDICATION LIST TO BE PERFORMED FIVE TIMES A WEEK [code = SKILLED NURSE FOR MEDICATION ADMINISTRATION PER MEDICATION LIST TO BE PERFORMED FIVE TIMES A WEEK ] Future Scheduled Test SKILLED NU RSE TO PRE-POUR MEDICATION PER MEDICATION LIST TILL NEXT SNF VISIT [code = SKILLED NURSE TO PRE-POUR MEDICATION PER MEDICATION LIST TILL NEXT SNF VISIT ] Future Scheduled Test SKILLED NU RSE TO O/A OF PATIENTS MENTAL/BEHAVIORAL STATUS, ASSESS VITAL SIGNS WEEKLY , ALLOW 2 PRNS FOR MEDICATION MANAGEMENT. [code = SKILLED NURSE TO O/A OF PATIENTS MENTAL/BEHAVIORAL STATUS, ASSESS VITAL SIGNS WEEKLY , ALLOW 2 PRNS FOR MEDICATION MANAGEMENT.] Future Scheduled Test SKILLED NU RSE FOR O/A OF ALTERED THOUGHT PROCESS AND/OR DISRUPTION IN COGNITIVE OPERATIONS AND ACTIVITIES [code = SKILLED NURSE FOR O/A OF ALTERED THOUGHT PROCESS AND/OR DISRUPTION IN COGNITIVE OPERATIONS AND ACTIVITIES ] Future Scheduled Test SKILLED NU RSE FOR O/A OF GENERAL HEALTH STATUS OF PAIN, CARDIAC, RESPIRATORY, GASTROINTESTINAL, GENITOURINARY, SKIN, NEUROLOGIC, ENDOCRINE SYSTEMS TO IDENTIFY CHANGES ASSOCIATED WITH EXACERBATION FOR EARLY INTERVENTION OF COMPLICATIONS WEEKLY. [code = SKILLED NURSE FOR O/A OF GENERAL HEALTH STATUS OF PAIN, CARDIAC, RESPIRATORY, GASTROINTESTINAL, GENITOURINARY, SKIN, NEUROLOGIC, ENDOCRINE SYSTEMS TO IDENTIFY CHANGES ASSOCIATED WITH EXACERBATION FOR EARLY INTERVENTION OF COMPLICATIONS WEEKLY.] Future Scheduled Test SKILLED NU RSE TO ADMINISTER MEDICATIONS FIVE TIMES A WEEK AND PRE-POUR MEDICATIONS TILL NEXT SNF VISIT PER MEDICATION LIST. [code = SKILLED NURSE TO ADMINISTER MEDICATIONS FIVE TIMES A WEEK AND PRE-POUR MEDICATIONS TILL NEXT SNF VISIT PER MEDICATION LIST.] Future Scheduled Test SKILLED [...] AWARENESS FOR SAFETY AND WILL NOTIFY CLINICAL SOFTWARE TESTING SPECIALIST AND PHYSICIAN/PROVIDER WITH ANY CHANGE IN CONDITION. [code = SKILLED NURSE WILL MAINTAIN SITUATIONAL AWARENESS FOR SAFETY AND WILL NOTIFY CLINICAL SOFTWARE TESTING SPECIALIST AND PHYSICIAN/PROVIDER WITH ANY CHANGE IN CONDITION.] [...] Goal - TAKING MY MED S Goal 2024-04-28 Patient Goal - TAKING MY MED S Goal 2024-06-26 Patient Goal - TAKING MY MED S Goal 2024-08-25 Patient Goal - TAKING MY MED S Goal Patient Goal - TAKING MY MED S Goal Provider Goal - A PLAN OF CARE WILL BE ESTABLISHED THAT MEETS PATIENT'S SNF NEEDS AND INCLUDES PATIENT GOAL FOR HOME HEALTH. Goal Provider Goal - PATIENT WILL COMPLY WITH MEDICATION WHEN NURSE ADMINISTERS THROUGHOUT CERTIFICATION PERIOD. Goal Provider Goal - PATIENT WILL COMPLY WITH MEDICATION WHEN SKILLED NURSE PRE-POURS MEDICATION THROUGHOUT CERTIFICATION PERIOD. Goal Provider Goal - ALTERED MENTAL/BEHAVIORAL STATUS WILL BE IDENTIFIED PROMPTLY AND INTERVENTION INITIATED QUICKLY TO MINIMIZE ASSOCIATED RISKS THROUGHOUT CERTIFICATION PERIOD. Goal Provider Goal - PATIENT WILL BE ABLE TO PERFORM DAILY FUNCTIONS AND HAVE OPTIMAL IMPROVEMENT IN THOUGHT PROCESS THROUGHOUT CERTIFICATION PERIOD. Goal Provider Goal - CHANGE IN GENERAL HEALTH STATUS WILL BE IDENTIFIED AND REPORTED TO PHYSICIAN FOR PROMPT INTERVENTION TO MINIMIZE ASSOCIATED RISKS THROUGHOUT CERTIFICATION PERIOD. Goal Provider Goal - PATIENT WILL COMPLY WITH MEDICATION WHEN SKILLED NURSE ADMINISTERS AND PRE-POURS MEDICATION THROUGHOUT CERTIFICATION PERIOD. Goal Provider Goal - PATIENT WILL REMAIN SAFE WITHOUT DECOMPENSATION IN DEPRESSIVE CONDITION, WHILE MAINTAINING OPTIMAL LEVEL OF MENTAL HEALTH AND WELL BEING THROUGHOUT CERTIFICATION PERIOD. Goal Provider Goal - PATIENT/CAREGIVER WILL VERBALIZE/DEMONSTRATE [...] THE CERTIFICATION PERIOD. Goal Provider Goal - PSYCHOSOCIAL NEEDS WILL BE IDENTIFIED AND PLAN IMPLEMENTED TO MINIMIZE RISK THROUGHOUT CERTIFICATION PERIOD. Goal Provider Goal - PATIENT WILL REMAIN SAFE IN THE COMMUNITY AND WILL BE FREE OF DANGER TO SELF AND OTHERS THROUGHOUT THE CERTIFICATION PERIOD. Goal Provider Goal - PATIENT/CAREGIVER WILL VERBALIZE UNDERSTANDING OF DISCHARGE PLANNING INSTRUCTIONS BY DATE OF DISCHARGE. Progress Notes Progress Notes <paragraph>[Visit Date: 2024 by DANIELA CHRISTINE RN]:</paragraph><paragraph>SN EDUCATED PATIENT THAT WAYS TO PROMOTE SLEEP INCLUDE NOT WATCHING TV/USING CELL PHONE WHILE IN BED, PRACTICING MEDITATION/RELAXING ACTIVITIES PRIOR TO GOING TO BED, AND NOT EATING/DRINKING A FEW HOURS BEFORE BED TO REDUCE THE RISK OF NEEDING TO USE THE BATHROOM THROUGHOUT THE NIGHT, PATIENT VERBALIZED UNDERSTANDING.</paragraph> Encounters Start Date/Time End Date/Time Encounter Type Admission Type Attending [facility] Care Facility Care Department Encounter ID Discharge Date Discharge Status Discharge Condition Discharge Reason Percent Goals Met 2024-08-30 00:00:00 2024-10-28 00:00:00 Outpatient RECERTDANIELA CERVANTES [facility] [id number] 31.25
== END ==
LOC: HO.CARD 10:46
PROVIDERS: PCP Family Medicine; Visit Provider Family Medicine
DX: R55 Syncope and collapse (principal); R01.1 Cardiac murmur, unspecified; Z13.6 Encounter for screening for cardiovascular disorders
CPT/HCPCS: 93270; 93306

== ENCOUNTER → 2024-10-15 10:50 | Outpatient (BNV) | payer MEDICARE, MEDICAID, SELFPAY | PROVIDERS: PCP Family Medicine; Visit Provider Internal Medicine | DX: I35.2 Nonrheumatic aortic (valve) stenosis with insufficiency (principal); I35.8 Other nonrheumatic aortic valve disorders | CPT/HCPCS: 93306 ==

== ENCOUNTER 2024-12-09 13:28 | Outpatient (AMB) | payer MEDICARE, MEDICAID, SELFPAY ==
--- NOTE | 2024-12-09 13:41 | A.OFFVIS_ITS ---
Intake Visit Reasons: 6 month Sz Allergies ciprofloxacin (Ciprofloxacin) Allergy (Severe, Verified 01/28/24 11:49) RASH AND ITCHING ALL OVER HPI Comments Details: 79 yo man who had two generalized convulsion episodes in Mar when he came to [facility]. He was doing okay with no further seizures. No new symptoms. [facility] Medical History (Updated 12/09/24 @ 13:42 by Lino Escalante MD) Cerebral microvascular disease Seizure H/O primary malignant neoplasm of urinary bladder High cholesterol Depression Asthma Diabetes HTN (hypertension) Social History Household Members: Spouse and Children Housing: Apartment Are you a primary skin care specialist to a significant other at home: No Do you presently have visiting nurse or other home services: No Alcohol intake: never Patient Tobacco Use Status: Never used Tobacco Tobacco use type: Cigarette Cigarettes Per Day: 20 e-Cigarette/Vaping Use: Never Used Second Hand Smoke Exposure: Yes Substance Use Type: Tranquilizers service: Yes Sexual orientation: Straight/Heterosexual Review of Systems Const Details: No seizures or new symptoms. Physical Exam Neuro Other: Mental Status: Alert and oriented to person, place, and time. Normal attention. Normal spontaneous speech, fluency, and comprehension. \ Cranial Nerves: CN II: Visual maddox full to confrontation, visual acuity intact. CN III, IV, : Pupils equal, round, reactive to light and accommodation. Extraocular movements are normal. CN V: Facial sensation is normal. CN VII: Facial movements symmetrical. CN VIII: Hearing intact to bedside conversation is normal. CN IX, X: Palate elevates symmetrically. CN XI: Shoulder shrug and head turn symmetrical. CN XII: Tongue midline without atrophy or fasciculations. Extrapyramidal: Full facial expressions and blinking. No rigidity. Movements are appropriate with no tremor or abnormality. Speech: Normal; no dysarthria or tremor. Assessment & Plan Assessment & Plan (1) Seizure disorder: Comment: EEG at off in May 2024; WNL MRI brain WO at [facility] in Jan 2024: Mod MVD, meningeal hyperintensity on left side CT brain WO at [facility] in Jan 2024: [place] CTA brain and neck at [facility] in Jan 2024: OK Code(s): G40.909 - Epilepsy, unspecified, not intractable, without status epilepticus Category: Medical Plan Impression: Generalized seizure disorder Rec: Levetiracetam 500mg bid Medications: New levetiracetam 500 mg PO BID 180 tabs 1RF Coding Level of Care Code Est Pt Level 3 (51194) Diagnoses Seizure disorder G40.909
--- OUTSIDE RECORDS SUMMARY | 2024-12-09 15:58 | XMS_ITS | Encounter Summary ---
Author Organization [employer] Address [address] [place] [address] Care Team Providers Care Director Of Cardiology Service Line Name Role Phone Genia Jarquin MD Primary Care Provider [phone] Scooby Dwyer PharmD Unavailable [phone] Encounter Details Date Type Department Care Team ([facility] st Contact Info) Description 12/18/2023 Orders Only [facility] MED[facility]INE [address] [place], [place] [phone] Genia Jarquin MD [address] [place], [place] [phone] Essential hypertension Social History Tobacco Use Types [...] Author Blood Pressure < 140/90 Blood Pressure 136/70(2024 10:56 AM EDT) No Scooby Dwyer, Lissette Hemoglobin A1c < 7 Result Component 6.2( 10:58 AM EDT) No Scooby Dwyer PharmD documented as of this encounter Visit Diagnoses Diagnosis Essential hypertension Unspecified essential hypertension documented in this encounter Additional Health Concerns Assessment Noted Time PHQ-9 Depression Total Score: 2 10/18/19 24 10:09 AM EDT documented as of this encounter Care Teams Director Of Cardiology Service Line Relationship Specialty Start Date End Date Genia Jarquin MD [address] [place] [address] PCP - General Family Medicine 02/15/12 Scooby Dwyer PharmD [address] [place] [address] Pharmacist Internal Medicine 04/23/23 Bev Rojas 09/10/22 documented as of this encounter
--- OUTSIDE RECORDS SUMMARY | 2024-12-09 15:59 | XMS_ITS | Clinical Summary ---
Author Organization [employer] Address [address] [place] [address] Care Team Providers Care Contract Negotiator Name Role Phone Genia Jarquin MD Primary Care Provider [phone] Scooby Dwyer PharmD Unavailable [phone] Allergies Active Allergy Reactions Criticality Noted Date Comments Ciprofloxacin 09/28/2011 Medications * This document contains information received from the source organization and may not represent a complete record from that organization. mirtazapine (Remeron) 45 MG tablet TOME DAPHNE TABLETA POR V A ORAL AT BEDTIME 03/17/20 22 Active LORazepam (Ativan) 1 MG tablet TOME DAPHNE TABLETA TODOS LOS D CUANDO SEA NECESARIO 04/06/19 23 Active Blood Pressure Monitor kit Check blood pressure once daily and as needed 1 kit 09/13/19 23 Active glucose blood (FREESTYLE LITE) test strip Use 1 Strip by to skin route every day 09/17/19 19 Active acetaminophen (Tylenol Extra Strength) 500 MG tablet Take 2 tablets by mouth every 8 hours as needed for pain or fever 90 tablet 1 10/18/19 24 Active amLODIPine (Norvasc) 5 MG tabletIndications :Essential hypertension Take 1 tablet by mouth daily 90 tablet 3 12/18/19 24 Active aspirin (Aspirin Low Dose) 81 MG EC tabletIndications :At high risk for cardiovascular disease TAKE 1 TABLET BY MOUTH EVERY MORNING 90 tablet 3 03/05/20 24 Active levETIRAcetam (Keppra) 250 MG tablet Take 250 mg by mouth 2 times daily. 06/04/19 25 Active rosuvastatin (Crestor) 20 MG tablet TAKE 1 TABLET BY MOUTH EVERY DAY 90 tablet 3 09/16/19 25 Active lisinopril 20 MG tablet TAKE 1 TABLET BY MOUTH EVERY DAY 90 tablet 3 11/13/19 25 Active lisinopril 20 MG tablet TAKE 1 TABLET BY MOUTH EVERY DAY 90 tablet 3 12/04/19 24 025 Discontinued Active Problems Problem Noted Date Diagnosed Date Health care maintenance 11/04/2024 Assessment & Plan (11/04/2024 5:12 PM EDT): - immunizations up to date except COVID19 - colonoscopy in 2018 - last lab Mar 2024 Heart murmur 08/11/2024 Assessment & Plan (11/04/2024 5:10 PM EDT): - Echo (TTE) 08/11/24: Normal left ventricular systolic function. Ejection fraction 58%. Moderate aortic valve stenosis. - Murmur most likely due to aortic stenosis -Await for CDTM; consider referral to supervisor heavy equipment Assessment & Plan (08/12/2024 7:31 AM EDT): - Ordered Transthoracic Echo (TTE) Complete 08/11/24 Syncopal episodes 03/17/2024 Assessment & Plan (11/04/2024 5:02 PM EDT): - 01/28/24 Taken to [facility] ED by EMS. Developed seizure-like episode in ED. Given Levetiracetam IV and lorazepam. - Hospitalized for further evaluation, but left AMA - Referred to neurology for EEG and further evaluation. Seen by Dr. Escalante on 05/01/24 and EEG was ordered. Patient was prescribed levetiracetam 500 mg bid. - Patient currently has RUBI Assessment & Plan (08/16/2024 7:43 AM EDT): - 01/28/24 Taken to [facility] ED by EMS. Developed seizure-like episode in ED. Given Levetiracetam IV and lorazepam. - Hospitalized for further evaluation, but left AMA - Referred to neurology for EEG and further evaluation. Seen by Dr. Escalante on 05/01/24 and EEG was ordered. Patient was prescribed levetiracetam 500 mg bid. - Ordered RUBI, but patient has not done it yet Assessment & Plan (03/17/2024 5:18 PM EST): - 01/28/24 Taken to [facility] ED by EMS. Developed seizure-like episode in ED. Given Levetiracetam IV and lorazepam. - Hospitalized for further evaluation, but left AMA - Referring to neurology for EEG and further evaluation - Evaluate with RUBI. Seizure-like activity 03/15/2024 Assessment & Plan (11/04/2024 5:03 PM EDT): - 01/28/24, witnessed in ED. Received levetiracetam 1500 mg IV and lorazepam - admitted to [facility], but left AMA - CTA showed no mass, acute hemorrhage / infarct, or flow-limiting stenosis. - Dr. Escalante, neurology regulatory affairs consultant, recommended to evaluate for a new-onset seizure with EEG and continue levetiracetam 500 mg bidlan. Assessment & Plan (08/11/2024 9:03 AM EDT): - 01/28/24, witnessed in ED. Received levetiracetam 1500 mg IV and lorazepam - admitted to [facility], but left AMA - CTA showed no mass, acute hemorrhage / infarct, or flow-limiting stenosis. - Dr. Escalante, neurology regulatory affairs consultant, recommended to evaluate for a new-onset seizure with EEG and continue levetiracetam 500 mg bid - referred to Neurology 03/17/24 for EEG, pt agreed with plan. Assessment & Plan (03/17/2024 5:18 PM EST): - 01/28/24, witnessed in ED. Received levetiracetam 1500 mg IV and lorazepam - admitted to [facility], but left AMA - CTA showed no mass, acute hemorrhage / infarct, or flow-limiting stenosis. - Dr. Escalante, neurology regulatory affairs consultant, recommended to evaluate for a new-onset seizure with EEG and continue levetiracetam 500 mg bid - referred to Neurology 03/17/24 for EEG, pt agreed with plan. Chronic pain of left knee 10/18/2023 Assessment & Plan (11/04/2024 5:06 PM EDT): - patient has not done X-ray, but improving symptoms - use acetaminophen 1 gram every 8 hours prn - will refer him to orthopedist because he is interested in steroid injection Assessment & Plan (10/18/2023 10:28 AM EDT): - evaluate with XR - use acetaminophen 1 gram every 8 hours prn - will refer him to orthopedist because he is interested in steroid injection Varicose veins of both lower extremities with pa in 10/18/2023 Assessment & Plan (11/04/2024 5:10 PM EDT): - recommended appropriate rest and leg elevation - will prescribe compression stockings - if no improvement, will refer him to vascular specialist Assessment & Plan (10/18/2023 10:29 AM EDT): - recommended appropriate rest and leg elevation - will prescribe compression stockings - if no improvement, will refer him to vascular specialist Allergic rhinitis 01/25/2016 History of smoking 01/25/2016 Assessment & Plan (11/04/2024 5:01 PM EDT): - CT showed emphysema; patient does not qualify for lung cancer screening as he quit > 15 years ago Assessment & Plan (03/17/2024 5:21 PM EST): - CT showed emphysema; patient does not qualify for lung cancer screening as he quit > 15 years ago Vitamin D deficiency 01/25/2016 Chronic obstructive lung disease 04/29/2015 Assessment & Plan (11/04/2024 5:02 PM EDT): - CT finding, asymptomatic Gastroesophageal reflux disease 04/29/2015 Malignant tumor of urinary bladder 04/29/2015 Assessment & Plan (11/04/2024 1:23 PM EDT): -Followed by urologist. Last cystoscopy and appointment in Jan 2024; given reassurance and advised to follow up in one year Assessment & Plan (08/11/2024 9:04 AM EDT): -Followed by urologist. Last cystoscopy and appointment in Jan 2024; given reassurance and advised to follow up in one year Assessment & Plan (03/15/2024 5:43 PM EST): [...] year Essential hypertension 12/31/2014 Assessment & Plan (11/04/2024 1:22 PM EDT): -Goal BP < 130/80 per ACC/AHA guideline (Treatment threshold >= 130 ) -BP at within acceptable range, slightly elevated 2nd measurement -Continue working on lifestyle modifications -Continue monitoring home BP. -Continue current medications: Lisinopril 20 mg daily; amlodipine 5 mg daily -Treatment Hx: hydrochlorothiazide was discontinued due to EMILY / CKD. Assessment & Plan (08/11/2024 9:04 AM EDT): -Goal BP < 130/80 per ACC/AHA guideline (Treatment threshold >= 130 ) -BP at within acceptable range, slightly elevated 2nd measurement -Continue working on lifestyle modifications -Continue monitoring home BP. -Continue current medications: Lisinopril 20 mg daily; amlodipine 5 mg daily -Treatment Hx: hydrochlorothiazide was discontinued due to EMILY / CKD. Assessment & Plan (03/17/2024 5:19 PM EST): [...] Generalized anxiety disorder 12/31/2014 Assessment & Plan (11/04/2024 5:12 PM EDT): - GAD7 score 2 on 03/17/24 - Continue current treatment plan per behavioral health service provider Assessment & Plan (08/11/2024 9:05 AM EDT): - GAD7 score 2 on 03/17/24 - Continue current treatment plan per behavioral health service provider Assessment & Plan (03/17/2024 5:22 PM EST): - GAD7 score 2 on 03/17/24 - Continue current treatment plan per behavioral health service provider Major depression 10/14/2012 Assessment & Plan (11/04/2024 5:06 PM EDT): - Hx psychiatric hospitalization in 1998 and 1999 for MDD with SI/SA. - Hx Suicide attempt x 4 - Last hospitalization in [facility] in August 2022 - Current [facility] provider: Moses Lr - Current medications: Mirtazapine 45 mg at bedtime and lorazepam 1 mg prn - PHQ9 score 0 and GAD7 score 2 on 03/17/24 - Continue current treatment plan per behavioral health service provider Assessment & Plan (08/11/2024 9:05 AM EDT): - Hx psychiatric hospitalization in 1998 and 1999 for MDD with SI/SA. - Hx Suicide attempt x 4 - Last hospitalization in [facility] in August 2022 - Current [facility] provider: Moses Lr - Current medications: Mirtazapine 45 mg at bedtime and lorazepam 1 mg prn - PHQ9 score 0 and GAD7 score 2 on 03/17/24 - Continue current treatment plan per behavioral health service provider Assessment & Plan (03/17/2024 5:21 PM EST): - Hx psychiatric hospitalization in 1998 and 1999 for MDD with SI/SA. - Hx Suicide attempt x 4 - Last hospitalization in [facility] in August 2022 - Current [facility] provider: Moses Lr - Current medications: Mirtazapine [...] attempt x 4 - Recent hospitalization at [facility] in August 2022 - Current [facility] provider: Moses Lr - Current medications: Mirtazapine 45 mg at bedtime and lorazepam 1 mg prn Assessment & Plan (12/13/2022 10:16 AM EDT): - Hx psychiatric hospitalization in 1998 and 1999 for MDD with SI/SA. - Hx Suicide attempt x 4 - Recent hospitalization at [facility] in August 2022 - Current [facility] provider: Moses Lr - Current medications: Mirtazapine [...] will benefit from continued OP therapy with [facility]. At this time Hesham Ochoa meets criteria for Visit Diagnoses: Problem List Items Addressed This Visit None Patient ready to address current needs Yes Strengths include access to treatment and motivation for change PLAN: 1. Follow up with [facility]: Not recommended for follow-up 2. Patient goal is to continue OP therapy and explore additional coping mechanisms 3. Behavioral Recommendations a. OP therapy b. Medication management c. Explore additional coping mechanisms Assessment & Plan (09/12/2022 5:54 AM EDT): - Hx psychiatric hospitalization in 1998 and 1999 for MDD with SI/SA. - Hx Suicide attempt x 4 - Recent hospitalization at [facility] in August 2022 - Current [facility] provider: [facility] - Current medications: Mirtazapine 45 mg at bedtime and lorazepam 1 mg prn Diabetes mellitus type 2, controlled 10/14/2012 Assessment & Plan (11/04/2024 1:23 PM EDT): Dx 2011 -Hgb A1c 6.2% on 11/04/2024 -Hgb A1c 6.0% on 08/11/24 -Hgb A1c 6.3% on 10/18/23 -Hgb A1c 5.9% on 03/17/24 -Discontinued metformin in Dec 2018 since A1C has been < 6% without medication. -Continue working on lifestyle modifications. -Check FBG few times a week and as needed when feeling sick. Reviewed and updated diabetes care guidelines. Last eye exam: 07/02/23 Last comprehensive foot exam: 11/03/2024 Last microalbumin test: 05/31/23 no microalbuminuria Last lipid profile: 03/17/24 Last dental exam: Immunizations: Up to date Assessment & Plan (08/12/2024 7:32 AM EDT): Dx 2011 -Hgb A1c 6.0% on 08/11/24 -Hgb A1c 6.3% on 10/18/23 -Hgb A1c [...] test: 05/31/23 no microalbuminuria Last lipid profile: 03/17/24 Last dental exam: Immunizations: Up to date Assessment & Plan (03/17/2024 9:06 AM EST): [...] to date Dyslipidemia 10/14/2012 Assessment & Plan (11/04/2024 1:21 PM EDT): Current medication: Rosuvastatin 20 mg daily (high-intensity) Most recent lipid profile: Last lipid profile: 03/17/24 Continue working on lifestyle modification. Repeat fasting lipid profile annually. Assessment & Plan (08/12/2024 7:33 AM EDT): Current medication: Rosuvastatin 20 mg daily (high-intensity) Most recent lipid profile: Last lipid profile: 03/17/24 Continue working on lifestyle modification. Repeat fasting lipid profile annually. Assessment & Plan (03/15/2024 5:51 PM EST): [...] Encounters Date Type Department Care Team Description 11/12/2024 Refill [facility] [address] [place] [address] Genia Jarquin MD 11/03/2024 10:30 AM EDT Office Visit [facility] [address] [place] [address] Genia Jarquin MD Routine general medical examination at a health care facility (Primary Dx); Heart murmur; Essential hypertension; Controlled type 2 diabetes mellitus without complication, without long-term current use of insulin ([facility]); Malignant neoplasm of urinary bladder, unspecified site ([facility]); Dyslipidemia; Vitamin D deficiency; History of smoking; Syncope, unspecified syncope type; Chronic obstructive pulmonary disease, unspecified COPD type ([facility]); Seizure-like activity ([facility]); Chronic pain of left knee; Episode of recurrent major depressive disorder, unspecified depression episode severity ([facility]); Varicose veins of both lower extremities with pain; Health care maintenance; Generalized anxiety disorder 11/03/2024 Travel 10/31/2024 Telephone [facility] [address] [place] [address] Genia Jarquin MD chartprep 09/22/2024 Telephone [facility] [address] [place] [address] Aleshia Barajas MA august recall 09/15/2024 Refill [facility] [address] [place] [address] Genia Jarquin MD from Last 3 Months Immunizations Immunization Administration Dates Next Due Hep B, adult [...] getting things needed for daily living? No 08/11/2024 Utilities Answer Date Recorded In the past [...] Sign Reading Time Taken Comments Blood Pressure 136/70 11/03/2024 10:56 AM EDT Pulse 72 11/03/2024 10:56 AM EDT Temperature 35.7 C (96.2 F) 11/03/2024 10:56 AM EDT Respiratory Rate 16 11/03/2024 10:56 AM EDT Oxygen Saturation 98% 11/03/2024 10:56 AM EDT Inhaled Oxygen Concentration - - Weight 52.8 kg (116 lb 6.4 oz) 11/03/2024 10:56 AM EDT Height 154.9 cm (5' 1 ) 11/03/2024 10:56 AM EDT Body Mass Index 21.99 11/03/2024 10:56 AM EDT Plan of Treatment Health Maintenance Due Date Last Done Comments Diabetes: Urine Protein Screening 05/30/2024 05/31/2023, 08/25/2021, 04/18/2019 COVID-19 Vaccine ( season) 2024 03/17/2024, 04/04/2023, 06/24/2021, Additional history exists Influenza Vaccine (#1) 2024 , 12/11/2022, 03/07/2021, Additional history exists Diabetes: Hemoglobin A1C 02/03/2025 082 025, 08/11/2024, 03/17/2024, Additional history exists Alcohol/Substance Use Screening 03/17/2025 03/17/2024 Depression Screening 03/17/2025 03/17/2024, 03/17/20 24 Lipid Panel 03/17/2025 03/17/2024, 09/30, 09/12/2022, Additional history exists Eye Exam 07/01/2025 07/02/2023 SDOH Screening 08/11/2025 08/11/2024 Diabetes: Foot Exam 11/03/2025 11/03/2024, 11/03/2024, 11/03/2024, Additional history exists Tobacco Screening 11/04/2025 11/04/2024 DTaP/Tdap/Td Vaccines (4 - Td or Tdap) 09/25/2030 09/25/2020, 04/28/2019, 03/10/2009 Pneumococcal Vaccine: 50+ Years Completed 09/07/2014, 08/24/2014, 11/11/2010 Hepatitis B Vaccines Completed 09/16/2018, 08/08/2016, 07/10/2016 RSV Patients and Patients Aged 60 years or older Completed 05/31/2023 Zoster Vaccines Completed 08/30/2023, 05/04, 09/07/2014 HIB Vaccines Aged Out No longer eligi [...] patient's age to complete this topic Meningococcal B Vaccine Aged Out No l onger eligible based on patient's age to complete [...] 136/70(2024 10:56 AM EDT) No Scooby Dwyer, PharmD Hemoglobin A1c < 7 Result Component 6.2( 10:58 AM EDT) No Scooby Dwyer, Lissette Procedures Procedure Name Priority Date/Time Associated Diagnosis Comments POCT GLUCOSE Routine 11/03/2024 11:00 AM EDT Controlled type 2 diabetes mellitus without complication, without long-term current use of insulin ([facility]) POCT GLYCOSYLATED HEMOGLOBIN (HGB A1C) Routine 11/03/2024 10:58 AM EDT Controlled type 2 diabetes mellitus without complication, without long-term current use of insulin ([facility]) LIPID PANEL WITH REFLEX TO DIRECT LDL Routine 03/17/2024 9:48 AM EST Controlled type 2 diabetes mellitus without complication, without long-term current use of insulin ([facility]) Dyslipidemia HM DIABETES EYE EXAM Routine 07/02/2023 ALBUMIN, RANDOM URINE W/CREATININE Routine 05/31/2023 12:01 PM EST from Last 3 Months or Most Recently Relevant to Health Maintenance Results * POCT glucose manually resulted (11/03/2024 11:00 AM EDT) Glucose Blood, POC 96 60 - 200 mg/dL QC Media Lot # [id number] Lot# Expiration Date [id number] Blood Capillary blood specimen / Unknown 11/03/2024 11:00 AM EDT Genia Jarquin MD POINT OF CARE TEST ENTER/EDIT OR DERABLES Final Result * (ABNORMAL) POCT glycosylated hemoglobin (Hgb A1c) (11/03/2024 10:58 AM EDT) Hemoglobin A1C 6.2(A) 4.0 - 5.7 % QC Media Lot # [id number] Lot# Expiration Date [id number] Blood Capillary blood specimen / Unknown 11/03/2024 10:58 AM EDT Genia Jarquin MD POINT OF CARE TEST ENTER/EDIT OR DERABLES Final Result * Lipid Panel with Reflex to Direct LDL (03/17/2024 9:48 AM EST) Triglycerides 76 <150 mg/dL [facility] Comment:Desirable Triglyceri de: less than 150 mg/dLBorderline High Triglyceride 150-199 mg/dLHigh Triglyceride: 200-499 mg/dLVery High Triglyceride: greater than or equal to 5OO mg/dL Cholesterol 136 <200 mg/dL [facility] Comment:Desirable Cholestero l: less than 200 mg/dLBorderline High Cholesterol: 200-239 mg/dLHigh Cholesterol: greater than 239 mg/dL LDL Cholesterol Calculated 67 <100 mg/dL [facility] Comment:Desirable LDL: less than 100 mg/dLNear Optimal/Above Optimal LDL: 110- 129 mg/dLBorderline High LDL: 130-159 mg/dLHigh LDL: 160-189 mg/dLVery High LDL: greater than or equal to 190 mg/dL HDL Cholesterol 54 >40 mg/dL [facility] Comment:Desirable HDL: great er than 40 mg/dL Note: This HDL assay may give artificially low results in patients with liver disease. Blood 03/17/2024 9:48 AM EST 03/17/2024 12:16 PM EST Genia Jarquin MD LAB BLOOD ORDERABLES Final Resul t [facility] [address] [place] [phone] * Diabetes Eye Exam (07/02/2023) Eye Exam Normal Normal 07/02/2023 Historical Provider HEALTH MAINTENANCE Final Result * Albumin, Random Urine W/Creatinine (05/31/2023 12:01 PM EST) Creatinine, Urine 27.28 mg/dL [facility] Microalbumin Urine <5.0 mg/L [facility] Microalbum Creatinine Ratio Ur TNP <30 ug/mg cr [facility] Comment:Unable to calculate albumin/creatinine ratio due to lowmicroalbumin or creatinine result. 05/31/2023 12:0 1 PM EST 05/31/2023 1:00 PM EST us Genia Jarquin MD LAB URINE ORDERABLES Final Resul t [facility] [address] [place] [address] [phone] from Last 3 Months or Most Recently Relevant to Health Maintenance Insurance [facility] [place] [id number] [address] [place] [address] Care Teams Contract Negotiator Relationship Specialty Start Date End Date Genia Jarquin MD [address] [place], [place] [phone] PCP - General Family Medicine 02/15/12 Scooby Dwyer, TereseD [address] [place], [place] [phone] Pharmacist Internal Medicine 04/23/23 [facility] 09/10/22
--- OUTSIDE RECORDS SUMMARY | 2024-12-09 15:59 | XMS_ITS | Encounter Summary ---
Author Organization [employer] Address [address] [facility] 7[address] [place] [address] Care Team Providers Care Dentistry Professor Name Role Phone Genia Jarquin MD Primary Care Provider [phone] Scooby Dwyer PharmD Unavailable [phone] Encounter Details Date Type Department Care Team ([facility] st Contact Info) Description 10/19/2023 Orders Only [facility] [address] [place], [place] [phone] Genia Jarquin MD [address] [place], [place] [phone] Anemia, unspecified type (Primary Dx); Stage 3a [...] Pressure 136/70(2024 10:56 AM EDT) No Scooby Dwyer PharmD Hemoglobin [...] Reticulocytes Absolute 0.064 0.026 - 0.095 X10*6/uL [facility] Immature Retic Fraction 6.9 2.3 - 13.4 % [facility] Retic HGB Equivalent 36.7(H) 30.0 - 35.0 pg [facility] Reticulocyte Percent 1.6 0.5 - 1.8 % [facility] Blood Venous blood specimen / Unknown 03/17/2024 9:48 AM EST 03/17/2024 12:16 PM EST Genia Jarquin MD LAB BLOOD ORDERABLES Final Resul t Performing Organization Address [facility] Co de Phone Number [facility] [address] [place] [phone] * Vitamin B12 (Cobalamin) and Folate Panel, Serum (03/17/2024 9:48 AM EST) Vitamin B12 334 200 - 900 pg/mL [facility] Comment:NORMAL 200-900 PG/ML INDETERMINATE 160-199 PG/ML DEFICIENT < 160 PG/ML Folate 13.5 > or = 4.0 ng/mL [facility] Comment:Reference Values:> o r = 4.0 ng/mL< 4.0 ng/mL suggests folate deficiency Methotrexate, aminopterin and folinic acid(leucovorin) are chemotherapeutic agents whose molecularstructures are similar to folate; therefore, the Architectfolate assay cannot be used for patients using these drugs. Blood 03/17/2024 9:48 AM EST 03/17/2024 12:16 PM EST Genia Jarquin MD LAB BLOOD ORDERABLES Final Resul t Performing Organization Address [facility]/ZIP Co de Phone Number [facility] [address] [place] [address] [phone] * Pathologist Review - CBC (03/17/2024 9:48 AM EST) Pathologist Review - CBC SEE NOTE [facility] Comment:Normochromic macrocy tic anemia; occasional echinocytes arepresent. The differential includes liver or thyroiddisease, alcohol, monoclonal proteins and myelodysplasticsyndrome, among other etiologies.- Ron Neely M.D. Pathology Blood Venous blood specimen / Unknown 03/17/2024 9:48 AM EST 03/17/2024 12:16 PM EST Genia Jarquin MD LAB BLOOD ORDERABLES Final Resul t Performing Organization Address [facility] Co de Phone Number [facility] [address] [place] [address] [phone] * Iron And Total Iron Binding Capacity (03/17/2024 9:48 AM EST) Iron 98 45 - 160 mcg/dL [facility] Total Iron Binding Capacity 235 228 - 428 mcg/dL [facility] Percent Iron Saturation 42 15 - 50 % [facility] Unsaturated Iron Binding 137 ug/dL [facility] Blood Venous blood specimen / Unknown 03/17/2024 9:48 AM EST 03/17/2024 12:16 PM EST Genia Jarquin MD LAB BLOOD ORDERABLES Final Resul t Performing Organization Address [facility] Co de Phone Number [facility] [address] [place] [address] [phone] * Ferritin (03/17/2024 9:48 AM EST) Ferritin 133 20 - 250 ng/mL [facility] Blood Venous blood specimen / Unknown 03/17/2024 9:48 AM EST 03/17/2024 12:16 PM EST us Genia Jarquin MD LAB BLOOD ORDERABLES Final Resul t [facility] [address] [place] [address] [phone] * (ABNORMAL) CBC auto differential (03/17/2024 9:48 AM EST) White Blood Count 6.4 4.8 - 10.8 X10*3/uL [facility] Red Blood Count 4.07(L) 4.60 - 5.80 X10*6/uL [facility] Hemoglobin 13.5(L) 14.0 - 18.0 g/dl [facility] Hematocrit 40.8(L) 42.0 - 52.0 % [facility] Mean Corpuscular Volume 100.2(H) 80.0 - 98.0 fL [facility] Mean Corpuscular Hemoglobin 33.2(H) 27.0 - 33.0 pg [facility] Mean Corpuscular HGB Conc 33.1 31.0 - 36.0 g/dl [facility] Red Cell Distribution Width 12.3 11.0 - 16.0 % [facility] Platelet Count 146(L) 160 - 400 X10*3/uL [facility] Mean Platelet Volume 11.7 9.4 - 12.4 fL [facility] Neutrophils Percent Auto 52.2 45 - 73 % [facility] Imm Gran Pct Auto 0.3 0.0 - 0.4 % [facility] Lymphocytes Percent Auto 38.3 20 - 40 % [facility] Monocytes Percent Auto 7.3 2 - 11 % [facility] Eosinophils Percent Auto 1.6 0 - 4 % [facility] Basophils Percent Auto 0.3 0 - 2 % [facility] NRBC Pct Auto 0.0 0.0 - 0.2 /100WBC [facility] Neutrophils Absolute Auto 3.3 2.0 - 8.3 x10*3/uL [facility] Imm Gran Abs Auto 0.02 0.00 - 0.03 X10*3/uL [facility] Lymphocytes Absolute Auto 2.5 1.2 - 4.9 X10*3/uL [facility] Monocytes Absolute Auto 0.5 0.1 - 1.2 X10*3/uL [facility] Eosinophils Absolute Auto 0.1 0.0 - 0.4 X10*3/uL [facility] Basophils Absolute Auto 0.0 0.0 - 0.2 X10*3/uL [facility] NRBC Abs Auto 0.000 0.0 - 0.012 X10*3/uL [facility] Blood Venous blood specimen / Unknown 03/17/2024 9:48 AM EST 03/17/2024 12:16 PM EST us Genia Jarquin MD LAB BLOOD ORDERABLES Final Resul t [facility] [address] [place] [phone] documented in this encounter Visit Diagnoses Diagnosis Anemia, unspecified type- Primary Stage 3a chronic kidney disease (CMS/HCC) documented in this encounter Additional Health Concerns Assessment Noted Time PHQ-9 Depression Total Score: 2 10/18/19 24 10:09 AM EDT documented as of this encounter Care Teams Dentistry Professor Relationship Specialty Start Date End Date Genia Jarquin MD [address] [place] [address] PCP - General Family Medicine 02/15/12 Scooby wDyer, TereseD [address] [place] [address] Pharmacist Internal Medicine 04/23/23 Bev Rojas 09/10/22 documented as of this encounter
--- OUTSIDE RECORDS SUMMARY | 2024-12-09 15:59 | XMS_ITS | Encounter Summary ---
Author Organization [employer] Address [address] [facility] [address] [place] [address] Care Team Providers Care Food Broker Name Role Phone Genia Jarquin MD Primary Care Provider [phone] Scooby Dwyer PharmD Unavailable [phone] Reason for Visit * Reason Comments Med Refill Encounter Details Date Type Department Care Team (Late st Contact Info) Description 09/08/2022 Refill [facility] MEDICINE [address] [place], [place] [phone] Genia Jarquin MD [address] [place] [address] Social History Tobacco Use Types Packs/Day Years [...] documented as of this encounter Care Teams Food Broker Relationship Specialty Start Date End Date Genia Jarquin MD [address] [place] [address] PCP - General Family Medicine 02/15/12 Scooby Dwyer, TereseD [address] [place] [address] Pharmacist Internal Medicine 04/23/23 Bev Rojas 09/10/22 documented as of this encounter
--- OUTSIDE RECORDS SUMMARY | 2024-12-09 15:59 | XMS_ITS | Encounter Summary ---
Author Organization [employer] Address [address] [facility] 7[address] [place] [address] Care Team Providers Care Hand Cloth Examiner Name Role Phone Genia Jarquin MD Primary Care Provider Scooby Dwyer PharmD Unavailable [phone] Encounter Details Date Type Department Care Team ([facility] st Contact Info) Description 08/02/2023 [facility] [address] [place], [place] [phone] Genia Jarquin MD [address] [place], [place] [phone] Social History Tobacco Use Types Packs/Day Years [...] 07/02/2023 Historical Provider HEALTH MAINTENANCE Final Result documented in this encounter Visit Diagnoses Not on filedocumented in this encounter Additional Health Concerns Assessment Noted Time PHQ-9 Depression Total Score: 0 09/13/19 23 10:39 AM EDT documented as of this encounter Care Teams Hand Cloth Examiner Relationship Specialty Start Date End Date Genia Jarquin MD [address] [place] [address] PCP - General Family Medicine 02/15/12 Scooby Dwyer PharmD [address] [place] [address] Pharmacist Internal Medicine 04/23/23 Bev Rojas 09/10/22 documented as of this encounter
--- OUTSIDE RECORDS SUMMARY | 2024-12-26 20:00 | XMS_ITS | Clinical Summary ---
Author Organization Unknown Care Team Providers Care Quill Cleaning Machine Operator Name Role Phone EUFEMIA ULLOA, TIFFANY Unavailable Unavailable NANCI OSMAN, DANIELA Unavailable Unavailable Payers Payer Name Policy Type Policy Number Effective Date Expira tion Date [place] [id number] ON DEMAND MEDICARE - [facility] BILLING - ABN [id number] Problems Condition Name Condition Details Condition Category [...] 1 mg tablet 08-26 00:00: 00 Yes [id number] 1 mg ONCE A DAY NEEDED 1 mg ONCE A DAY NEEDED (route: oral) Med Classific ation: Central Nervous System Agents mirtazapine 45 mg tablet 08-26 00:00: 00 Yes [id number] 45 mg AT BEDTIME 45 mg AT BEDTIME (route: oral) Med Classific ation: Central Nervous System Agents amlodipine 5 mg tablet 08-17 00:00: 00 Yes [id number] 5 mg DAILY 5 mg DEBORAH Y (route: oral) Med Classific ation: Cardiovas cular Therapy Agents aspirin 81 mg tablet,yenny yed release 09-09 00:00: 00 Yes [id number] 81 mg DAILY 81 mg DAILY (route: oral) Med Classific ation: Hematolog ical Agents lisinopril 20 mg tablet 09-10 00:00: 00 Yes [id number] 20 mg DAILY 20 mg DAILY (route: oral) Med Classific ation: Cardiovas cular Therapy Agents Vital Signs Vital Name Observation Time Observation Value Commen ts Temperature 2024-12-08 11:39:00.000 97.4 [degF] Temperature 2024-12-05 11:20:00.000 97.5 [degF] Temperature 2024-12-04 10:31:00.000 97.5 [degF] Temperature 2024-12-03 11:10:00.000 97.5 [degF] Temperature 2024-12-02 11:29:00.000 97.4 [degF] Temperature 2024-12-01 12:09:00.000 97.6 [degF] Temperature 2024-11-28 11:56:00.000 97.5 [degF] Temperature 2024-11-27 11:43:00.000 97.5 [degF] Temperature 2024-11-26 12:22:00.000 97.5 [degF] Temperature 2024-11-25 11:24:00.000 97.5 [degF] Temperature 2024-11-24 11:44:00.000 97.5 [degF] Temperature 2024-11-21 11:35:00.000 97.4 [degF] Temperature 2024-11-20 10:13:00.000 97.8 [degF] Temperature 2024-11-06 09:15:00.000 97.6 [degF] Temperature 2024-11-03 08:25:00.000 97 [degF] Pulse 2024-12-01 09:14:00.000 70 /min Pulse 2024-11-25 11:25:00.000 84 /min Pulse 2024-11-12 08:31:00.000 73 /min Pulse 2024-11-11 08:58:00.000 81 /min Pulse 2024-11-10 08:17:00.000 77 /min Pulse 2024-11-07 08:41:00.000 86 /min Pulse 2024-11-06 09:15:00.000 67 /min Pulse 2024-11-04 08:53:00.000 77 /min Pulse 2024-11-03 08:25:00.000 78 /min O2 Saturation (%) 2024-11-03 08:25:00.000 97 % Respirations 2024-12-01 09:14:00.000 16 /min Respirations 2024-11-12 08:31:00.000 16 /min Respirations 2024-11-11 08:58:00.000 16 /min Respirations 2024-11-10 08:17:00.000 16 /min Respirations 2024-11-07 08:41:00.000 16 /min Respirations 2024-11-06 09:15:00.000 16 /min Respirations 2024-11-04 08:53:00.000 16 /min Respirations 2024-11-03 08:25:00.000 16 /min Systolic Blood Pressure 2024-12-01 09:14:00.000 118 mm [Hg] Systolic Blood Pressure 2024-11-25 11:25:00.000 130 mm [Hg] Systolic Blood Pressure 2024-11-12 08:31:00.000 119 mm [Hg] Systolic Blood Pressure 2024-11-11 08:58:00.000 138 mm [Hg] Systolic Blood Pressure 2024-11-10 08:17:00.000 144 mm [Hg] Systolic Blood Pressure 2024-11-07 08:41:00.000 131 mm [Hg] Systolic Blood Pressure 2024-11-06 09:15:00.000 145 mm [Hg] Systolic Blood Pressure 2024-11-04 08:53:00.000 124 mm [Hg] Systolic Blood Pressure 2024-11-03 08:25:00.000 141 mm [Hg] Diastolic Blood Pressure 2024-12-01 09:14:00.000 71 mm [Hg] Diastolic Blood Pressure 2024-11-25 11:25:00.000 68 mm [Hg] Diastolic Blood Pressure 2024-11-12 08:31:00.000 74 mm [Hg] Diastolic Blood Pressure 2024-11-11 08:58:00.000 75 mm [Hg] Diastolic Blood Pressure 2024-11-10 08:17:00.000 78 mm [Hg] Diastolic Blood Pressure 2024-11-07 08:41:00.000 81 mm [Hg] Diastolic Blood Pressure 2024-11-06 09:15:00.000 80 mm [Hg] Diastolic Blood Pressure 2024-11-04 08:53:00.000 77 mm [Hg] Diastolic Blood Pressure 2024-11-03 08:25:00.000 82 mm [Hg] Plan of Treatment Planned Activity [...] GOAL FOR HOME HEALTH.] Future Scheduled Test PATIENT MA Y HAVE ONE SET OF EMERGENCY MEDICATION NOT TO BE PRE-POURED ANY SOONER THAN 24 HOURS BEFORE SEVERE INCLEMENT WEATHER OR EMERGENT EVENT AND FOLLOWING SKILLED NURSE EVALUATION OF PATIENT SAFETY. [code = PATIENT MAY HAVE ONE SET OF EMERGENCY MEDICATION NOT TO BE PRE-POURED ANY SOONER THAN 24 HOURS BEFORE SEVERE INCLEMENT WEATHER OR EMERGENT EVENT AND FOLLOWING SKILLED NURSE EVALUATION OF PATIENT SAFETY.] Future Scheduled Test SKILLED NU RSE TO O/A OF PATIENTS MENTAL/BEHAVIORAL STATUS, ASSESS VITAL SIGNS WEEKLY. ALLOW 2 PRNS FOR MEDICATION MANAGEMENT. [code = SKILLED NURSE TO O/A OF PATIENTS MENTAL/BEHAVIORAL STATUS, ASSESS VITAL SIGNS WEEKLY. ALLOW 2 PRNS FOR MEDICATION MANAGEMENT.] Future [...] Test SKILLED NU RSE TO ADMINISTER MEDICATIONS 5 X WEEK AND PRE-POUR MEDICATIONS 5 X WEEK PER MEDICATION LIST. [code = SKILLED NURSE TO ADMINISTER MEDICATIONS 5 X WEEK AND PRE-POUR MEDICATIONS 5 X WEEK PER MEDICATION LIST.] Future Scheduled Test SKILLED [...] PROBLEMS.] Future Scheduled Test SKILLED NU RSE TO ASSESS PATIENT S PSYCHOSOCIAL STATUS TO IDENTIFY POTENTIAL ISSUES THAT MAY COMPLICATE THE PROVISION OF THE PLAN OF CARE INCLUDING THE PATIENT S ABILITY TO ACCESS COMMUNITY RESOURCES AND PSYCHOSOCIAL SUPPORT SERVICES. [code = SKILLED NURSE TO ASSESS PATIENT S PSYCHOSOCIAL STATUS TO IDENTIFY POTENTIAL ISSUES THAT MAY COMPLICATE THE PROVISION OF THE PLAN OF CARE INCLUDING THE PATIENT S ABILITY TO ACCESS COMMUNITY RESOURCES AND PSYCHOSOCIAL SUPPORT SERVICES.] Future Scheduled Test SKILLED NU RSE WILL MAINTAIN SITUATIONAL AWARENESS FOR SAFETY AND WILL NOTIFY CLINICAL MACHINE DESIGNER AND PHYSICIAN/PROVIDER WITH ANY CHANGE IN CONDITION. [code = SKILLED NURSE WILL MAINTAIN SITUATIONAL AWARENESS FOR SAFETY AND WILL NOTIFY CLINICAL MACHINE DESIGNER AND PHYSICIAN/PROVIDER WITH ANY CHANGE IN CONDITION.] Goal 2022-11-04 Patient Goal - TAKING MY [...] Goal - TAKING MY MED S Goal 2024-10-28 Patient Goal - TAKING MY MED S Goal Patient Goal - TAKING MY MED S Goal Provider Goal - A PLAN OF CARE WILL BE ESTABLISHED THAT MEETS PATIENT'S [facility] NEEDS AND INCLUDES PATIENT GOAL FOR HOME HEALTH. Goal Provider Goal - MEDICATION WILL BE AVAILABLE DURING INCLEMENT WEATHER OR EMERGENT EVENT THROUGHOUT CERTIFICATION PERIOD. Goal Provider Goal - [...] Goal Provider Goal - PATIENT/CAREGIVER WILL VERBALIZE SIGNS AND SYMPTOMS OF HYPERTENSION AND WILL BE ABLE TO DEMONSTRATE ABILITY TO MANAGE EXACERBATION BY END OF THE EPISODE. Goal Provider Goal - PATIENT/CAREGIVER WILL [...] SELF AND OTHERS THROUGHOUT THE CERTIFICATION PERIOD. Encounters Start Date/Time End Date/Time Encounter Type Admission Type Attending [facility] Care Department Encounter ID Discharge Date Discharge Status Discharge Condition Discharge Reason Percent Goals Met 2024-10-29 00:00:00 2024-12-27 00:00:00 Outpatient RECERTIFIC [facility] [id number] 69.57
== END 2024-12-09 13:50 | disposition home or self-care (01) ==
LOC: HO.HSM 13:28
PROVIDERS: PCP Family Medicine; Referring Provider Family Medicine; Visit Provider Psychiatry & Neurology Neurology
DX: G40.909 Epilepsy, unspecified, not intractable, without status epilepticus (principal)
CPT/HCPCS: 99213

== ENCOUNTER → 2024-12-09 13:28 | Outpatient (BNVA) | payer MEDICARE, MEDICAID, SELFPAY | PROVIDERS: PCP Family Medicine; Referring Provider Family Medicine; Visit Provider Psychiatry & Neurology Neurology | DX: G40.909 Epilepsy, unspecified, not intractable, without status epilepticus (principal); I10 Essential (primary) hypertension; E78.5 Hyperlipidemia, unspecified; I67.89 Other cerebrovascular disease | CPT/HCPCS: 99212 ==

== ENCOUNTER 2024-12-30 14:19 | Outpatient (AMB) | payer MEDICARE, MEDICAID, SELFPAY ==
--- NOTE | 2024-12-30 14:41 | A.OFFVIS_ITS ---
Intake Visit Reasons: 1yr cysto Intake Note: Patient is present for Cystoscopy Urology Medication:none Antibiotic Allergy:CIPROFLOXACIN Blood Thinner:ASPIRIN Lot:[id number] Exp:09/09/2027 Aviation Engineer Required: No Accompanied by: Self / Same As Patient Allergies ciprofloxacin (Ciprofloxacin) Allergy (Severe, Verified 12/30/24 14:41) RASH AND ITCHING ALL OVER HPI Comments Details: Carley is a pleasant male. He is seen for the following urologic conditions - bladder cancer - recurring urinary tract infection Yearly follow-up for bladder cancer Clear cystoscopy Bladder cancer initial diagnosis 2004 Bladder cancer superficial low-grade No abnormality noted on prior cystoscopies Cystoscopy - 12/21 NAD, 01/22 NAD PSA have remained low 12/21 0.3 Continue surveillance Recurring UTI Had UTI a prior cystoscopy 11/22 Staphylococcus auricularis [facility] Medical History (Updated 12/09/24 @ 13:42 by Lino Escalante MD) Cerebral microvascular disease Seizure H/O primary malignant neoplasm of urinary bladder High cholesterol Depression Asthma Diabetes HTN (hypertension) Social History Household Members: Spouse and Children Housing: Apartment Are you a primary clinical manager home care to a significant other at home: No Do you presently have visiting nurse or other home services: No Alcohol intake: never Patient Tobacco Use Status: Never used Tobacco Tobacco use type: Cigarette Cigarettes Per Day: 20 e-Cigarette/Vaping Use: Never Used Second Hand Smoke Exposure: Yes Substance Use Type: Tranquilizers service: Yes Sexual orientation: Straight/Heterosexual Review of Systems Const Denies chills and Denies fever(s) Card Reports no additional complaints and Denies syncope Resp Denies cough GI Denies abdominal pain and Denies heartburn Reports as per HPI and Denies change in libido Neuro Denies syncope Psych Denies change in libido Endo Denies change in libido Physical Exam Const General: cooperative, healthy appearing, comfortable and no acute distress Orientation/consciousness: patient oriented x3 HEENT Face and sinus: Yes normal facial exam Mouth: moist mucous membranes Neck Neck: Yes normal visual inspection, Yes full ROM and Yes trachea midline Chest Chest palpation & inspection: normal inspection of the chest Resp Effort & Inspection: normal respiratory effort, able to speak in complete se ntences and no respiratory distress GI Inspection: Yes normal to inspection Back/Spine/Pelvis Cervical Spine: normal cervical lordosis Thoracic/Lumbar Spine: thoracic and lumbar spine normal to inspection Skin General skin exam: no rashes or lesions noted Neuro General: patient oriented x3, gait normal, tone normal and moves all extremities Extrem General: Yes normal to inspection and Yes capillary refill normal Office Procedures Cystoscopy Consent Discussed risk and benefit or proposed procedure with the patient. Information consent for procedure given to the patient. Discussed technical aspects, risks, benefits and alternatives in full. Addressed all of the patient's questions and concerns regarding the procedure. The patient demonstrated knowledge and understanding. They wish to proceed with this procedure. Preparation The patient was prepped in the usual manner. A senior master scheduler was present and in the room. Genitalia was prepped with betadine solution in a sterile manner. Lidocaine Jelly 2% was placed into the urethra and 16Fr flexible Olympus cystoscope was inserted into the meatus after adequate lubrication. Procedure Cystoscopy performed using a disposable Urovue digital 16 Tanzanian cystoscope. Meatus circumcised Urethra anterior and posterior urethra normal Prostatic Urethra unremarkable Bladder examination with retroflexion of cystoscope Bladder Orifices normal shape and position Bladder Capacity Normal Trabeculations Grade 0 Cellule Formation None Diverticulum Formation None Mucosal Erythema None Bladder Tumor None [id number] DISPOSABLE SCOPE URO-G FLEXIBLE SCOPE Procedure code (CPT) selection complete Office Meds lidocaine HCl 2 % mucosal jelly in applicator Performing Provider: Hilton Vivar MD Performing Location: [facility] Administered by: Mayra Guidry RN on 12/30/24 14:59 Dose Route Admin Location Dispensed Lot Number Expiration Date NDC Outside Medical Sales Representative 10 mL intra-urethral 10 mL nitrofurantoin monohydrate/macrocrystals 100 mg capsule Performing Provider: Hilton Vivar MD Performing Location: [facility] Administered by: Mayra Guidry RN on 12/30/24 14:59 Dose Route Admin Location Dispensed Lot Number Expiration Date NDC Outside Medical Sales Representative 100 mg PO 1 cap Results AMB Urinalysis, Automated UA Leukoctes 15 Edwin/uL Last Edit by JOSE J Gonzalez on 12/30/24 16:16 UA Nitrite Last Edit by JOSE J Gonzalez on 12/30/24 16:16 UA Urobilinogen 0.2 mg/dL Last Edit by JOSE J Gonzalez on 12/30/24 16:1 6 UA Protein 0 mg/dL Last Edit by JOSE J Gonzalez on 12/30/24 16:16 UA pH 6.0 Last Edit by JOSE J Gonzalez on 12/30/24 16:16 UA Blood 0 Gage/uL Last Edit by JOSE J Gonzalez on 12/30/24 16:16 UA Specific Dahlgren 1.015 Last Edit by JOSE J Gonzalez on 12/30/24 16: 16 UA Ketone Last Edit by JOSE J Gonzalez on 12/30/24 16:16 UA Bilirubin 0 mg/dL Last Edit by JOSE J Gonzalez on 12/30/24 16:16 UA Glucose 0 mg/dL Last Edit by JOSE J Gonzalez on 12/30/24 16:16 Results Reviewed Results Reviewed: Laboratory Last Values Urine pH (Auto) 6.0 12/30/24 16:14 Specific Dahlgren (Auto) 1.015 12/30/24 16:14 Urine Protein (Auto) 0 mg/dL 12/30/24 16:14 Glucose (UA)(Auto) 0 mg/dL 12/30/24 16:14 Urine Blood (Auto) 0 Gage/uL 12/30/24 16:14 Urine Bilirubin (Auto) 0 mg/dL 12/30/24 16:14 Urine Urobilinogen (Auto) 0.2 mg/dL 12/30/24 16:14 Leukocyte Esterase (Auto) 15 Edwin/uL 12/30/24 16:14 Assessment & Plan Assessment & Plan (1) Bladder cancer: Code(s): C67.9 - Malignant neoplasm of bladder, unspecified Category: Medical Qualifiers: Bladder location: posterior wall Qualified Code(s): C67.4 - Malignant neoplasm of posterior wall of bladder (2) Complicated urinary tract infection: Code(s): N39.0 - Urinary tract infection, site not specified Category: Medical Plan Twelve month follow-up Orders: Orders AMB Urinalysis Automated 12/30/24 Z13.9 - Encounter for screening, unspecified AMB Cystoscopy 12/30/24 C67.4 - Malignant neoplasm of posterior wall of bladder Patient Instructions: This note is constructed using voice recognition software. While every effort has been made to ensure accuracy rf manager errors may have been included. Imaging studies, laboratory and physical exam results were discussed and reviewed in detail. No major barriers to patient understanding were identified. An opportunity to ask questions regarding the treatment plan was provided. All questions were answered. The patient expressed understanding and agreement with the above treatment plan. The patient is aware they should contact our office by phone for worsening of their current condition or the appearance of new urologic symptoms. Compliance is encouraged with any medications and followup testing that is ordered. It is a privilege to participate in the urologic care of your patient. If you have any questions or concerns regarding treatment for the above conditions, or other urologic issues, please do not hesitate to contact me. The office telephone contact is [phone]. Sincerely, Dr Hilton Vivar MD, [facility] - Urology Compassionate Specialist Care for the Genitourinary System Coding Level of Care Code Est Pt Level 3 (28598) Complex EM visit Add On G2211 Diagnoses Malignant neoplasm of posterior wall of urinary bladder C67.4 Bladder location: posterior wall Complicated urinary tract infection N39.0 CPT Codes Cystoscopy - CPT: [id number] ([id number])
--- OUTSIDE RECORDS SUMMARY | 2024-12-30 15:43 | XMS_ITS | Encounter Summary ---
Author Organization [employer] Address [address] [place] [address] Care Team Providers Care Low Pressure Boiler Tender Name Role Phone Genia Jarquin MD Primary Care Provider [phone] Scooby Dwyer PharmD Unavailable [phone] Encounter Details Date Type Department Care Team ([facility] st Contact Info) Description 12/18/2023 Orders Only [facility] [address] [place], [place] [phone] Genia Jarquin MD [address] [place], [place] [phone] Essential hypertension Social History Tobacco Use Types [...] documented as of this encounter Care Teams Low Pressure Boiler Tender Relationship Specialty Start Date End Date Genia Jarquin MD [address] [place] [address] PCP - General Family Medicine 02/15/12 Scooby Dwyer PharmD [address] [place] [address] Pharmacist Internal Medicine 04/23/23 Bev Rojas 09/10/22 documented as of this encounter
--- OUTSIDE RECORDS SUMMARY | 2024-12-30 15:43 | XMS_ITS | Encounter Summary ---
Author Organization [employer] Address [address] [facility] [address] [place] [address] Care Team Providers Care Tube Molder Fiberglass Name Role Phone Genia Jarquin MD Primary Care Provider [phone] Scooby Dwyer PharmD Unavailable [phone] Reason for Visit * Reason Comments Med Refill Encounter Details Date Type Department Care Team (Late st Contact Info) Description 09/08/2022 Refill [facility] [address] [place], [place] [phone] Genia Jarquin MD [address] [place] [address] Social History Tobacco Use Types Packs/Day Years [...] as of this encounter Care Teams Tube Molder Fiberglass Relationship Specialty Start Date End Date Genia Jarquin MD [address] [place] [address] PCP - General Family Medicine 02/15/12 Scooby Dwyer, TereseD [address] [place] [address] Pharmacist Internal Medicine 04/23/23 Bev Rojas 09/10/22 documented as of this encounter
--- OUTSIDE RECORDS SUMMARY | 2024-12-30 15:43 | XMS_ITS | Encounter Summary ---
Author Organization [employer] Address [address] [facility] [address] [place] [address] Care Team Providers Care Research And Development Engineer Name Role Phone Genia Jarquin MD Primary Care Provider [phone] Scooby Dwyer PharmD Unavailable [phone] Encounter Details Date Type Department Care Team ([facility] st Contact Info) Description 08/02/2023 Abstract [facility] [address] [place], [place] [phone] Genia Jarquin MD [address] [place], [place] [phone] Social History Tobacco Use Types Packs/Day Years [...] Pressure 136/70(2024 10:56 AM EDT) No Scooby Dywer PharmD Hemoglobin A1c < 7 Result Component [...] documented as of this encounter Care Teams Research And Development Engineer Relationship Specialty Start Date End Date Genia Jarquin MD [address] [place] [address] PCP - General Family Medicine 02/15/12 Scooby Dwyer PharmD [address] [place] [address] Pharmacist Internal Medicine 04/23/23 Bev Rojas 09/10/22 documented as of this encounter
--- OUTSIDE RECORDS SUMMARY | 2024-12-30 15:43 | XMS_ITS | Encounter Summary ---
Author Organization [employer] Address [address] [facility] [address] [place] [address] Care Team Providers Care Boat Hand Name Role Phone Genia Jarquin MD Primary Care Provider [phone] Scooby Dwyer PharmD Unavailable [phone] Encounter Details Date Type Department Care Team ([facility] st Contact Info) Description 10/19/2023 Orders Only [facility] [address] [place], [place] [phone] Genia Jarquin MD [address] [place], [place] [phone] Anemia, unspecified type (Primary Dx); Stage 3a [...] Reticulocytes Absolute 0.064 0.026 - 0.095 X10*6/uL [facility] Immature Retic Fraction 6.9 2.3 - 13.4 % [facility] Retic HGB Equivalent 36.7(H) 30.0 - 35.0 pg [facility] Reticulocyte Percent 1.6 0.5 - 1.8 % [facility] Blood Venous blood specimen / Unknown 03/17/2024 9:48 AM EST 03/17/2024 12:16 PM EST Genia Jarquin MD LAB BLOOD ORDERABLES Final Resul t Performing Organization Address City/[facility] Co de Phone Number [facility] [address] [place] [phone] * Vitamin B12 (Cobalamin) and Folate Panel, Serum (03/17/2024 9:48 AM EST) Vitamin B12 334 200 - 900 pg/mL [facility] Comment:NORMAL 200-900 PG/ML INDETERMINATE 160-199 PG/ML DEFICIENT < 160 PG/ML Folate 13.5 > or = 4.0 ng/mL [facility] Comment:Reference Values:> o r = 4.0 ng/mL< 4.0 ng/mL suggests folate deficiency Methotrexate, aminopterin and folinic acid(leucovorin) are chemotherapeutic agents whose molecularstructures are similar to folate; therefore, the Architectfolate assay cannot be used for patients using these drugs. Blood 03/17/2024 9:48 AM EST 03/17/2024 12:16 PM EST Genia Jarquin MD LAB BLOOD ORDERABLES Final Resul t Performing Organization Address City/[facility]/ZIP Co de Phone Number [facility] [address] [place] [address] [phone] * Pathologist Review - CBC (03/17/2024 9:48 AM EST) Pathologist Review - CBC SEE NOTE [facility] Comment:Normochromic macrocy tic anemia; occasional echinocytes arepresent. The differential includes liver or thyroiddisease, alcohol, monoclonal proteins and myelodysplasticsyndrome, among other etiologies.- Ron Neely M.D. Pathology Blood Venous blood specimen / Unknown 03/17/2024 9:48 AM EST 03/17/2024 12:16 PM EST Genia Jarquin MD LAB BLOOD ORDERABLES Final Resul t Performing Organization Address [facility] Co de Phone Number [facility] [address] [place] [address] [phone] * Iron And Total Iron Binding Capacity (03/17/2024 9:48 AM EST) Iron 98 45 - 160 mcg/dL [facility] Total Iron Binding Capacity 235 228 - 428 mcg/dL [facility] Percent Iron Saturation 42 15 - 50 % [facility] Unsaturated Iron Binding 137 ug/dL [facility] Blood Venous blood specimen / Unknown 03/17/2024 9:48 AM EST 03/17/2024 12:16 PM EST Genia Jarquin MD LAB BLOOD ORDERABLES Final Resul t Performing Organization Address [facility] Co de Phone Number [facility] [address] [place] [address] [phone] * Ferritin (03/17/2024 9:48 AM EST) Ferritin 133 20 - 250 ng/mL [facility] Blood Venous blood specimen / Unknown 03/17/2024 9:48 AM EST 03/17/2024 12:16 PM EST us Genia Jarquin MD LAB BLOOD ORDERABLES Final Resul t [facility] [address] [place] [address] [phone] * (ABNORMAL) CBC auto differential (03/17/2024 9:48 AM EST) White Blood Count 6.4 4.8 - 10.8 X10*3/uL [facility] Red Blood Count 4.07(L) 4.60 - 5.80 X10*6/uL [facility] Hemoglobin 13.5(L) 14.0 - 18.0 g/dl [facility] Hematocrit 40.8(L) 42.0 - 52.0 % [facility] Mean Corpuscular Volume 100.2(H) 80.0 - 98.0 fL [facility] Mean Corpuscular Hemoglobin 33.2(H) 27.0 - 33.0 pg [facility] Mean Corpuscular HGB Conc 33.1 31.0 - 36.0 g/dl [facility] Red Cell Distribution Width 12.3 11.0 - 16.0 % [facility] Platelet Count 146(L) 160 - 400 X10*3/uL [facility] Mean Platelet Volume 11.7 9.4 - 12.4 fL [facility] Neutrophils Percent Auto 52.2 45 - 73 % [facility] Imm Gran Pct Auto 0.3 0.0 - 0.4 % [facility] Lymphocytes Percent Auto 38.3 20 - 40 % [facility] Monocytes Percent Auto 7.3 2 - 11 % [facility] Eosinophils Percent Auto 1.6 0 - 4 % [facility] Basophils Percent Auto 0.3 0 - 2 % [facility] NRBC Pct Auto 0.0 0.0 - 0.2 /100WBC [facility] Neutrophils Absolute Auto 3.3 2.0 - 8.3 x10*3/uL [facility] Imm Gran Abs Auto 0.02 0.00 - 0.03 X10*3/uL [facility] Lymphocytes Absolute Auto 2.5 1.2 - 4.9 X10*3/uL [facility] Monocytes Absolute Auto 0.5 0.1 - 1.2 X10*3/uL [facility] Eosinophils Absolute Auto 0.1 0.0 - 0.4 X10*3/uL [facility] Basophils Absolute Auto 0.0 0.0 - 0.2 X10*3/uL [facility] NRBC Abs Auto 0.000 0.0 - 0.012 X10*3/uL [facility] Blood Venous blood specimen / Unknown 03/17/2024 9:48 AM EST 03/17/2024 12:16 PM EST us Genia Jarquin MD LAB BLOOD ORDERABLES Final Resul t [facility] [address] [place] [address] [phone] documented in this encounter Visit Diagnoses Diagnosis Anemia, unspecified type- Primary Stage 3a chronic kidney disease (CMS/HCC) (HCC) documented in this encounter Additional Health Concerns Assessment Noted Time PHQ-9 Depression Total Score: 2 10/18/19 24 10:09 AM EDT documented as of this encounter Care Teams Boat Hand Relationship Specialty Start Date End Date Genia Jarquin MD [address] [place] [address] PCP - General Family Medicine 02/15/12 Scooby Dwyer, TereseD [address] [place] [address] Pharmacist Internal Medicine 04/23/23 Bev Rojas 09/10/22 documented as of this encounter
--- OUTSIDE RECORDS SUMMARY | 2024-12-30 15:43 | XMS_ITS | Clinical Summary ---
Author Organization [employer] Address [address] [facility] 7[address] [place] [address] Care Team Providers Care Evaluation Analyst Name Role Phone Genia Jarquin MD Primary Care Provider [phone] Scooby Dwyer PharmD Unavailable [phone] Allergies Active Allergy Reactions Criticality Noted Date [...] fever 90 tablet 1 10/18/19 24 Active aspirin (Aspirin Low Dose) 81 [...] DAY 90 tablet 3 11/13/19 25 Active amLODIPine (Norvasc) 5 MG tabletIndications :Essential hypertension TAKE 1 TABLET BY MOUTH EVERY DAY 90 tablet 3 12/12/19 25 Active amLODIPine (Norvasc) 5 MG tabletIndications :Essential hypertension Take 1 tablet by mouth daily 90 tablet 3 12/18/19 24 025 Discontinued Active Problems Problem Noted [...] stenosis -Await for CDTM; consider referral to mobile ui/ux designer Assessment & Plan (08/12/2024 7:31 AM EDT): - Ordered Transthoracic Echo (TTE) Complete 08/11/24 Syncopal episodes 03/17/2024 Assessment & Plan (11/04/2024 5:02 PM EDT): - 01/28/24 Taken to [facility] ED by EMS. Developed seizure-like episode in ED. Given Levetiracetam IV and lorazepam. - Hospitalized for further evaluation, but left AMA - Referred to neurology for EEG and further evaluation. Seen by Dr. Escalante on 05/01/24 and EEG was ordered. Patient was prescribed levetiracetam 500 mg bid. - Patient currently has RUBI Assessment & Plan (08/16/2024 7:43 AM EDT): - 01/28/24 Taken to [facility] ED by EMS. Developed seizure-like episode in ED. Given Levetiracetam IV and lorazepam. - Hospitalized for further evaluation, but left AMA - Referred to neurology for EEG and further evaluation. Seen by Dr. Escalante on 1/30/25 and EEG was ordered. Patient was prescribed levetiracetam 500 mg bid. - Ordered RUBI, but patient has not done it yet Assessment & Plan (03/17/2024 5:18 PM EST): - 01/28/24 Taken to [facility] ED by EMS. Developed seizure-like episode in ED. Given Levetiracetam IV and lorazepam. - Hospitalized for further evaluation, but left AMA - Referring to neurology for EEG and further evaluation - Evaluate with RUBI. Seizure-like activity (CMS/HCC) 03/15/2024 Assessment & Plan (11/04/2024 5:03 PM EDT): - 01/28/24, witnessed in ED. Received levetiracetam 1500 mg IV and lorazepam - admitted to [facility], but left AMA - CTA showed no mass, acute hemorrhage / infarct, or flow-limiting stenosis. - Dr. Escalante, neurology program evaluation consultant, recommended to evaluate for a new-onset seizure with EEG and continue levetiracetam 500 mg bidlan. Assessment & Plan (08/11/2024 9:03 AM EDT): - 01/28/24, witnessed in ED. Received levetiracetam 1500 mg IV and lorazepam - admitted to [facility], but left AMA - CTA showed no mass, acute hemorrhage / infarct, or flow-limiting stenosis. - Dr. Escalante, neurology program evaluation consultant, recommended to evaluate for a new-onset seizure with EEG and continue levetiracetam 500 mg bid - referred to Neurology 03/17/24 for EEG, pt agreed with plan. Assessment & Plan (03/17/2024 5:18 PM EST): - 01/28/24, witnessed in ED. Received levetiracetam 1500 mg IV and lorazepam - admitted to [facility], but left AMA - CTA showed no mass, acute hemorrhage / infarct, or flow-limiting stenosis. - Dr. Escalante, neurology program evaluation consultant, recommended to evaluate for a new-onset [...] attempt x 4 - Last hospitalization in [facility] in August 2022 - Current [facility] provider: Moses Lr - Current medications: [...] attempt x 4 - Last hospitalization in [facility] in August 2022 - Current [facility] provider: Moses Lr - Current medications: [...] attempt x 4 - Last hospitalization in [facility] in August 2022 - Current [facility] provider: Moses Lr - Current medications: [...] attempt x 4 - Recent hospitalization at [facility] in August 2022 - Current [facility] provider: Moses Lr - Current medications: Mirtazapine 45 mg at bedtime and lorazepam 1 mg prn Assessment & Plan (12/13/2022 10:16 AM EDT): - Hx psychiatric hospitalization in 1998 and 1999 for MDD with SI/SA. - Hx Suicide attempt x 4 - Recent hospitalization at [facility] in August 2022 - Current [facility] provider: Moses Lr - Current medications: [...] will benefit from continued OP therapy with [facility]. At this time Hesham Ochoa meets criteria for Visit Diagnoses: Problem List Items Addressed This Visit None Patient ready to address current needs Yes Strengths include access to treatment and motivation for change PLAN: 1. Follow up with [facility]: Not recommended for follow-up 2. Patient goal is to continue OP therapy and explore additional coping mechanisms 3. Behavioral Recommendations a. OP therapy b. Medication management c. Explore additional coping mechanisms Assessment & Plan (09/12/2022 5:54 AM EDT): - Hx psychiatric hospitalization in 1998 and 1999 for MDD with SI/SA. - Hx Suicide attempt x 4 - Recent hospitalization at [facility] in August 2022 - Current [facility] provider: [facility] - Current medications: Mirtazapine 45 mg at [...] 20 mg daily Most recent lipid profile: 8/30/21 TC 149; TG 112; HDL 49; LDL 79 According to 2013 ACC/AHA guideline, 10-year ASCVD risk is 31.1 % and high- intensity statin therapy is recommended. We will continue current medication at this time. Continue working on lifestyle modification. Repeat fasting lipid profile annually. Resolved Problems Problem Noted Date Diagnosed Date Resolved Date Stage 3a chronic kidney disease (CMS/HCC) 03/20/2017 03/17/2024 Encounters Date Type Department Care Team Description 12/11/2024 Refill [facility] [address] [facility] [place] [address] Genia Jarquin MD Essential hypertension 12/10/2024 Telephone [facility] [address] [place] [address] Genia Jarquin MD january11/12/2024 Refill [facility] [address] [facility] [place] [address] Genia Jarquin MD 11/03/2024 10:30 AM EDT Office Visit [facility] [place] [address] Genia Jarquin MD Routine general medical examination at a health care facility (Primary Dx); Heart murmur; Essential hypertension; Controlled type 2 diabetes mellitus without complication, without long-term current use of insulin ([facility]); Malignant neoplasm of urinary bladder, unspecified site ([facility]); Dyslipidemia; Vitamin D deficiency; History of smoking; Syncope, unspecified syncope type; Chronic obstructive pulmonary disease, unspecified COPD type ([facility]); Seizure-like activity ([facility]); Chronic pain of left knee; Episode of recurrent major depressive disorder, unspecified depression episode severity ([facility]); Varicose veins of both lower extremities with pain; Health care maintenance; Generalized anxiety disorder 11/03/2024 Travel 10/31/2024 Telephone [facility] [address] [facility] [place] [address] Genia Jarquin MD chartprep from Last 3 Months Immunizations Immunization Administration [...] Additional history exists Diabetes: Hemoglobin A1C 02/03/2025 08 025, 08/11/2024, 03/17/2024, Additional history exists Alcohol/Substance [...] Result Component 6.2( 10:58 AM EDT) No Dwyer, Scooby, PharmD Procedures Procedure Name Priority Date/Time Associated Diagnosis Comments POCT GLUCOSE Routine 11/03/2024 11:00 AM EDT Controlled type 2 diabetes mellitus without complication, without long-term current use of insulin ([facility]) POCT GLYCOSYLATED HEMOGLOBIN (HGB A1C) Routine 11/03/2024 10:58 AM EDT Controlled type 2 diabetes mellitus without complication, without long-term current use of insulin ([facility]) LIPID PANEL WITH REFLEX TO DIRECT LDL Routine 03/17/2024 9:48 AM EST Controlled type 2 diabetes mellitus without complication, without long-term current use of insulin ([facility]) Dyslipidemia HM DIABETES EYE EXAM Routine 07/02/2023 ALBUMIN, RANDOM URINE W/CREATININE Routine 05/31/2023 12:01 PM EST from Last 3 Months or Most Recently Relevant to Health Maintenance Results * POCT glucose manually resulted (11/03/2024 11:00 AM EDT) Glucose Blood, POC 96 60 - 200 mg/dL QC Media Lot # [id number] Lot# Expiration Date 090 Blood Capillary blood specimen / Unknown 11/03/2024 11:00 AM EDT Genia Jarquin MD POINT OF CARE TEST ENTER/EDIT OR DERABLES Final Result * (ABNORMAL) POCT glycosylated hemoglobin (Hgb A1c) (11/03/2024 10:58 AM EDT) Hemoglobin A1C 6.2(A) 4.0 - 5.7 % QC Media Lot # [id number] Lot# Expiration Date Blood Capillary blood specimen / Unknown 11/03/2024 10:58 AM EDT Genia Jarquin MD POINT OF CARE TEST ENTER/EDIT OR DERABLES Final Result * Lipid Panel with Reflex to Direct LDL (03/17/2024 9:48 AM EST) Triglycerides 76 <150 mg/dL [facility] Comment:Desirable Triglyceri de: less than 150 mg/dLBorderline High Triglyceride 150-199 mg/dLHigh Triglyceride: 200-499 mg/dLVery High Triglyceride: greater than or equal to 5OO mg/dL Cholesterol 136 <200 mg/dL [facility] Comment:Desirable Cholestero l: less than 200 mg/dLBorderline High Cholesterol: 200-239 mg/dLHigh Cholesterol: greater than 239 mg/dL LDL Cholesterol Calculated 67 <100 mg/dL [facility] Comment:Desirable LDL: less than 100 mg/dLNear Optimal/Above Optimal LDL: 110- 129 mg/dLBorderline High LDL: 130-159 mg/dLHigh LDL: 160-189 mg/dLVery High LDL: greater than or equal to 190 mg/dL HDL Cholesterol 54 >40 mg/dL [facility] Comment:Desirable HDL: great er than 40 mg/dL Note: This HDL assay may give artificially low results in patients with liver disease. Blood 03/17/2024 9:48 AM EST 03/17/2024 12:16 PM EST Genia Jarquin MD LAB BLOOD ORDERABLES Final Resul t [facility] [address] [place], [place] [phone] * Diabetes Eye Exam (07/02/2023) Eye Exam Normal Normal 07/02/2023 Onur Provider HEALTH MAINTENANCE Final Result * Albumin, Random Urine W/Creatinine (05/31/2023 12:01 PM EST) Creatinine, Urine 27.28 mg/dL [facility] Microalbumin Urine <5.0 mg/L [facility] Microalbum Creatinine Ratio Ur TNP <30 ug/mg cr [facility] Comment:Unable to calculate albumin/creatinine ratio due to lowmicroalbumin or creatinine result. 05/31/2023 12:0 1 PM EST 05/31/2023 1:00 PM EST us Genia Jarquin MD LAB URINE ORDERABLES Final Resul t [facility] [address] [place] [phone] from Last 3 Months or Most Recently Relevant to Health Maintenance Insurance [facility] STANDARD MEDICARE [address] [place] [id number] Care Teams Evaluation Analyst Relationship Specialty Start Date End Date Genia Jarquin MD [address] [place] [address] PCP - General Family Medicine 02/15/12 Scooby Dwyer, PharmD [address] [place] [phone] Pharmacist Internal Medicine 04/23/23 Bev Rojas 09/10/22
--- OUTSIDE RECORDS SUMMARY | 2025-02-24 20:00 | XMS_ITS | Clinical Summary ---
Author Organization Unknown Care Team Providers Care Denture Laboratory Technician Name Role Phone EUFEMIA ULLOA, TIFFANY Unavailable Unavailable NANCI OSMAN, DANIELA Unavailable Unavailable Payers Payer Name Policy Type Policy Number Effective Date Expira tion Date [place] - AB[place] [id number] ON DEMAND MEDICARE - [facility] BILLING - ABN [id number] Problems Condition Name Condition Details Condition Category [...] 1 mg tablet 08-26 00:00: 00 Yes [id number] 1 mg ONCE A DAY NEEDED 1 mg ONCE A DAY NEEDED (route: oral) Med Classific ation: Central Nervous System Agents mirtazapine 45 mg tablet 08-26 00:00: 00 Yes [id number] 45 mg AT BEDTIME 45 mg AT BEDTIME (route: oral) Med Classific ation: Central Nervous System Agents amlodipine 5 mg tablet 08-17 00:00: 00 Yes [id number] 5 mg DAILY 5 mg DEBORAH Y (route: oral) Med Classific ation: Cardiovas cular Therapy Agents aspirin 81 mg tablet,yenny yed release 09-09 00:00: 00 Yes [id number] 81 mg DAILY 81 mg DAILY (route: oral) Med Classific ation: Hematolog ical Agents lisinopril 20 mg tablet 09-10 00:00: 00 Yes [id number] 20 mg DAILY 20 mg DAILY (route: oral) Med Classific ation: Cardiovas cular Therapy Agents Vital Signs Vital Name Observation Time Observation Value Commen ts Temperature 2024-12-29 12:10:00.000 98.1 [degF] Plan of Treatment Planned Activity Planned [...] HEALTH.] Future Scheduled Test SKILLED NU RSE TO [...] INSTRUCTION TO PATIENT/CAREGIVER RELATED TO DISCHARGE PLANNING.] Future Scheduled Test SKILLED NU RSE WILL MAINTAIN SITUATIONAL AWARENESS FOR SAFETY AND WILL NOTIFY CLINICAL LENS MOLD SETTER AND PHYSICIAN/PROVIDER WITH ANY CHANGE IN CONDITION. [code = SKILLED NURSE WILL MAINTAIN SITUATIONAL AWARENESS FOR SAFETY AND WILL NOTIFY CLINICAL LENS MOLD SETTER AND PHYSICIAN/PROVIDER WITH ANY CHANGE IN CONDITION.] [...] FIVE TIMES A WEEK AND PRE-POUR MEDICATIONS PER MEDICATION LIST. [code = SKILLED NURSE TO ADMINISTER MEDICATIONS FIVE TIMES A WEEK AND PRE-POUR MEDICATIONS PER MEDICATION LIST.] Future Scheduled Test SKILLED NU RSE FOR MEDICATION ADMINISTRATION PER MEDICATION LIST TO BE PERFORMED FIVE TIMES A WEEK [code = SKILLED NURSE FOR MEDICATION ADMINISTRATION PER MEDICATION LIST TO BE PERFORMED FIVE TIMES A WEEK] Future Scheduled Test SKILLED NU RSE FOR [...] INTERVENTION.] Future Scheduled Test SKILLED NU RSE FOR [...] SERVICES.] Future Scheduled Test SKILLED NU RSE FOR O/A OF CLIENT'S SOCIAL ISOLATION AND PROVIDE ASSISTANCE TO CLIENT IN DEVELOPMENT OF PLANNED ACTIVITIES [code = SKILLED NURSE FOR O/A OF CLIENT'S SOCIAL ISOLATION AND PROVIDE ASSISTANCE TO CLIENT IN DEVELOPMENT OF PLANNED ACTIVITIES] Goal 2022-11-04 Patient Goal - TAKING MY MED S Goal 2023-08-31 Patient Goal - TAKING MY MED S Goal 2023-07-02 Patient Goal - TAKING MY MED S Goal 2023-05-03 Patient Goal - TAKING MY MED S Goal 2023-03-05 Patient Goal - TAKING MY MED S Goal 2023-01-03 Patient Goal - TAKING MY MED S Goal Patient Goal - TAKING MY MED S Goal 2024-12-23 Patient Goal - TAKING MY MED S [...] BY THE END OF THE CERTIFICATION PERIOD. Encounters Start Date/Time End Date/Time Encounter Type Admission Type Attending [facility] Care Department Encounter ID Discharge Date Discharge Status Discharge Condition Discharge Reason Percent Goals Met 2024-12-28 00:00:00 2025-02-25 00:00:00 Outpatient [facility] [id number] 3.85
== END 2024-12-30 16:11 | disposition home or self-care (01) ==
PROVIDERS: PCP Family Medicine; Visit Provider Urology
DX: C67.4 Malignant neoplasm of posterior wall of bladder (principal)
CPT/HCPCS: 52000; 99213

== ENCOUNTER → 2024-12-30 14:19 | Outpatient (BNVA) | payer MEDICARE, MEDICAID, SELFPAY | PROVIDERS: PCP Family Medicine; Visit Provider Urology | DX: C67.4 Malignant neoplasm of posterior wall of bladder (principal); N39.0 Urinary tract infection, site not specified; Z13.9 Encounter for screening, unspecified | CPT/HCPCS: 52000; 81003; 99212 ==

== ENCOUNTER 2025-02-23 11:53 | Outpatient (REF) | payer MEDICARE, MEDICAID, SELFPAY ==
--- OUTSIDE RECORDS SUMMARY | 2025-02-23 11:30 | XMS_ITS | Encounter Summary ---
Author Organization [employer] Address [address] [facility] 7t [place] [address] Care Team Providers Care Linting Machine Operator Name Role Phone Genia Jarquin MD Primary Care Provider [phone] Scooby Dwyer PharmD Unavailable [phone] Reason for Referral * Imaging (Routine) - Authorized Specialty Diagnoses / Procedures Referred By Contac t Referred To Contact Cardiology Diagnoses Left carotid artery stenosis Procedures Vascular US carotid artery duplex bilateral Genia Jarquin MD [address] [place] [address] Phone: tel: fax: [facility] [address] [place] [phone] Phone: tel: fax: Referral ID Status Reason Start Date Expiration Date Visits Requested Visits Authorized [id number] Authorized Perform Procedure 02/23/2026 1 1 Reason for Visit * Reason Comments Follow-up Diabetes Hypertension Encounter Details Date Type Department Care Team (Late st Contact Info) Description 02/23/2025 11:30 AM EST Office Visit [facility] [address] [place], [place] [phone] Genia Jarquin MD [address] [place], [place] [phone] Dyslipidemia (Primary Dx); Essential hypertension; Allergic rhinitis, unspecified seasonality, unspecified trigger; Diabetes mellitus type 2, controlled (HCC); Vitamin D deficiency; Gastroesophageal reflux disease, unspecified whether esophagitis present; Malignant neoplasm of urinary bladder, unspecified site ([facility]); Episode of recurrent major depressive disorder, unspecified depression episode severity (CMS/HCC); Generalized anxiety disorder; Generalized seizure disorder (CMS/HCC) ([facility]); Encounter for immunization; Left carotid artery stenosis; Heart murmur; Stenosis of left carotid artery Social History Tobacco Use Types Packs/Day Years [...] the past 12 months, has t he [employer], gas, oil or water [employer] threatened to shut off services in your [...] AM EDT documented as of this encounter Last Filed Vital Signs Vital Sign Reading Time Taken Comments Blood Pressure 150/68 02/23/2025 11:21 AM EST Pulse 72 02/23/2025 11:12 AM EST Temperature 35.5 C (95.9 F) 02/23/2025 11:12 AM EST Respiratory Rate 19 02/23/2025 11:12 AM EST Oxygen Saturation 99% 02/23/2025 11:12 AM EST Inhaled Oxygen Concentration - - Weight 53.8 kg (118 lb 9.6 oz) 02/23/2025 11:12 AM EST Height 162.6 cm (5' 4 ) 02/23/2025 11:12 AM EST Body Mass Index 20.36 02/23/2025 11:12 AM EST documented in this encounter Miscellaneous Notes * Assessment & Plan Note - Genia Jarquin MD - 02/23/2025 12:25 PM ESTAssociated Problem(s): Essential hypertension -Goal BP < 130/80 per ACC/AHA guideline (Treatment threshold >= 130 ) -BP elevated today -Continue working on lifestyle modifications -Continue monitoring home BP. -Continue current medications: Lisinopril 20 mg daily; amlodipine 5 mg daily -Treatment Hx: hydrochlorothiazide was discontinued due to EMILY / CKD. * Assessment & Plan Note - Genia Jarquin MD - 02/23/2025 12:20 PM ESTAssociated Problem(s): Carotid stenosis - CTA in Jan 2024 showed: Right Common Carotid Artery: No focal stenosis or occlusion; Cervical Right Internal Carotid Artery: Mild calcific atherosclerotic disease of the carotid bulb and proximal internal carotid artery without flow- limiting stenosis. Left Common Carotid Artery: No focal stenosis or occlusion. Cervical Left Internal Carotid Artery: Calcific atherosclerotic disease of the carotid bulb and proximal internal carotid artery causing less than 50% stenosis. * Assessment & Plan Note - Genia Jarquin MD - 02/23/2025 12:17 PM ESTAssociated Problem(s): Heart murmur - Echo (TTE) 10/15/24: Normal left ventricular systolic function. Ejection fraction 58%. Moderate aortic valve stenosis. - Murmur most likely due to aortic stenosis - Asymptomatic - Active surveillance with annual transthoracic echocardiogram * Assessment & Plan Note - Genia Jarquin MD - 02/23/2025 5:59 AM ESTAssociated Problem(s): Generalized seizure disorder (CMS/HCC) (HCC) - Following with neurologist, [facility], last seen on 12/09/2024. - Last episode: 2 conversions in January 2024 - EEG in May 2024 normal - MRI in January 2024 showed moderate microvascular disease, meningeal hyperintensity on left side. - CT brain in January 2024 no significant abnormality - CTA brain and neck in January 2024 within normal limits - Currently prescribed levetiracetam 500 mg twice daily - Driving precaution documented in this encounter Plan of Treatment Not on file documented as of this encounter Goals Goal Patient Goal Type Associated Problems Recent Progress Patient-Stated? Author Blood Pressure < 140/90 Blood Pressure 150/68(2024 11:21 AM EST) No Scooby Dwyer, Lissette Hemoglobin A1c < 7 Result Component 6.3( 11:37 AM EST) No Scooby Dwyer PharmD Help patients manage their type 2 diabetes Care Plan Help patients manage their type 2 diabetes No Tiff Paulson MA Weekly blood pressure task Care Plan Weekly blood pressure task No Tiff Paulson MA Help patients manage their type 2 diabetes Care Plan Help patients manage their type 2 diabetes No Tiff Paulson MA Patient has chronic kidney disease Care Plan Patient has chronic kidney disease No Tiff Paulson MA Weekly blood pressure task Care Plan Weekly blood pressure task No Tiff Paulson MA Patient has chronic kidney disease Care Plan Patient has chronic kidney disease No Tiff Paulson MA Weekly blood pressure task Care Plan Weekly blood pressure task No Tiff Paulson MA Weekly blood pressure task Care Plan Weekly blood pressure task No Tiff Paulson MA Patient has chronic kidney disease Care Plan Patient has chronic kidney disease Tiff Beck MA Patient has chronic kidney disease Care Plan Patient has chronic kidney disease Tiff Beck MA documented as of this encounter Procedures Procedure Name Priority Date/Time Associated Diagnosis Comments POCT GLYCOSYLATED HEMOGLOBIN (HGB A1C) Routine 02/23/2025 11:37 AM EST Diabetes mellitus type 2, controlled (HCC) POCT GLUCOSE Routine 02/23/2025 11:37 AM EST Diabetes mellitus type 2, controlled (HCC) documented in this encounter Results * (ABNORMAL) POCT glycosylated hemoglobin (Hgb A1c) (02/23/2025 11:37 AM EST) Hemoglobin A1C 6.3(A) 4.0 - 5.7 % QC Media Lot # [id number] Lot# Expiration Date 189,652 Blood Capillary blood specimen / Unknown 02/23/2025 11:37 AM EST us Genia Jarquin MD POINT OF CARE TEST ENTER/EDIT OR DERABLES Final Result * POCT glucose manually resulted (02/23/2025 11:37 AM EST) Glucose Blood, POC 155 60 - 200 mg/dL QC Media Lot # [id number] Lot# Expiration Date ,653,705 Blood Capillary blood specimen / Unknown 02/23/2025 11:37 AM EST us Genia Jarquin MD POINT OF CARE TEST ENTER/EDIT OR DERABLES Final Result documented in this encounter Visit Diagnoses Diagnosis Dyslipidemia- Primary Other and unspecified hyperlipidemia Essential hypertension Unspecified essential hypertension Allergic rhinitis, unspecified seasonality, unspecified trigger Diabetes mellitus type 2, controlled (HCC) Type II or unspecified type diabetes mellitus without mention of complication, not stated as uncontrolled Vitamin D deficiency Gastroesophageal reflux disease, unspecified whether esophagitis present Malignant neoplasm of urinary bladder, unspecified site ([facility]) Episode of recurrent major depressive disorder, unspecified depression episode severity (CMS/HCC) Generalized anxiety disorder Generalized seizure disorder (CMS/HCC) (HCC) Unspecified epilepsy without mention of intractable epilepsy Encounter for immunization Left carotid artery stenosis Heart murmur Undiagnosed cardiac murmurs Stenosis of left carotid artery Occlusion and stenosis of carotid artery without mention of cerebral infarction documented in this encounter Additional Health Concerns Active Problems Noted Date Diagnosed Date Help patients manage their type 2 diabetes 02/20 Weekly blood pressure task 02/20/2025 Help patients manage their type 2 diabetes 02/20 Patient has chronic kidney disease 02/20/2025 Weekly blood pressure task 02/20/2025 Patient has chronic kidney disease 02/20/2025 Weekly blood pressure task 02/20/2025 Weekly blood pressure task 02/20/2025 Patient has chronic kidney disease 02/20/2025 Patient has chronic kidney disease 02/20/2025 Assessment Noted Time PHQ-9 Depression Total Score: 0 03/17/20 9:06 AM EST documented as of this encounter Care Teams Linting Machine Operator Relationship Specialty Start Date End Date Genia Jarquin MD [address] [place] [address] PCP - General Family Medicine 02/15/12 Scooby Dwyer, TereseD [address] [place] [address] Pharmacist Internal Medicine 04/23/23 Bev Rojas 09/10/22 documented as of this encounter
--- OUTSIDE RECORDS SUMMARY | 2025-02-23 15:51 | XMS_ITS | Encounter Summary ---
Author Organization [employer] Address [address] [facility] [address] [address] [place] [address] Care Team Providers Care Scaffolding Helper Name Role Phone Genia Jarquin MD Primary Care Provider [phone] Scooby Dwyer PharmD Unavailable [phone] Encounter Details Date Type Department Care Team ([facility] st Contact Info) Description 02/20/2025 Telephone [facility] [address] [place], [place] [phone] Tiff Paulson MA Social History Tobacco Use Types Packs/Day Years [...] encounter Miscellaneous Notes * Telephone Encounter - Tiff Paulson MA - 02/20/2025 10:06 AM EST Chart Prep Labs: not done Images: not applicable Referrals: closed Vaccines due: no updates Screenings: not applicable Overdue care gaps: Not applicable documented in this encounter Plan of Treatment [...] Beck MA documented as of this encounter Visit Diagnoses Not on filedocumented in this encounter Additional Health Concerns Active [...] documented as of this encounter Care Teams Scaffolding Helper Relationship Specialty Start Date End Date Genia Jarquin MD [address] [place] [address] PCP - General Family Medicine 02/15/12 Scooby Dwyer, TereseD [address] [place] [address] Pharmacist Internal Medicine 04/23/23 Bev Rojas 09/10/22 documented as of this encounter
--- OUTSIDE RECORDS SUMMARY | 2025-02-23 15:51 | XMS_ITS | Encounter Summary ---
Author Organization [employer] Address [address] [facility] [address] [place] [address] Care Team Providers Care Ct Technologist Name Role Phone Genia Jarquin MD Primary Care Provider [phone] Scooby Dwyer PharmD Unavailable [phone] Encounter Details Date Type Department Care Team (Latest Contact Info) Description 02/23/2025 Travel Social History Tobacco Use Types Packs/Day Years [...] Component 6.3( 11:37 AM EST) No Scooby Dwyer, Lissette Help patients manage their type 2 diabetes [...] chronic kidney disease No Tiff Paulson MA Patient has chronic kidney disease Care Plan Patient has chronic kidney disease No Tiff Paulson MA documented as of this encounter Visit [...] documented as of this encounter Care Teams Ct Technologist Relationship Specialty Start Date End Date Genia Jarquin MD [address] [place] [address] PCP - General Family Medicine 02/15/12 Scooby Dwyer, TereseD [address] [place] [address] Pharmacist Internal Medicine 04/23/23 Bev Rojas 09/10/22 documented as of this encounter
--- OUTSIDE RECORDS SUMMARY | 2025-02-23 15:51 | XMS_ITS | Encounter Summary ---
Author Organization [employer] Address [address] [facility] [address] [place] [address] Care Team Providers Care Tow Motor Driver Name Role Phone Genia Jarquin MD Primary Care Provider [phone] Scooby Dwyer PharmD Unavailable [phone] Encounter Details Date Type Department Care Team ([facility] st Contact Info) Description 08/02/2023 Abstract [facility] [address] [place], [place] [phone] Genia Jarquin MD [address] [place], [place] [phone] Social History Tobacco Use Types Packs/Day Years [...] Pressure 150/68(2024 11:21 AM EST) No Scooby Dwyer PharmD Hemoglobin A1c < 7 Result Component 6.3( 11:37 AM EST) No Scooby Dwyer PharmD documented as of this encounter Procedures Procedure Name Priority Date/Time Associated Diagnosis Comments DIABETES EYE EXAM Routine 07/02/2023 documented in this encounter Results * Diabetes Eye Exam (07/02/2023) Pathologist [facility] Eye Exam Normal Normal 07/02/2023 Historical Provider HEALTH MAINTENANCE Final Result documented in this encounter Visit Diagnoses Not on filedocumented in this encounter Additional Health Concerns Assessment Noted Time PHQ-9 Depression Total Score: 0 09/13/19 23 10:39 AM EDT documented as of this encounter Care Teams Tow Motor Driver Relationship Specialty Start Date End Date Genia Jarquin MD [address] [place] [address] PCP - General Family Medicine 02/15/12 Scooby Dwyer PharmD [address] [place] [address] Pharmacist Internal Medicine 04/23/23 Bev Rojas 6/11/23 documented as of this encounter
--- OUTSIDE RECORDS SUMMARY | 2025-02-23 15:51 | XMS_ITS | Encounter Summary ---
Author Organization [employer] Address [address] [facility] [address] [place] [address] Care Team Providers Care Web Portal Developer Name Role Phone Genia Jarquin MD Primary Care Provider [phone] Scooby Dwyer PharmD Unavailable [phone] Encounter Details Date Type Department Care Team ([facility] st Contact Info) Description 12/18/2023 Orders Only [facility] [address] [place], [place] [phone] Genia Jarquin MD [address] [place], [place] [phone] Essential hypertension Social History Tobacco Use Types [...] documented as of this encounter Care Teams Web Portal Developer Relationship Specialty Start Date End Date Genia Jarquin MD [address] [place] [address] PCP - General Family Medicine 02/15/12 Scooby Dwyer PharmD [address] [place] [address] Pharmacist Internal Medicine 04/23/23 Bev Rojas 09/10/22 documented as of this encounter
--- OUTSIDE RECORDS SUMMARY | 2025-02-23 15:51 | XMS_ITS | Encounter Summary ---
Author Organization [employer] Address [address] [facility] [address] [place] [address] Care Team Providers Care Trucking Contractor Name Role Phone Genia Jarquin MD Primary Care Provider [phone] Scooby Dwyer PharmD Unavailable [phone] Encounter Details Date Type Department Care Team ([facility] st Contact Info) Description 10/19/2023 Orders Only [facility] [address] [place], [place] [phone] Genia Jarquin MD [address] [place], [place] [phone] Anemia, unspecified type (Primary Dx); Stage 3a [...] Reticulocytes Absolute 0.064 0.026 - 0.095 X10*6/uL [facility] Immature Retic Fraction 6.9 2.3 - 13.4 % [facility] Retic HGB Equivalent 36.7(H) 30.0 - 35.0 pg [facility] Reticulocyte Percent 1.6 0.5 - 1.8 % [facility] Blood Venous blood specimen / Unknown 03/17/2024 9:48 AM EST 03/17/2024 12:16 PM EST Genia Jarquin MD LAB BLOOD ORDERABLES Final Resul t Performing Organization Address City/[facility] Co de Phone Number [facility] [address] [place] [phone] * Vitamin B12 (Cobalamin) and Folate Panel, Serum (03/17/2024 9:48 AM EST) Vitamin B12 334 200 - 900 pg/mL [facility] Comment:NORMAL 200-900 PG/ML INDETERMINATE 160-199 PG/ML DEFICIENT < 160 PG/ML Folate 13.5 > or = 4.0 ng/mL [facility] Comment:Reference Values:> o r = 4.0 ng/mL< 4.0 ng/mL suggests folate deficiency Methotrexate, aminopterin and folinic acid(leucovorin) are chemotherapeutic agents whose molecularstructures are similar to folate; therefore, the Architectfolate assay cannot be used for patients using these drugs. Blood 03/17/2024 9:48 AM EST 03/17/2024 12:16 PM EST Genia Jarquin MD LAB BLOOD ORDERABLES Final Resul t [facility] [address] [place] [address] [phone] * Pathologist Review - CBC (03/17/2024 9:48 AM EST) Pathologist Review - CBC SEE NOTE [facility] Comment:Normochromic macrocy tic anemia; occasional echinocytes arepresent. The differential includes liver or thyroiddisease, alcohol, monoclonal proteins and myelodysplasticsyndrome, among other etiologies.- Ron Neely M.D. Pathology Blood Venous blood specimen / Unknown 03/17/2024 9:48 AM EST 03/17/2024 12:16 PM EST Genia Jarquin MD LAB BLOOD ORDERABLES Final Resul t Performing Organization Address [facility] Co de Phone Number [facility] [address] [place] [address] [phone] * Iron And Total Iron Binding Capacity (03/17/2024 9:48 AM EST) Iron 98 45 - 160 mcg/dL [facility] Total Iron Binding Capacity 235 228 - 428 mcg/dL [facility] Percent Iron Saturation 42 15 - 50 % [facility] Unsaturated Iron Binding 137 ug/dL [facility] Blood Venous blood specimen / Unknown 03/17/2024 9:48 AM EST 03/17/2024 12:16 PM EST Genia Jarquin MD LAB BLOOD ORDERABLES Final Resul t Performing Organization Address [facility] Co de Phone Number [facility] [address] [place] [address] [phone] * Ferritin (03/17/2024 9:48 AM EST) Ferritin 133 20 - 250 ng/mL [facility] Blood Venous blood specimen / Unknown 03/17/2024 9:48 AM EST 03/17/2024 12:16 PM EST us Genia Jarquin MD LAB BLOOD ORDERABLES Final Resul t [facility] [address] [place] [address] [phone] * (ABNORMAL) CBC auto differential (03/17/2024 9:48 AM EST) White Blood Count 6.4 4.8 - 10.8 X10*3/uL [facility] Red Blood Count 4.07(L) 4.60 - 5.80 X10*6/uL [facility] Hemoglobin 13.5(L) 14.0 - 18.0 g/dl [facility] Hematocrit 40.8(L) 42.0 - 52.0 % [facility] Mean Corpuscular Volume 100.2(H) 80.0 - 98.0 fL [facility] Mean Corpuscular Hemoglobin 33.2(H) 27.0 - 33.0 pg [facility] Mean Corpuscular HGB Conc 33.1 31.0 - 36.0 g/dl [facility] Red Cell Distribution Width 12.3 11.0 - 16.0 % [facility] Platelet Count 146(L) 160 - 400 X10*3/uL [facility] Mean Platelet Volume 11.7 9.4 - 12.4 fL [facility] Neutrophils Percent Auto 52.2 45 - 73 % [facility] Imm Gran Pct Auto 0.3 0.0 - 0.4 % [facility] Lymphocytes Percent Auto 38.3 20 - 40 % [facility] Monocytes Percent Auto 7.3 2 - 11 % [facility] Eosinophils Percent Auto 1.6 0 - 4 % [facility] Basophils Percent Auto 0.3 0 - 2 % [facility] NRBC Pct Auto 0.0 0.0 - 0.2 /100WBC [facility] Neutrophils Absolute Auto 3.3 2.0 - 8.3 x10*3/uL [facility] Imm Gran Abs Auto 0.02 0.00 - 0.03 X10*3/uL [facility] Lymphocytes Absolute Auto 2.5 1.2 - 4.9 X10*3/uL [facility] Monocytes Absolute Auto 0.5 0.1 - 1.2 X10*3/uL [facility] Eosinophils Absolute Auto 0.1 0.0 - 0.4 X10*3/uL [facility] Basophils Absolute Auto 0.0 0.0 - 0.2 X10*3/uL [facility] NRBC Abs Auto 0.000 0.0 - 0.012 X10*3/uL [facility] Blood Venous blood specimen / Unknown 03/17/2024 9:48 AM EST 03/17/2024 12:16 PM EST us Genia Jarquin MD LAB BLOOD ORDERABLES Final Resul t [facility] [address] [place] [address] [phone] documented in this encounter Visit Diagnoses Diagnosis Anemia, unspecified type- Primary Stage 3a chronic kidney disease (CMS/HCC) (HCC) documented in this encounter Additional Health Concerns Assessment Noted Time PHQ-9 Depression Total Score: 2 10/18/19 24 10:09 AM EDT documented as of this encounter Care Teams Trucking Contractor Relationship Specialty Start Date End Date Genia Jarquin MD [address] [place] [address] PCP - General Family Medicine 02/15/12 Scooby Dwyer, TereseD [address] [place] [address] Pharmacist Internal Medicine 04/23/23 Bev Rojas 09/10/22 documented as of this encounter
--- OUTSIDE RECORDS SUMMARY | 2025-02-23 15:52 | XMS_ITS | Clinical Summary ---
Author Organization [employer] Address [address] [facility] [address] [place] [address] Care Team Providers Care Ground Operations Superintendent Name Role Phone Genia Jarquin MD Primary Care Provider [phone] Scooby Dwyer PharmD Unavailable [phone] Allergies Active Allergy Reactions Criticality Noted Date [...] fever 90 tablet 1 10/18/19 24 Active rosuvastatin (Crestor) 20 MG tablet TAKE 1 TABLET BY MOUTH EVERY DAY 90 tablet 3 09/16/19 25 Active lisinopril 20 MG tablet TAKE 1 TABLET BY MOUTH EVERY DAY 90 tablet 3 11/13/19 25 Active amLODIPine (Norvasc) 5 MG tabletIndications :Essential hypertension TAKE 1 TABLET BY MOUTH EVERY DAY 90 tablet 3 12/12/19 25 Active aspirin (Aspirin Low Dose) 81 MG EC tabletIndications :At high risk for cardiovascular disease TAKE 1 TABLET BY MOUTH EVERY MORNING 90 tablet 3 02/04/20 25 Active levETIRAcetam (Keppra) 500 MG tablet Take 500 mg by mouth 2 times daily. 12/10/19 Active aspirin (Aspirin Low Dose) 81 MG EC tabletIndications :At high risk for cardiovascular disease TAKE 1 TABLET BY MOUTH EVERY MORNING 90 tablet 3 03/05/20 24 2024 Discontinued levETIRAcetam (Keppra) 250 MG tablet Take 250 mg by mouth 2 times daily. 06/04/19 25 2024 Discontinued(M ed list cleanup (will not trigger notification to Pharmacy)) Active Problems Problem Noted Date Diagnosed Date Generalized seizure disorder (CMS/HCC) Assessment & Plan (02/23/2025 5:59 AM EST): - Following with neurologist, [facility], last seen on 12/09/2024. [...] 500 mg twice daily - Driving precaution Carotid stenosis 02/23/2025 Assessment & Plan (02/23/2025 12:20 PM EST): - CTA in Jan 2024 showed: Right Common Carotid Artery: No focal stenosis or occlusion; Cervical Right Internal Carotid Artery: Mild calcific atherosclerotic disease of the carotid bulb and proximal internal carotid artery without flow-limiting stenosis. Left Common Carotid Artery: No focal stenosis or occlusion. Cervical Left Internal Carotid Artery: Calcific atherosclerotic disease of the carotid bulb and proximal internal carotid artery causing less than 50% stenosis. Health care maintenance 11/04/2024 Assessment & Plan (11/04/2024 5:12 PM EDT): - immunizations up to date except COVID19 - colonoscopy in 2018 - last lab Mar 2024 Heart murmur 08/11/2024 Assessment & Plan (02/23/2025 12:17 PM EST): - Echo (TTE) 10/15/24: Normal left ventricular systolic function. Ejection fraction 58%. Moderate aortic valve stenosis. - Murmur most likely due to aortic stenosis - Asymptomatic - Active surveillance with annual transthoracic echocardiogram Assessment & Plan (11/04/2024 5:10 PM EDT): - Echo (TTE) 08/11/24: Normal left ventricular systolic function. Ejection fraction 58%. Moderate aortic valve stenosis. - Murmur most likely due to aortic stenosis -Await for CDTM; consider referral to sign carpenter Assessment & Plan (08/12/2024 7:31 AM EDT): - Ordered Transthoracic Echo (TTE) Complete 08/11/24 Syncopal episodes 03/17/2024 Assessment & Plan (11/04/2024 5:02 PM EDT): - 01/28/24 Taken to [facility] ED by EMS. Developed [...] 7:43 AM EDT): - 01/28/24 Taken to [facility] ED by EMS. Developed [...] 5:18 PM EST): - 01/28/24 Taken to [facility] ED by EMS. Developed seizure-like episode in ED. Given Levetiracetam IV and lorazepam. - Hospitalized for further evaluation, but left AMA - Referring to neurology for EEG and further evaluation - Evaluate with RUBI. Seizure-like activity ([facility]/HCC) 03/15/2024 Assessment & Plan (11/04/2024 5:03 PM EDT): - 01/28/24, witnessed in ED. Received levetiracetam 1500 mg IV and lorazepam - admitted to [facility], but left AMA - CTA showed no mass, acute hemorrhage / infarct, or flow-limiting stenosis. - Dr. Escalante, neurology resourcing consultant, recommended to evaluate for a new-onset seizure with EEG and continue levetiracetam 500 mg bidlan. Assessment & Plan (08/11/2024 9:03 AM EDT): - 01/28/24, witnessed in ED. Received levetiracetam 1500 mg IV and lorazepam - admitted to [facility], but left AMA - CTA showed no mass, acute hemorrhage / infarct, or flow-limiting stenosis. - Dr. Escalante, neurology resourcing consultant, recommended to evaluate for a new-onset seizure with EEG and continue levetiracetam 500 mg bid - referred to Neurology 03/17/24 for EEG, pt agreed with plan. Assessment & Plan (03/17/2024 5:18 PM EST): - 01/28/24, witnessed in ED. Received levetiracetam 1500 mg IV and lorazepam - admitted to [facility], but left AMA - CTA showed no mass, acute hemorrhage / infarct, or flow-limiting stenosis. - Dr. Escalante, neurology resourcing consultant, recommended to evaluate for a new-onset [...] year Essential hypertension 12/31/2014 Assessment & Plan (02/23/2025 12:25 PM EST): -Goal BP < 130/80 per ACC/AHA guideline (Treatment threshold >= 130 ) -BP elevated today -Continue working on lifestyle modifications -Continue monitoring home BP. -Continue current medications: Lisinopril 20 mg daily; amlodipine 5 mg daily -Treatment Hx: hydrochlorothiazide was discontinued due to EMILY / CKD. Assessment & Plan (11/04/2024 1:22 PM EDT): [...] attempt x 4 - Last hospitalization in [facility] in August 2022 - [facility] attempt x 4 - Last hospitalization in [facility] in August 2022 - [facility] attempt x 4 - Last hospitalization in [facility] in August 2022 - [facility] attempt x 4 - Recent hospitalization at [facility] in August 2022 - Current [facility] provider: [facility] - Current medications: Mirtazapine 45 mg at bedtime and lorazepam 1 mg prn Assessment & Plan (12/13/2022 10:16 AM EDT): - Hx psychiatric hospitalization in 1998 and 1999 for MDD with SI/SA. - Hx Suicide attempt x 4 - Recent hospitalization at [facility] in August 2022 - [facility] will benefit from continued OP therapy with [facility]. At this time Hesham Ochoa meets criteria for Visit Diagnoses: Problem List Items Addressed This Visit None Patient ready to address current needs Yes Strengths include access to treatment and motivation for change PLAN: 1. Follow up with [facility]: Not recommended for follow-up 2. Patient goal is to continue OP therapy and explore additional coping mechanisms 3. Behavioral Recommendations a. OP therapy b. Medication management c. Explore additional coping mechanisms Assessment & Plan (09/12/2022 5:54 AM EDT): - Hx psychiatric hospitalization in 1998 and 1999 for MDD with SI/SA. - Hx Suicide attempt x 4 - Recent hospitalization at [facility] in August 2022 - Current [facility] provider: [facility] - Current medications: Mirtazapine 45 mg [...] Resolved Date Stage 3a chronic kidney disease ([facility]/HCC) 03/20/2017 03/17/2024 Encounters Date Type Department Care Team Description 02/23/2025 11:30 AM EST Office Visit [facility] [address] [place] [phone] Genia Jarquin MD Dyslipidemia (Primary Dx); Essential hypertension; Allergic rhinitis, unspecified seasonality, unspecified trigger; Diabetes mellitus type 2, controlled ([facility]); Vitamin D deficiency; Gastroesophageal reflux disease, unspecified whether esophagitis present; Malignant neoplasm of urinary bladder, unspecified site ([facility]); Episode of recurrent major depressive disorder, unspecified depression episode severity ([facility]); Generalized anxiety disorder; Generalized seizure disorder ([facility]) ([facility]); Encounter for immunization; Left carotid artery stenosis; Heart murmur; Stenosis of left carotid artery 02/23/2025 Travel 02/20/2025 Telephone [facility] [address] [place], [place] [phone] Tiff Paulson [place] 02/03/2025 Refill [facility] [address] [place], [place] [phone] Genia Jarquin MD At high risk for cardiovascular disease 12/11/2024 Refill [facility] [address] [place], [place] [phone] Genia Jarquin MD Essential hypertension 12/10/2024 Telephone [facility] [address] [place] [address] [phone] Genia Jarquin MD january recall from Last 3 Months Immunizations Immunization Administration Dates Next Due Hep B, adult 09/16/2018,08/08/2016,07/10/2016 Influenza Quadrivalent Adjuvanted 12/11/2022 Influenza injectable quadriv alent IIV4 with preservative 01/25/2016 Influenza injectable quadriv alent preservative free 03/07/2021,01/12/2020,04/28/2019,12/31 Influenza, High Dose Seasona l, Preservative Free 02/23/2025,03/17/2024,12/24/2017,12/25 Influenza, IIV3, injectable 03/03/2014, 0,03/10/2009 Influenza, Split (incl. zachariah fied surface antigen) 01/30/2013,04/10/2012 Pfizer Covid-19 Vaccine 12+ 02/23/2025,1 05/18/2023,04/04/2023,06/24 Pneumococcal Conjugate PCV 13 09/07/2014 Pneumococcal Polysaccharide [...] Mass Index 20.36 02/23/2025 11:12 AM EST Plan of Treatment Health Maintenance Due Date Last Done Comments Alcohol/Substance Use Screening 03/17/2025 03/17/2024 Depression Screening 03/17/2025 03/17/2024, 03/17/20 24 Lipid Panel 03/17/2025 03/17/2024, 0711/2023, 09/12/2022, Additional history exists Diabetes: Hemoglobin A1C 05/26/2025 025, 11/03/2024, 08/11/2024, Additional history exists Eye Exam 07/01/2025 07/02/2023 SDOH Screening 08/11/2025 08/11/2024 COVID-19 Vaccine ( season) 2025 02/23/2025, 03/17/2024, 04/04/2023, Additional history exists Diabetes: Foot Exam 11/03/2025 11/03/2024, 11/03/2024, 11/03/2024, Additional history exists Diabetes: Urine Protein Screening 02/23/2026 02/23/2025, 05/31/2023, 08/25/2021, Additional history exists Tobacco Screening 02/23/2026 02/23/2025 DTaP/Tdap/Td Vaccines (4 - Td or Tdap) 09/25/2030 09/25/2020, 04/28/2019, 03/10/2009 Pneumococcal Vaccine: 50+ Years Completed 09/07/2014, 08/24/2014, 11/11/2010 Hepatitis B Vaccines Completed 09/16/2018, 08/08/2016, 07/10/2016 RSV Patients and Patients Aged 60 years or older Completed 05/31/2023 Zoster Vaccines Completed 08/30/2023, 05/04, 09/07/2014 Influenza Vaccine Completed 02/23/2025, , 12/11/2022, Additional history exists HIB Vaccines Aged Out No longer eligi ble based on patient's age to complete this topic HPV Vaccines Aged Out No longer eligi ble based on patient's age to complete this topic Hepatitis A Vaccines Aged Out No long er eligible based on patient's age to complete this topic IPV Vaccines Aged Out No longer eligi [...] 150/68(2024 11:21 AM EST) No Scooby Dwyer, PharmMichael Hemoglobin A1c < 7 Result Component 6.3( 11:37 AM EST) No Scooby Dwyer, PharmMichael Help patients manage their type 2 diabetes [...] chronic kidney disease No Tiff Paulson MA Procedures Procedure Name Priority Date/Time Associated Diagnosis Comments VITAMIN D,25-OH,TOTAL,IA Routine 02/23/2025 12:03 PM EST Vitamin D deficiency ALBUMIN, RANDOM URINE W/CREATININE Routine 02/23/2025 12:03 PM EST Controlled type 2 diabetes mellitus without complication, without long-term current use of insulin ([facility]) POCT GLYCOSYLATED HEMOGLOBIN (HGB A1C) Routine 02/23/2025 11:37 AM EST Diabetes mellitus type 2, controlled ([facility]) POCT GLUCOSE Routine 02/23/2025 11:37 AM EST Diabetes mellitus type 2, controlled ([facility]) LIPID PANEL WITH REFLEX TO DIRECT LDL Routine 03/17/2024 9:48 AM EST Controlled type 2 diabetes mellitus without complication, without long-term current use of insulin ([facility]) Dyslipidemia DIABETES EYE EXAM Routine 07/02/2023 from Last 3 Months or Most Recently Relevant to Health Maintenance Results * Albumin, Random Urine W/Creatinine (02/23/2025 12:03 PM EST) Creatinine, Urine 64.55 mg/dL [facility] Microalbumin Urine <5.0 mg/L [facility] Microalbum Creatinine Ratio Ur TNP <30 ug/mg cr [facility] Comment:Unable to calculate albumin/creatinine ratio due to lowmicroalbumin or creatinine result. Urine 02/23/2025 12:0 3 PM EST 02/23/2025 12:56 PM EST Genia Jarquin MD LAB URINE ORDERABLES Final Resul t [facility] [address] [place] [phone] * (ABNORMAL) POCT glycosylated hemoglobin (Hgb A1c) (02/23/2025 11:37 AM EST) Hemoglobin A1C 6.3(A) 4.0 - 5.7 % QC Media Lot # [id number] Lot# Expiration Date Blood Capillary blood specimen / Unknown 02/23/2025 11:37 AM EST Genia Jarquin MD POINT OF CARE TEST ENTER/EDIT OR DERABLES Final Result * POCT glucose manually resulted (02/23/2025 11:37 AM EST) Glucose Blood, POC 155 60 - 200 mg/dL QC Media Lot # [id number] Lot# Expiration Date Blood Capillary blood specimen / Unknown 02/23/2025 11:37 AM EST Genia Jarquin MD POINT OF CARE TEST ENTER/EDIT OR DERABLES Final Result * Lipid Panel with Reflex to Direct LDL (03/17/2024 9:48 AM EST) Triglycerides 76 <150 mg/dL [facility] Comment:Desirable Triglyceri de: less than 150 mg/dLBorderline High Triglyceride 150-199 mg/dLHigh Triglyceride: 200-499 mg/dLVery High Triglyceride: greater than or equal to 5OO mg/dL Cholesterol 136 <200 mg/dL [facility] Comment:Desirable Cholestero l: less than 200 mg/dLBorderline High Cholesterol: 200-239 mg/dLHigh Cholesterol: greater than 239 mg/dL LDL Cholesterol Calculated 67 <100 mg/dL [facility] Comment:Desirable LDL: less than 100 mg/dLNear Optimal/Above Optimal LDL: 110- 129 mg/dLBorderline High LDL: 130-159 mg/dLHigh LDL: 160-189 mg/dLVery High LDL: greater than or equal to 190 mg/dL HDL Cholesterol 54 >40 mg/dL [facility] Comment:Desirable HDL: great er than 40 mg/dL Note: This HDL assay may give artificially low results in patients with liver disease. Blood 03/17/2024 9:48 AM EST 03/17/2024 12:16 PM EST Genia Jarquin MD LAB BLOOD ORDERABLES Final Resul t [facility] [address] [place], [place] [phone] * Diabetes Eye Exam (07/02/2023) Eye Exam Normal Normal 07/02/2023 Historical Provider HEALTH MAINTENANCE Final Result from Last 3 Months or Most Recently Relevant to Health Maintenance Additional Health Concerns Active Problems Noted Date [...] 02/20/2025 Patient has chronic kidney disease 02/20/[address] [place] [address] [facility] [employer] MEDIC[employer] Care Teams Ground Operations Superintendent Relationship Specialty Start Date End Date Genia Jarquin MD [address] [place] [address] PCP - General Family Medicine 02/15/12 Scooby Dwyer, PharmD [address], [place] Pharmacist Internal Medicine 04/23/23 Bev Rojas 09/10/22
--- OUTSIDE RECORDS SUMMARY | 2025-02-23 15:52 | XMS_ITS | Encounter Summary ---
Author Organization [email or web address] Address [address] [facility] [address] [place] [address] Care Team Providers Care Watch Train Assembler Name Role Phone Genia Jarquin MD Primary Care Provider [phone] Scooby Dwyer PharmD Unavailable [phone] Reason for Visit * Reason Comments Med Refill Encounter Details Date Type Department Care Team (Late st Contact Info) Description 09/08/2022 Refill [facility] [address] [place], [place] [phone] Genia Jarquin MD [address] [place] [address] Social History Tobacco Use Types Packs/Day Years [...] documented as of this encounter Care Teams Watch Train Assembler Relationship Specialty Start Date End Date Genia Jarquin MD [address] [place] [address] PCP - General Family Medicine 02/15/12 Scooby Dwyer, TereseD [address] [place] [address] Pharmacist Internal Medicine 04/23/23 Bev Rojas 09/10/22 documented as of this encounter
[2025-02-23 15:55] LABS: Anion Gap 11 (12-20)
[2025-02-23 16:00] LABS: Alanine Aminotransferase 21 U/L (0-40); Albumin Level 4.4 g/dL (3.5-5.0); Alkaline Phosphatase 44 U/L (39-117); Aspartate Amino Transferase 34 U/L (5-37); Blood Urea Nitrogen 16 mg/dL (9-16); Calcium 9.2 mg/dL (8.4-10.2); Carbon Dioxide 25 mmol/L (22-29); Chloride 107 mmol/L (96-108); Cholesterol 157 mg/dL (<200); Estimated Glomerular Filt Rate 59; HDL Cholesterol 52 mg/dL (>40); Potassium 4.0 mmol/L (3.3-5.1); Sodium 139 mmol/L (135-145); Total Protein 7.4 g/dL (6.5-8.0); Triglycerides 101 mg/dL (<150)
[2025-02-23 16:56] LABS: Reflex LDLD? No
== END 2025-02-23 11:54 | disposition home or self-care (01) ==
LOC: HO.HHCL 11:53
PROVIDERS: PCP Family Medicine; Visit Provider Family Medicine
DX: E11.9 Type 2 diabetes mellitus without complications (principal); I10 Essential (primary) hypertension; E78.5 Hyperlipidemia, unspecified; E55.9 Vitamin D deficiency, unspecified
CPT/HCPCS: 36415; 80053; 80061; 82043; 82306; 82570